=== PATIENT | female | born 1980 | race Caucasian/White ===

== ENCOUNTER 2024-03-28 13:24 | Outpatient (CLI) | payer OTHER, SELFPAY ==
--- OUTSIDE RECORDS SUMMARY | 2024-03-28 14:12 | XMS_ITS | Encounter Summary ---
Author Organization [facility] Address [address] [place] [address]. [place] [address] [place] [address] Care Team Providers Care Director Of Partner Marketing Name Role Phone Medardo Ellington MD Primary Care Provider + Encounter Details Date Type Department Care Team ([facility] Contact Info) Description 08/11/[address] [facility] [address] [place] [address] Medardo Ellington MD [address] [place] [address] [place] Social History Tobacco Use Types Packs/Day Years Used Date Smoking Tobacco: Former Cigarettes 2013 Smokeless Tobacco: Current Comments:currently vapes Alcohol Use Standard Drinks/Week Comments Not Currently 0 (1 standard drink = 0.6 oz pur e alcohol) AUDIT-C Answer Date Recorded Frequency of Alcohol Consumption Never 01/15/2018 Average Number of Drinks Not on file 018 Frequency of Binge Drinking Not on file 12/28 PHQ-2 Answer Date Recorded Patient Health Questionnaire-2 Score 0 04/26/2023 Comments No Sex and Gender Information Value Date Recorded Sex Assigned at Female 12/06/2018 11:13 AM CDT Legal Sex Female 8:20 PM CDT Gender Identity Female 12/06/2018 11:13 AM CDT Sexual Orientation Straight 12/06/2018 11 :13 AM CDT documented as of this encounter Plan of Treatment Upcoming Encounters Date Type Department Care Team ([facility] Contact Info) Description 04/17/2024 11:00 AM AIR TRAFFIC CONTROL SPECIALIST [facility] [address] [facility], [address] [place] [phone] Rebecca Berg MD 3 [facility] [place] [address] 06/25/2024 11:20 AM CDT [facility] 3 [facility], [address] [place] [phone] Peggy Urbina NP 3 [facility] [address] [place] [address] 07/02/2024 10:30 AM CDT Office Visit [facility] [address] [place] [address] Joe Herrera MD 3 [facility] [address] [place] [phone] documented as of this encounter Visit Diagnoses Not on filedocumented in this encounter Additional Health Concerns Assessment Noted Time PHQ-9 Depression Total Score: 0 04/15/19 22 2:24 PM AIR TRAFFIC CONTROL SPECIALIST documented as of this encounter Care Teams Director Of Partner Marketing Relationship Specialty Start Date End Date Medardo Ellington MD [address] [place] [address] PCP - General FAMILY PRACTICE 08/24/18 documented as of this encounter
--- OUTSIDE RECORDS SUMMARY | 2024-03-28 14:12 | XMS_ITS | Encounter Summary ---
Author Organization [facility] Address [address] [place] [address]. [place] [address] [place] [address] Care Team Providers Care Actuarial Technician Name Role Phone Medardo Ellington MD Primary Care Provider + Encounter Details Date Type Department Care Team (Late st Contact Info) Description 02/07/2024 [employer] Message [address] [address] [facility] Provider results Social History Tobacco Use Types Packs/Day Years Used Date Smoking Tobacco: Former Cigarettes 2013 Passive Smoke Exposure: Past Smokeless Tobacco: Current Comments:currently vapes Alcohol Use Standard Drinks/Week Comments Not Currently 0 (1 standard drink = 0.6 oz pur e alcohol) AUDIT-C Answer Date Recorded Frequency of Alcohol Consumption Never 01/15/2018 Average Number of Drinks Not on file 018 Frequency of Binge Drinking Not on file 12/28 PHQ-2 Answer Date Recorded Patient Health Questionnaire-2 Score 0 02/06/2024 Comments No Sex and Gender Information Value Date Recorded Sex Assigned at Female 12/06/2018 11:13 AM CDT Legal Sex Female 8:20 PM CDT Gender Identity Female 12/06/2018 11:13 AM CDT Sexual Orientation Straight 12/06/2018 11 :13 AM CDT documented as of this encounter Plan of Treatment Upcoming Encounters Date Type Department Care Team (Late st Contact Info) Description 04/17/2024 11:00 AM PHARMACY DISTRICT MANAGER Office Visit [facility] [address] [place] [address] Rebecca Berg MD 3 [facility] [place] [address] 06/25/2024 11:20 AM CDT Office Visit [facility] 3 [facility], [address] [place] [address] Peggy Urbina NP 3 [facility] [address] [place] [address] 07/02/2024 10:30 AM CDT [facility] [address] [place] [address] Joe Herrera MD 3 [facility] [address] [place] [address] documented as of this encounter Visit Diagnoses Not on filedocumented in this encounter Additional Health Concerns Assessment Noted Time PHQ-9 Depression Total Score: 0 04/15/19 22 2:24 PM PHARMACY DISTRICT MANAGER documented as of this encounter Care Teams Actuarial Technician Relationship Specialty Start Date End Date Medardo Ellington MD [address] [place] [address] PCP - General FAMILY PRACTICE 08/24/18 documented as of this encounter
--- OUTSIDE RECORDS SUMMARY | 2024-03-28 14:12 | XMS_ITS | Encounter Summary ---
Author Organization [facility] Address [address] [place] [address]. [place], [place] [address] [place] [address] Care Team Providers Care Food Science Technician Name Role Phone Weston Pemberton DO Primary Care Provider Medardo Ellington MD Primary Care Provider + Encounter Details Date Type Department Care Team (Late st Contact Info) Description 01/27/2017 Abstract [email or web address] Conversion Medardo Ellington MD [address] [address] Social History Tobacco Use Types Packs/Day Years Used Date Smoking Tobacco: Never Assessed Comments Unknown Sex and Gender Information Value Date Recorded Sex Assigned at Female 12/06/2018 11:13 AM CDT Legal Sex Female 8:20 PM CDT Gender Identity Female 12/06/2018 11:13 AM CDT Sexual Orientation Straight 12/06/2018 11 :13 AM CDT documented as of this encounter Miscellaneous Notes * Letter - Medardo Ellington MD - 01/27/2017 12:00 AM CST Jan 27, 2017 Cara Cerda [address] [place] [address] Dear Cara Cerda, Thank you for choosing [facility] for your health care needs. We appreciate the opportunity to help you maintain your well being. You recently had labs drawn (CBC). Your results came back normal. Please remember to follow up as discussed at your last appointment .If you have any questions please feel free to call the office at [phone], Option #3 or Option #1 to make an appointment to discuss these results. Respectfully Yours, Electronically Signed by: Medardo Ellington MD Cc: Patients Medical Record NSE TRAVEL ADMINISTRATOR documented in this encounter Plan of Treatment Upcoming Encounters Date Type Department Care Team (Late st Contact Info) Description 04/17/2024 11:00 AM DEFENSE TRAVEL ADMINISTRATOR Office [facility] 3 [facility], [address] [place] [phone] Rebecca Berg MD [address] [place] [address] 06/25/2024 11:20 AM CDT Office Visit [facility] 3 [facility], [address] [place] [phone] Peggy Urbina NP 3 [facility] [address] [place] [address] 07/02/2024 10:30 AM CDT [facility] [address] [place] [phone] Joe Herrera MD 3 [facility] [address] [place] [address] documented as of this encounter Visit Diagnoses Not on filedocumented in this encounter Additional Health Concerns Infection Onset Date Last Indicated Resolved Time COVID-19 Rule Out 11/11/2021 11/11/2021 11/11/2021 9:16 PM CDT documented as of this encounter Care Teams Food Science Technician Relationship Specialty Start Date End Date Weston Pemberton DO PCP - General 08/03/11 08/23/18 Medardo Ellington MD [address] [facility] [address] [place] [address] PCP - General FAMILY PRACTICE 08/24/18 documented as of this encounter
--- OUTSIDE RECORDS SUMMARY | 2024-03-28 14:12 | XMS_ITS | Encounter Summary ---
Author Organization [facility] Address [address] [place] [address]. [place] [address] [place] [address] Care Team Providers Care Refrigeration Repair Supervisor Name Role Phone Medardo Ellington MD Primary Care Provider + Reason for Referral * Surgical (Routine) - Authorized Specialty Diagnoses / Procedures Referred By Contac t Referred To Contact HAND SURGERY / ORTHOPAEDICS Diagnoses Pain of right thumb Procedures OFFICE/OUTPATIENT NEW LOW MDM 30-44 MINUTES OFFICE/OUTPT VISIT,NEW,LEVL IV OFFICE/OUTPT VISIT,NEW,LEVL V OFFICE/OUTPT VISIT,EST,LEVL III OFFICE/OUTPT VISIT,EST,LEVL IV OFFICE/OUTPT VISIT,EST,LEVL V Medardo Ellington MD [address] [address] Phone: tel: fax: Douglas James MD [address] [place] [address] Phone: tel: fax: Referral ID Status Reason Start Date Expiration Date V isits Requested Visits Authorized [id number] Authorized 04/27/2023 05/26/2024 100 100 MITE CARTRIDGE CRIMPER Encounter Details Date Type Department Care Team (Late st Contact Info) Description 04/20/2023 [employer] Message [facility] [address] [place] [address] [facility] Provider results Social History Tobacco Use Types Packs/Day Years Used Date Smoking Tobacco: Former Cigarettes 2013 Electronic Cigarettes Smokeless Tobacco: Current Comments:currently vapes Alcohol Use Standard Drinks/Week Comments No 0 (1 standard drink = 0.6 oz pur e alcohol) AUDIT-C Answer Date Recorded Frequency of Alcohol Consumption Never 01/15/2018 Average Number of Drinks Not on file 018 Frequency of Binge Drinking Not on file 12/28 PHQ-2 Answer Date Recorded Patient Health Questionnaire-2 Score 0 04/18/2023 Comments No Sex and Gender Information Value Date Recorded Sex Assigned at Female 12/06/2018 11:13 AM CDT Legal Sex Female 8:20 PM CDT Gender Identity Female 12/06/2018 11:13 AM CDT Sexual Orientation Straight 12/06/2018 11 :13 AM CDT documented as of this encounter Progress Notes * Isis Eldridge RN - 04/27/2023 11:01 AM CSTFrom: Isis Schultz To: Cara [place]da Sent: 04/20/2023 3:19 PM DYNAMITE CARTRIDGE CRIMPER Subject: results Dr Chnadana Marroquin got your xray results back and he said that your xray showed mild arthritis. He said that if the celebrex isn't helpful, let us know and he will refer you to a hand specialist. Please let meknow if you have any questions. Thanks, JORGE ALBERTO Marinelli MITE CARTRIDGE CRIMPER documented in this encounter Plan of Treatment Upcoming Encounters Date Type Department Care Team (Late st Contact Info) Description 04/17/2024 11:00 AM DYNAMITE CARTRIDGE CRIMPER Office Visit [facility] 3 [facility], [address] [place] [address] Rebecca Berg MD 3 [place] [address] 06/25/2024 11:20 AM CDT Office Visit [facility] - [facility] [address] [facility], [address] [place] [address] Peggy Urbina NP 3 [facility] [address] [place] [address] 07/02/2024 10:30 AM CDT Office Visit [facility] [address] [place] [phone] Joe Herrera MD 3 [facility] [address] [place] [address] Scheduled Referrals Name Type Priority Associated Diagnoses Orde r Schedule Ambulatory referral to Hand Surgery Referral Routine Pain of right thumb Ordered: 04/27/2023 documented as of this encounter Visit Diagnoses Diagnosis Pain of right thumb- Primary Pain in limb documented in this encounter Additional Health Concerns Assessment Noted Time PHQ-9 Depression Total Score: 0 04/15/19 22 2:24 PM DYNAMITE CARTRIDGE CRIMPER documented as of this encounter Care Teams Refrigeration Repair Supervisor Relationship Specialty Start Date End Date Medardo Ellington MD [address] [place] [phone] PCP - General FAMILY PRACTICE 08/24/18 documented as of this encounter
--- OUTSIDE RECORDS SUMMARY | 2024-03-28 14:12 | XMS_ITS | Encounter Summary ---
Author Organization [facility] Address [address] [place] [address]. [place] [address] [place] [address] Care Team Providers Care Flower Cutter Name Role Phone Medardo Ellington MD Primary Care Provider + Reason for Visit * Reason Comments Migraine Migraines are better . They are not everyday. * Consultation (Routine) - Authorized Specialty Diagnoses / Procedures Referred By Contac t Referred To Contact NEUROLOGY Diagnoses Migraine syndrome Procedures OFFICE/OUTPATIENT NEW LOW MDM 30-44 MINUTES OFFICE/OUTPT VISIT,NEW,LEVL IV OFFICE/OUTPT VISIT,NEW,LEVL V OFFICE/OUTPT VISIT,EST,LEVL III OFFICE/OUTPT VISIT,EST,LEVL IV OFFICE/OUTPT VISIT,EST,LEVL V Medardo Ellington MD [address] [address] Phone: tel: fax: [facility] [address], [address] [place] [address] Phone: tel: Referral ID Status Reason Start Date Expiration Date Visits Requested Visits Authorized [id number] Authorized Specialty Services 11/28/2023 12/28/2024 100 100 Encounter Details Date Type Department Care Team (Latest Contact Info) Description 03/28/2024 9:00 AM MAINTENANCE CONTROLLER Office Visit [address], [address] [place] [phone] Peggy Urbina NP 3 [facility] [address] [place] [address] Migraine (Migraines are better. They are not everyday. ) Social History Tobacco Use Types Packs/Day Years Used Date Smoking Tobacco: Former Cigarettes 2013 Passive Smoke Exposure: Past Smokeless Tobacco: Current Tobacco Cessation:Ready to Q uit: No; Counseling Given: Yes Comments:currently vapes Alcohol Use Standard Drinks/Week Comments Not Currently 0 (1 standard drink = 0.6 oz pur e alcohol) AUDIT-C Answer Date Recorded Frequency of Alcohol Consumption Never 01/15/2018 Average Number of Drinks Not on file 018 Frequency of Binge Drinking Not on file 12/28 PHQ-2 Answer Date Recorded Patient Health Questionnaire-2 Score 0 03/07/2024 Comments No Sex and Gender Information Value Date Recorded Sex Assigned at Female 12/06/2018 11:13 AM CDT Legal Sex Female 8:20 PM CDT Gender Identity Female 12/06/2018 11:13 AM CDT Sexual Orientation Straight 12/06/2018 11 :13 AM CDT documented as of this encounter Last Filed Vital Signs Vital Sign Reading Time Taken Comments Blood Pressure - - Pulse 97 03/28/2024 9:12 AM MAINTENANCE CONTROLLER Temperature - - Respiratory Rate - - Oxygen Saturation 97% 03/28/2024 9:12 AM MAINTENANCE CONTROLLER Inhaled Oxygen Concentration - - Weight 92.1 kg (203 lb) 03/28/2024 9:12 AM MAINTENANCE CONTROLLER Height 177.8 cm (5' 10 ) 03/28/2024 9:12 AM MAINTENANCE CONTROLLER Body Mass Index 29.13 03/28/2024 9:12 AM MAINTENANCE CONTROLLER documented in this encounter Plan of Treatment Upcoming Encounters Date Type Department Care Team (Late st Contact Info) Description 04/17/2024 11:00 AM MAINTENANCE CONTROLLER Office [facility] 3 [facility], [address] [place] [phone] Rebecca Berg MD 3 [facility] [place] [address] 06/25/2024 11:20 AM CDT Office Visit [facility] - [facility] 3 [facility], [address] [place] [address] Peggy Urbina NP 3 [facility] [address] [place] [address] 07/02/2024 10:30 AM CDT Office Visit [facility] [address] [place] [address] Joe Herrera MD 3 [facility] [address] [place] [phone] documented as of this encounter Visit Diagnoses Diagnosis Chronic migraine without aura without status migrainosus, not intractable- Primary Chronic migraine without aura, without mention of intractable migraine without mention of status migrainosus documented in this encounter Additional Health Concerns Assessment Noted Time PHQ-9 Depression Total Score: 0 04/15/19 22 2:24 PM MAINTENANCE CONTROLLER documented as of this encounter Care Teams Flower Cutter Relationship Specialty Start Date End Date Medardo Ellington MD [address] [place] [address] PCP - General FAMILY PRACTICE 08/24/18 documented as of this encounter
--- OUTSIDE RECORDS SUMMARY | 2024-03-28 14:12 | XMS_ITS | Encounter Summary ---
Author Organization [facility] Address [address] [place] [address]. [place] [address] [place] [address] Care Team Providers Care Bead Maker Name Role Phone Medardo Ellington MD Primary Care Provider + Encounter Details Date Type Department Care Team (Latest Contact Info) Description 03/21/2024 PS DEPT. Message [facility] [address] Joe Herrera MD [address] [place] [address] [place] [address] EKG results faxed to surgeon Social History Tobacco Use Types Packs/Day Years [...] st Contact Info) Description 04/17/2024 11:00 AM [employer]CE [employer] OFFICER [facility] 3 [facility], [address] [place] [address] Rebecca Berg MD 3 [place] [address] 06/25/2024 11:20 AM CDT [facility] 3 [facility], [address] [place] [address] Peggy Urbina NP 3 [facility] [address] [place] [address] 07/02/2024 10:30 AM CDT Office Visit [facility] [address] [place] [address] Joe Herrera MD 3 [facility] [address] [place] [phone] documented as of this encounter Visit Diagnoses Not on filedocumented in this encounter Additional Health Concerns Assessment Noted Time PHQ-9 Depression Total Score: 0 04/15/19 22 2:24 PM [employer] OFFICER documented as of this encounter Care Teams Bead Maker Relationship Specialty Start Date End Date Medardo Ellington MD [address] [place] [phone] PCP - General FAMILY PRACTICE 08/24/18 documented as of this encounter
--- OUTSIDE RECORDS SUMMARY | 2024-03-28 14:12 | XMS_ITS | Encounter Summary ---
Author Organization [facility] Address [address] [place] [address]. [place], [place] [address] [place] [address] Care Team Providers Care Dimensional Engineer Name Role Phone Medardo Ellington MD Primary Care Provider + Encounter Details Date Type Department Care Team (Latest Contact Info) Description 03/28/2024 Travel Social History Tobacco Use Types Packs/Day Years [...] st Contact Info) Description 04/17/2024 11:00 AM GUINEA PIG BREEDER Office Visit [facility] - [address], [address] [place] [address] Rebecca Berg MD 3 [facility] [place] [address] 06/25/2024 11:20 AM CDT Office Visit [facility] - [facility] [address] [facility], [address] [place] [address] Peggy Urbina NP 3 [facility] [address] [place] [address] 07/02/2024 10:30 AM CDT Office Visit [facility] [address] [place] [address] Joe Herrera MD 3 [facility] [place] [address] [place] [phone] documented as of this encounter Visit Diagnoses Not on filedocumented in this encounter Additional Health Concerns Assessment Noted Time PHQ-9 Depression Total Score: 0 04/15/19 22 2:24 PM GUINEA PIG BREEDER documented as of this encounter Care Teams Dimensional Engineer Relationship Specialty Start Date End Date Medardo Ellington MD [address] [place] [address] PCP - General FAMILY PRACTICE 08/24/18 documented as of this encounter
--- OUTSIDE RECORDS SUMMARY | 2024-03-28 14:12 | XMS_ITS | Encounter Summary ---
Author Organization [facility] Address [address] [place] [address]. [place] [address] [place] [address] Care Team Providers Care Medical Territory Manager Name Role Phone Medardo Ellington MD Primary Care Provider + Encounter Details Date Type Department Care Team (Latest Contact Info) Description 02/01/2024 Egr Renovation Message Enc [facility] Multispecialty Care - [facility] [address] [facility] [place] [address] Estevan Clement MD 3 [facility] [address] [place], [place] [id number] Orders for Tests Social History Tobacco Use Types Packs/Day Years [...] Date Recorded Patient Health Questionnaire-2 Score 0 01/11/2024 Comments No Sex and Gender Information Value Date Recorded Sex Assigned at Female 12/06/2018 11:13 AM CDT Legal Sex Female 8:20 PM CDT Gender Identity Female 12/06/2018 11:13 AM CDT Sexual Orientation Straight 12/06/2018 11 :13 AM CDT documented as of this encounter Plan of Treatment Upcoming Encounters Date Type Department Care Team (Late st Contact Info) Description 04/17/2024 11:00 AM WINDOWS SOFTWARE DEVELOPER Office Visit [facility] [address] [facility], [address] [place] [address] Rebecca Berg MD 3 [facility] [place] [address] 06/25/2024 11:20 AM CDT Office Visit [facility] [address] [facility], [address] [place] [address] Peggy Urbina NP 3 [facility] [address] [place] [address] 07/02/2024 10:30 AM CDT Office Visit [facility] [address] [place] [address] Joe Herrera MD 3 [facility] [address] [place] [phone] documented as of this encounter Visit Diagnoses Not on filedocumented in this encounter Additional Health Concerns Assessment Noted Time PHQ-9 Depression Total Score: 0 04/15/19 22 2:24 PM WINDOWS SOFTWARE DEVELOPER documented as of this encounter Care Teams Medical Territory Manager Relationship Specialty Start Date End Date Medardo Ellington MD [address] [place] [phone] PCP - General FAMILY PRACTICE 08/24/18 documented as of this encounter
--- OUTSIDE RECORDS SUMMARY | 2024-03-28 14:12 | XMS_ITS | Clinical Summary ---
Author Organization [facility] Care Team Providers Care Indian Nanny Name Role Phone Unavailable Primary Care Provider Unavailabl e Social History Tobacco Use Types Packs/Day Years Used Date Smoking Tobacco: Never Assessed Comments Unknown Sex and Gender Information Value Date Recorded Sex Assigned at Not on file Legal Sex Female 12:24 PM FINISHED GOODS STOCK CLERK Gender Identity Not on file Sexual Orientation Not on file Plan of Treatment Health Maintenance Due Date Last Done Comments Hepatitis C Virus (HCV) Screening 1981 TdaP Immunization 1981 Hepatitis B Immunization (1 of 3 - 19+ 3-dose series) 2000 Pap Smear 2002 Cervical Cancer Screening (CCS) 08/28/2011 HPV/Cotest 08/28/2011 Discussion re Starting/Frequency of Mammograms 2021 Influenza Immunization (#1) 10/29/202303/2019, 12/15/2017, 12/25/2014 SARS-COV-2 Immunization ( season) 2023 03/24/2020, 02/25/2020 Respiratory Syncytial Virus (RSV) Immunization (Adult) (1 - 1-dose 75+ series) 2056 Meningococcal Immunization (ACWY) Aged Out No longer eligible b ased on patient's age to complete this topic Pneumococcal Immunization Combined Aged Out No longer eligible b ased on patient's age to complete this topic Rotavirus Immunization Aged Out No lo nger eligible based on patient's age to complete this topic
--- OUTSIDE RECORDS SUMMARY | 2024-03-28 14:12 | XMS_ITS | Encounter Summary ---
Author Organization [facility] Address [address] [place] [address]. [place] [address] [place] [address] Care Team Providers Care Silver Recovery Operator Name Role Phone Weston Pemberton DO Primary Care Provider [phone]- [phone] Medardo Ellington MD Primary Care Provider + Encounter Details Date Type Department Care Team (Late Contact Info) Description 07/04/2017 Abstract [facility] Conversion Md, Generic Conversion, Social History Tobacco Use Types Packs/Day Years [...] Encounters Date Type Department Care Team (Late Contact Info) Description 04/17/2024 11:00 AM WORKFORCE SERVICES REPRESENTATIVE Office Visit [address], [address] [place] [address] Rebecca Berg MD [address] [place] [address] 06/25/2024 11:20 AM CDT Office Visit [address] [place] [phone] Peggy Urbina NP 3 [facility] [address] [place] [address] 07/02/2024 10:30 AM CDT Office Visit [facility] [address] [place] [address] Joe Herrera MD 3 [facility] [address] [place] [address] documented as of this encounter Visit Diagnoses Not on filedocumented in this encounter Additional Health Concerns Infection Onset Date Last Indicated Resolved Time COVID-19 Rule Out 11/11/2021 11/11/2021 11/11/2021 9:16 PM CDT documented as of this encounter Care Teams Silver Recovery Operator Relationship Specialty Start Date End Date Weston Pemberton DO PCP - General 08/03/11 08/23/18 Medardo Ellington MD [address] [place] [address] PCP - General FAMILY PRACTICE 08/24/18 documented as of this encounter
--- OUTSIDE RECORDS SUMMARY | 2024-03-28 14:12 | XMS_ITS | Referral Summary ---
Author Organization [facility] Address [address] [place] [address] Care Team Providers Care Review Scheduling Coordinator Name Role Phone Unavailable Primary Care Provider Unavailabl e Source Comments [facility],non-owned Affiliates and Associated Physician Practices is amultiple site organization consisting of ambulatory clinics and hospital sitesin [place], [place], [place] and [place]. This disclosure is being madepursuant to the Care Everywhere program and may not contain all information available regarding this patient. Last updated 17.[facility] [employer] Social History Tobacco Use Types Packs/Day Years Used Date Smoking Tobacco: Never Assessed Sex and Gender Information Value Date Recorded Sex Assigned at Not on file Gender Identity Not on file Sexual Orientation Not on file Plan of Treatment Not on file
--- OUTSIDE RECORDS SUMMARY | 2024-03-28 14:12 | XMS_ITS | Encounter Summary ---
Author Organization [facility] Address [address] [place] [address]. [place] [address] [place] [address] Care Team Providers Care Wound Care Coordinator Name Role Phone Medardo Ellington MD Primary Care Provider + Encounter Details Date Type Department Care Team (Late st Contact Info) Description 06/09/[address] Pinoy[employer] [address] [address] [facility] Provider results Social History Tobacco Use Types [...] st Contact Info) Description 04/17/2024 11:00 AM REGULATOR ASSEMBLER Office Visit [facility] Multispecialty Care - [address], [address] [place] [address] Rebecca Berg MD 3 [place] [address] 06/25/2024 11:20 AM CDT Office Visit [facility] Multispecialty Care - [facility] 3 [facility], [address] [place] [address] Peggy Urbina NP 3 [facility] [address] [place] [address] 07/02/2024 10:30 AM CDT Office Visit [facility] [address] [place] [address] Joe Herrera MD 3 [facility] [place] [address] [place] [address] documented as of this encounter Visit Diagnoses Not on filedocumented in this encounter Additional Health Concerns Assessment Noted Time PHQ-9 Depression Total Score: 0 04/15/19 22 2:24 PM REGULATOR ASSEMBLER documented as of this encounter Care Teams Wound Care Coordinator Relationship Specialty Start Date End Date Medardo Ellington MD [address] [place] [address] PCP - General FAMILY PRACTICE 08/24/18 documented as of this encounter
--- OUTSIDE RECORDS SUMMARY | 2024-03-28 14:12 | XMS_ITS | Encounter Summary ---
Author Organization [facility] Address [address] [place] [address]. [place] [address] [place] [address] Care Team Providers Care Mechanical Assembly Technician Name Role Phone Medardo Ellington MD Primary Care Provider + Encounter Details Date Type Department Care Team (Late st Contact Info) Description 01/23/2024 Home Delivery Service (HDS) Message [facility] [address] [place] [address] Rebecca Bell NP [address] [place] [address] MRI brain Social History Tobacco Use Types Packs/Day Years [...] as of this encounter Progress Notes * Rebecca Bell NP - 01/26/2024 7:09 AM CST I did not order an MRI for this patient. E HEATER documented in this encounter Plan of Treatment Upcoming Encounters Date Type Department Care Team (Late st Contact Info) Description 04/17/2024 11:00 AM FORGE HEATER Office Visit [facility] [address] [facility], [address] [place] [address] Rebecca Berg MD 3 [place] [address] 06/25/2024 11:20 AM CDT Office Visit [facility] [address] [facility], [address] [place] [phone] Peggy Urbina NP 3 [facility] [address] [place], [place] [phone] 07/02/2024 10:30 AM CDT Office Visit [facility] [address] [place] [address] Joe Herrera MD 3 [facility] [address] [place] [address] documented as of this encounter Visit Diagnoses Not on filedocumented in this encounter Additional Health Concerns Assessment Noted Time PHQ-9 Depression Total Score: 0 04/15/19 22 2:24 PM FORGE HEATER documented as of this encounter Care Teams Mechanical Assembly Technician Relationship Specialty Start Date End Date Medardo Ellington MD [address] [place] [address] PCP - General FAMILY PRACTICE 08/24/18 documented as of this encounter
--- OUTSIDE RECORDS SUMMARY | 2024-03-28 14:12 | XMS_ITS | Encounter Summary ---
Author Organization [facility] Address [address] [place] [address]. [place] [address] [place] [address] Care Team Providers Care Finish Repair Worker Name Role Phone Medardo Ellington MD Primary Care Provider + Encounter Details Date Type Department Care Team (Late st Contact Info) Description 02/26/2024 Absio Message Enc [facility] Medical [facility] General Surgery - [place] [address], [address] [place] [address] Mary Baez MD [address] [place] [address] Request for sooner appointment Social History Tobacco Use Types Packs/Day Years [...] Date Recorded Patient Health Questionnaire-2 Score 0 02/15/2024 Comments No Sex and Gender Information Value Date Recorded Sex Assigned at Female 12/06/2018 11:13 AM CDT Legal Sex Female 8:20 PM CDT Gender Identity Female 12/06/2018 11:13 AM CDT Sexual Orientation Straight 12/06/2018 11 :13 AM CDT documented as of this encounter Plan of Treatment Upcoming Encounters Date Type Department Care Team (Late st Contact Info) Description 04/17/2024 11:00 AM DRAINLAYER [facility] 3 [facility], [address] [place] [address] Rebecca Berg MD 3 [facility] [place] [address] 06/25/2024 11:20 AM CDT [facility] 3 [facility], [address] [place] [address] Peggy Urbina NP 3 [facility] [address] [place] [address] 07/02/2024 10:30 AM CDT Office Visit [facility] [address] [place] [address] Joe Herrera MD 3 [facility] [address] [place] [address] documented as of this encounter Visit Diagnoses Not on filedocumented in this encounter Additional Health Concerns Assessment Noted Time PHQ-9 Depression Total Score: 0 04/15/19 22 2:24 PM DRAINLAYER documented as of this encounter Care Teams Finish Repair Worker Relationship Specialty Start Date End Date Medardo Ellington MD [address] [place] [phone] PCP - General FAMILY PRACTICE 08/24/18 documented as of this encounter
--- OUTSIDE RECORDS SUMMARY | 2024-03-28 14:12 | XMS_ITS | Encounter Summary ---
Author Organization [facility] Address [address] [place] [address]. [place] [address] [place] [address] Care Team Providers Care Buckle Wire Inserter Name Role Phone Medardo Ellington MD Primary Care Provider + Encounter Details Date Type Department Care Team (Late st Contact Info) Description 04/27/[address] [address] [facility] Provider results Social History Tobacco Use [...] st Contact Info) Description 04/17/2024 11:00 AM FLIGHT ENGINEER MANAGER Office Visit [facility] Group Multispecialty Care - [address] [place] [address] Rebecca Berg MD 3 [place] [address] 06/25/2024 11:20 AM CDT Office Visit [facility] Medical Group Multispecialty Care - [facility] [address] [facility], [address] [place] [address] Peggy Urbina NP 3 [facility] [address] [place] [address] 07/02/2024 10:30 AM CDT Office Visit [facility] [address] [place] [address] Joe Herrera MD 3 [facility] [address] [place] [address] documented as of this encounter Visit Diagnoses Not on filedocumented in this encounter Additional Health Concerns Assessment Noted Time PHQ-9 Depression Total Score: 0 04/15/19 22 2:24 PM FLIGHT ENGINEER MANAGER documented as of this encounter Care Teams Buckle Wire Inserter Relationship Specialty Start Date End Date Medardo Ellington MD [address] [place] [address] PCP - General FAMILY PRACTICE 08/24/18 documented as of this encounter
--- OUTSIDE RECORDS SUMMARY | 2024-03-28 14:12 | XMS_ITS | Clinical Summary ---
Author Organization [facility] [employer] Address [address] [place] [address] Care Team Providers Care Operator Vacuum Name Role Phone Unavailable Primary Care Provider Unavailabl e Source Comments [facility],non-owned Affiliates and Associated Physician Practices is amultiple site organization consisting of ambulatory clinics and hospital sitesin [place], [place]. This disclosure is being madepursuant to the Care Everywhere program and may not contain all information available regarding this patient. Last updated 17.[facility] [employer] Social History Tobacco Use Types Packs/Day Years Used Date Smoking Tobacco: Never Assessed Sex and Gender Information Value Date Recorded Sex Assigned at Not on file Gender Identity Not on file Sexual Orientation Not on file Plan of Treatment Health Maintenance Due Date Last Done Comments LIPID TESTING 1981 MAMMOGRAM 1981 PAP SMEAR 1981 HIV SCREENING 1996 HEPATITIS C SCREENING 08/23/1999 DTAP/TDAP/TD VACCINES (1 - Tdap) 2000 HEPATITIS B VACCINE (1 of 3 - 19+ 3-dose series) 2000 COVID-19 VACCINE ( - 2023-2 5 season) 2023 INFLUENZA VACCINE (#1) 2023 DEPRESSION SCREENING 02/28/2024 ZOSTER VACCINE (1 of 2) 08/28/2031 HIB VACCINE Aged Out No longer eligi ble based on patient's age to complete this topic HPV VACCINE Aged Out No longer eligi ble based on patient's age to complete this topic MENINGOCOCCAL (Group B) VACCINE Aged Out No longer eligible based on patient's age to complete this topic MENINGOCOCCAL VACCINE Aged Out No sea yadira eligible based on patient's age to complete this topic PNEUMOCOCCAL VACCINE Aged Out No long er eligible based on patient's age to complete this topic
--- OUTSIDE RECORDS SUMMARY | 2024-03-28 14:12 | XMS_ITS | Encounter Summary ---
Author Organization [facility] Address [address] [place] [address]. [place] [address] [place] [address] Care Team Providers Care Ep Tech Name Role Phone Medardo Ellington MD Primary Care Provider + Encounter Details Date Type Department Care Team (Late st Contact Info) Description 03/28/2024 LiveVox Message Enc [facility] Multispecialty Care - [facility] 3 [facility], [address] [place] [address] Peggy Urbina NP 3 [facility] [address] [place] [address] [employer] Social History Tobacco Use Types Packs/Day Years [...] st Contact Info) Description 04/17/2024 11:00 AM INSTRUCTIONAL CONSULTANT Office Visit [facility] 3 [facility], [address] [place] [address] Rebecca Berg MD 3 [facility] [place] [address] 06/25/2024 11:20 AM CDT Office Visit [facility] [address] [facility], [address] [place] [address] Peggy Urbina NP 3 [facility] [address] [place] [address] 07/02/2024 10:30 AM CDT Office Visit [facility] [address] [place] [phone] Joe Herrera MD 3 [facility] [address] [place] [address] documented as of this encounter Visit Diagnoses Not on filedocumented in this encounter Additional Health Concerns Assessment Noted Time PHQ-9 Depression Total Score: 0 04/15/19 22 2:24 PM INSTRUCTIONAL CONSULTANT documented as of this encounter Care Teams Ep Tech Relationship Specialty Start Date End Date Medardo Ellington MD [address] [place] [address] PCP - General FAMILY PRACTICE 08/24/18 documented as of this encounter
--- OUTSIDE RECORDS SUMMARY | 2024-03-28 14:12 | XMS_ITS | Clinical Summary ---
Author Organization [facility] Address [address] [place] [address]. [place] [address] [place] [address] Care Team Providers Care Colorectal Surgeon Name Role Phone Medardo Huynh MD Primary Care Provider + Allergies Active Allergy Reactions Criticality Noted Date Comments Sulfamethoxazole-Tri methoprim Other (see comment) 07/19/2009 States medication did not work for her and MD put down as an allergy. Pt denies any reaction. Pickled Meat Headache 01/20/2021 And sausages cause left sided headaches Medications esomeprazole (NEXIUM) 20 MG capsule Take 1 capsule (20 mg total) by mouth daily. 017 Active triamcinolone (KENALOG) 0.1 % creamIndications: Eczema, unspecified type APPLY TOPICALLY TO AFFECTED AREA TWICE A DAY 454 g 1 022 Active Additional Information Patient taking differently: PRN, APPLY TOPICALLY TO AFFECTED AREA TWICE A DAY, Reported on 03/28/2024 clonazePAM (KLONOPIN) 0.5 MG tabletIndications :Anxiety Take 1 tablet (0.5 mg total) by mouth 2 (two) times daily as needed for Anxiety. 45 tablet 024 Active celecoxib (CELEBREX) 200 MG capsuleIndication s:Pain of right thumb take 1 capsule by mouth twice a day 60 capsule 5 024 Active LINZESS 290 MCG capsuleIndication s:Chronic idiopathic constipation TAKE 1 CAPSULE (290 MCG TOTAL) BY MOUTH EVERY MORNING BEFORE BREAKFAST. TAKE ON EMPTY STOMACH AT LEAST 30 MINUTES PRIOR TO THE FIRST MEAL OF THE DAY. SWALLOW WHOLE. DO NOT OPEN CAPSULE OR CHEW. 90 capsule 1 Active atomoxetine (STRATTERA) 60 MG capsuleIndication s:Attention deficit disorder (ADD) without hyperactivity Take 1 capsule (60 mg total) by mouth 2 (two) times daily. 180 capsule 1 Active atogepant (QULIPTA) tabletIndications :Chronic migraine without aura without status migrainosus, not intractable Take 1 tablet (60 mg total) by mouth daily. 30 tablet 11 024 2024 Active ubrogepant (UBRELVY) 100 MG tabletIndications :Chronic migraine without aura without status migrainosus, not intractable Take 1 tablet (100 mg total) by mouth 2 (two) times daily as needed. Max of 2 tablets (200 mg) in 24 hours 16 tablet 11 Active rizatriptan (MAXALT) 10 MG tablet TAKE 1 TABLET (10 MG TOTAL) BY MOUTH DAILY NEEDED FOR MIGRAINE. Active semaglutide-weigh t management (WEGOVY) 0.5 mg/dose injection (PEN)Indications: Weight Loss Inject 0.5 mg into the skin once a week. Indications: Weight Loss Okay to compound 1 mL Active ondansetron (ZOFRAN-ODT) 4 MG disintegrating tabletIndications :Pain of upper abdomen,Nausea Take 1 tablet (4 mg total) by mouth every 6 (six) hours as needed for Nausea. 50 tablet 5 Active ondansetron (ZOFRAN-ODT) 4 MG disintegrating tabletIndications :Pain of upper abdomen,Nausea Take 1 tablet (4 mg total) by mouth every 6 (six) hours as needed for Nausea. 20 tablet 2024 Discontinued(R eorder) azithromycin (ZITHROMAX Z-SAMUEL) 250 MG tabletIndications :Lower respiratory infection Take 2 tablets by mouth on day one then 1 daily for four days. 6 tablet 2024 Discontinued Active Problems Problem Noted Date Diagnosed Date Chronic migraine without aur a without status migrainosus, not intractable 03/28/2024 Tachycardia 03/05/2024 Elevated systolic blood pres sure reading without diagnosis of hypertension 03/05/2024 Gallbladder sludge 03/02/2024 RUQ pain 07/01/2021 Overview (07/01/2021): Added automatically from request for surgery [id number] Ileitis 03/18/2021 Rectal bleeding 01/05/2021 Anxiety 05/29/2018 Eczema 01/16/2018 Retrocalcaneal exostosis 08/01/2017 Achilles tendinitis of left lower extremity 06/2017 Neuralgia of right peroneal nerve 07/20/2017 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 [address], [address] [place] [address] Faith Urbina NP Migraine (Migraines are better. They are not everyday. ) 03/28/2024 MyChart Message [facility] - [address], [address] [place] [address] Faith Urbina NP Qulipta 03/28/2024 Travel 03/21/2024 MyChart Message Enc [facility] [address] Malinda Shea MD EKG results faxed to surgeon 03/07/2024 4:30 PM [employer]AL TR[employer] DRIVER Office Visit [facility] General Surgery - [address], [address] [place] [address] Mary Baez MD Gallbladder (Patient presents for gallbladder consult. ) 03/07/2024 2:00 PM [employer] A [employer]AL TRUCK DRIVER Office Visit [facility] Medical Group Multispecialty Care - [facility] [address] [facility] [place] [phone] Cary García NP Follow Up (F/u (RUQ pain)) 03/07/2024 Travel 03/05/2024 1:30 PM [employer]AL TRUCK DRIVER Office Visit [facility] [address] [place] [address] Malinda Shea MD Consult (Tachycardia) 03/05/2024 Travel 02/26/2024 MyChart Message Enc [facility] General Surgery - [place] [address] [facility], [address] [place] [address] Mary Baez MD Request for sooner appointment 02/23/2024 Scan Cognotion INFO SRVCS Scanned, [facility] 02/22/2024 MyChart Message [address] [address] Medardo Huynh MD Compound semaglutide 02/22/[address] [address] Mary Baez MD Appointment Request 02/19/2024 8:18 AM [employer] A [employer]AL TRUCK DRIVER - 02/19/2024 11:59 PM [employer]AL TRUCK DRIVER Hospital Encounter [facility] Ultrasound [address] [place] [address] Medardo Huynh MD Discharge Disposition: Home or Self Care (Routine Discharge) 02/19/2024 MyChart Message [address] [address] Yi, [facility] Provider results 02/19/2024 Travel 02/16/2024 Telephone [address] [place] [address] Medardo Huynh MD Results (Cardiac Event Monitor) 02/15/2024 11:20 AM [employer]AL TR[employer] DRIVER Office Visit [place] [address] [place] [address] Medardo Huynh MD Sinus Problem (Upper resp. ) 02/15/2024 Travel 02/09/2024 MyChart Message Enc [facility] Medical [facility] Multispecialty Care - [address], [address] [place] [address] Faith Urbina NP Brain MRI results 02/07/2024 MyChart Message Enc [address] [address] Yi [facility] Provider results 02/06/2024 12:06 PM [employer]AL TR[employer] DRIVER - 02/06/2024 11:59 PM [employer] A [employer]AL TRUCK DRIVER Hospital Encounter [facility] Laboratory [address] [facility] [place] [address] Medardo Huynh MD Discharge Disposition: Home or Self Care (Routine Discharge) 02/06/2024 12:06 PM [employer]AL TRUCK DRIVER - 02/06/2024 11:59 PM [facility] Hospital Encounter [facility] Diagnostic Imaging [address] [place] [address] Medardo Huynh MD Discharge Disposition: Home or Self Care (Routine Discharge) 02/06/2024 11:40 AM [employer] A [employer]AL TRUCK DRIVER Office Visit [place] [address] [place] [address] Medardo Huynh MD Abdominal Pain; Nausea 02/06/2024 MyChart Message Enc [address] [place] [address] Medardo Huynh MD Nausea 02/06/2024 Travel 02/01/2024 MyChart Message [facility] Multispecialty Care - [facility] [address] [facility] [place] [address] Estevan Clement MD Orders for Tests 01/26/2024 9:30 AM [employer]AL TRUCK DRIVER Telephone [facility] [address] [place] [address] Medardo Huynh MD Holter Monitor 01/23/2024 MyChart Message Enc [address] [address] Rebecca Bell, ABDOULAYE MRI brain 01/19/2024 1:20 PM [employer]AL TRUCK DRIVER Allied Health/Nurse Visit [address] [address] Medardo Huynh MD Allied Health Visit (Tdap inj ) 01/19/2024 Travel 01/15/2024 Telephone [facility] Medical Group Multispecialty Care - [facility] [address] [facility], [address] [place] [phone] Faith Urbina, PROFESSIONAL [employer]OKER [employer]ER Results 01/12/2024 MyChart Message [address] [address] [facility] results 01/11/2024 9:21 AM [employer]AL TRUCK DRIVER - 01/11/2024 11:59 PM [employer]AL TRUCK DRIVER Hospital Encounter [facility] Laboratory [address] [place], [place] [phone] Medardo Huynh MD Discharge Disposition: Home or Self Care (Routine Discharge) 01/11/2024 9:00 AM [employer]AL TR[employer] DRIVER Office Visit [address] [address] Medardo Huynh MD Weight Loss (Weight loss options and hot flashes) 01/11/2024 Travel 01/08/2024 Telephone [facility] [place] [address] [place] [address] Medardo Huynh MD Orders; Schedule Test 01/05/2024 MyChart Message [facility] [address] [place] [address] Medardo Huynh MD Cardiology referral 01/04/2024 10:36 AM [employer] A [employer]AL TR[employer] DRIVER - 01/04/2024 11:59 PM [employer]AL TRUCK DRIVER Hospital Encounter [facility] Sleep Lab [address] [place] [address] Faith Urbina NP Unspecified Sleep Apnea Discharge Disposition: Home or Self Care (Routine Discharge) 01/04/2024 Travel from Last 3 Months Immunizations Name Administration Dates Next Due Fluzone 6 Months+ Quad (0.5 mL Prefilled Syringe) 12/30/2019 Hepatitis B 03/09/2004,10/08/2003,09/08/2003 Influenza Adult (Generic) 01/02/2022,09/2020,12/15/2017, 015,12/09/2013,01/07/2010,12/28/2007,,01/07/2005 MMR (Generic) 10/12/1992,12/02/1982 MODERNA COVID-19 (12+) MRNA, LNP-S, PF, 100 MCG/ 0.5 ML DOSE 03/24/2020,02/25/2020 MODERNA COVID-19 (SUPER[employer]OR [employer]PAR[employer] DAMARI CARLOS), MRNA, LNP-S, PF, 50 MCG/ 0.25 ML DOSE 03/29/2021 Tdap (Adacel) 01/19/2024 Tdap (Generic) 08/26/2009,03/12/2008 Family History Medical History Relation Comments Depression Father Epilepsy Father Breast Cancer Maternal Aunt Heart Attack Maternal Grandfather Heart Disease Maternal Grandfather Cancer Mother Renal cell Colon Cancer Other 1 Cancer Other 2 Breast Cancer Other 3 Breast Cancer Paternal Aunt Arthritis Paternal Grandmother Cancer Paternal Grandmother Breast canc er- aunts and cousins on bith sides Colon Cancer Paternal Grandmother Diabetes Paternal Grandmother Hypertension Paternal Grandmother Stroke Paternal Grandmother Relation Status Comments Father Maternal Aunt Maternal Grandfather Mother Other 1 Other 2 Alive Other 3 Alive Paternal Aunt Paternal Grandmother Social History Tobacco Use Types Packs/Day Years [...] Orientation Straight 12/06/2018 11 :13 AM CDT Last Filed Vital Signs Vital Sign Reading Time Taken Comments Blood Pressure 147/87 03/07/2024 4:35 PM [employer]IVER Pulse 97 03/28/2024 9:12 AM [employer] A [employer]AL TRUCK DRIVER Temperature 36.7 ??C (98.1 ??F) 03/07/2024 4:35 PM CS T Respiratory Rate 16 03/07/2024 4:35 PM [employer] A [employer]AL TRUCK DRIVER Oxygen Saturation 97% 03/28/2024 9:12 AM CLASS A [employer]IONAL TRUCK DRIVER Inhaled Oxygen Concentration - - Weight 92.1 kg (203 lb) 03/28/2024 9:12 AM CLASS A [employer]IONAL TRUCK DRIVER Height 177.8 cm (5' 10 ) 03/28/2024 9:12 AM CLASS A [employer]IONAL TRUCK DRIVER Body Mass Index 29.13 03/28/2024 9:12 AM CLASS A REGIONAL TRUCK DRIVER Plan of Treatment Upcoming Encounters Date Type Department Care Team (Late st Contact Info) Description 04/17/2024 11:00 AM CLASS A [employer]AL TRUCK DRIVER Office Visit [facility] Medical Group Multispecialty Care - [address], [address] [place] [phone] Rebecca Berg MD [address] [place] [address] 06/25/2024 11:20 AM CDT Office Visit [facility] Medical Group Multispecialty Care - [facility] [address] [facility], [address] [place] [phone] Faith Urbina NP [address] [facility] [address] [place] [address] 07/02/2024 10:30 AM CDT Office Visit [facility] [address] Malinda Shea MD 3 [facility] [address] [place] [address] Health Maintenance Due Date Last Done Comments Cervical Cancer Screening Pap Smear (Age 30 to 64) Every 3 Years 1980 Annual Physical 1984 Hepatitis C 08/28/1999 Cervical Cancer Screening with HPV 12/30/2014 Cervical Cancer Screening Pap with HPV Testing (Age 30 to 64) Every 5 Years 12/30/2019 12/29/2014 COVID-19 Vaccine ( - season) 2023 03/29/2021, 03/24/2020, 02/25/2020 Influenza Adult (#1) 2023 01/02/2022, 12/04/2020, 12/30/2019, Additional history exists Mammogram Screening 06/07/2025 06/08/2023, 9 DTaP, Tdap and Td Vaccines (4 - Td or Tdap) 01/18/2034 01/19/2024, 08/26/2009, 03/12/2008 Hepatitis B Vaccines Completed 03/09/2004, 10/08/2003, 09/08/2003 PHQ-2 (Physician Leslie) Completed 03/07/2024 HPV Vaccines Aged Out No longer eligi ble based on patient's age to complete this topic Meningococcal B Vaccine Aged Out No l onger eligible based on patient's age to complete this topic Meningococcal Vaccine Aged Out No sea yadira eligible based on patient's age to complete this topic Pneumococcal Vaccine: Pediatrics (0 to 5 Years) and At-Risk Patients (6 to 64 Years) Aged Out No longer eligible based on patient's age to complete this topic RSV Immunizations Under 20 Months Aged Out No longer eligible based on patient's age to complete this topic Procedures Procedure Name Priority Date/Time Associated Diagnosis Comments ELECTROCARDIOGRAM (NON MIDMARK ACQUIRED) Routine 03/05/2024 1:43 PM [employer]AL TR[employer] DRIVER Gallbladder sludge Tachycardia US ABD LIMITED Routine 02/19/2024 8:39 AM CLASS A [employer]IONAL TRUCK DRIVER Pain of upper abdomen EVENT RECORDER (ECG) UP TO 30 DAYS COMPLETE Routine 02/12/2024 4:13 PM CLASS A [employer]IONAL TRUCK DRIVER Diaphoresis Nausea Lightheaded Dizziness XR ABD KUB Routine 02/06/2024 12:40 PM CLASS A [employer]AL TRUCK DRIVER Pain of upper abdomen LIPASE Routine 02/06/2024 12:10 PM CLASS A [employer]IONAL TRUCK DRIVER Pain of upper abdomen COMPREHENSIVE METABOLIC PANEL Routine 02/06/2024 12:10 PM CLASS A [employer]IONAL TRUCK DRIVER Pain of upper abdomen CBC W/DIFF AUTOMATED Routine 02/06/2024 12:10 PM CLASS A [employer]IONAL TRUCK DRIVER Pain of upper abdomen TSH W/REFLEX Routine 01/11/2024 9:28 AM CLASS A REGIONAL TRUCK DRIVER Hot flashes FSH, FOLLICLE STIM HORMONE Routine 01/11/2024 9:28 AM CLASS A REGIONAL TRUCK DRIVER Hot flashes IRON SAT PANEL (IRON,IBC,%SAT) Routine 01/11/2024 9:28 AM CLASS A REGIONAL TRUCK DRIVER Iron deficiency CBC W/DIFF AUTOMATED Routine 01/11/2024 9:28 AM CLASS A REGIONAL TRUCK DRIVER Iron deficiency HOME SLEEP STUDY - WATCHPAT Routine 01/04/2024 5:30 PM CLASS A [employer]IONAL TRUCK DRIVER Sleep apnea, unspecified type MG SCREENING W HANNAH MYKE DIGI Routine 06/08/2023 4:12 PM CDT Encounter for screening mammogram for malignant neoplasm of breast HPV MRNA E6/E7 Routine 12/29/2014 7:03 PM [employer] A [employer]IONAL TRUCK DRIVER from Last 3 Months or Most Recently Relevant to Health Maintenance Results * ELECTROCARDIOGRAM (03/05/2024 1:43 PM CLASS A REGIONAL TRUCK DRIVER) 03/05/2024 1:4 3 PM CLASS A REGIONAL TRUCK DRIVER Narrative [facility] - 03/06/2024 11:25 AM CLASS A REGIONAL TRUCK DRIVER ? [facility] [place] ? Test Date: ?2024-03-05 Pat Name: ? CARA CERDA ? Department: ?? 108 ? Room: ? Gender: ? Female ? Plastic Sewer: ?? : ?1980 ? Requested By: MALINDA SHEA Order Number: [id number] ?Reading : ?? Malinda Shea ? Measurements Intervals ?[place] ? Rate: ? 94 ? P: ?66 CT: ? 148 ?QRS: ?50 QRSD: ? 86 ? T: ?32 QT: ? 334 ? QTc: ?418 ? Interpretive Statements SINUS RHYTHM LOW QRS VOLTAGE IN PRECORDIAL LEADS COMPARED TO PREVIOUS TRACING No significant change S A REGIONAL TRUCK DRIVER Procedure Note Malinda Shea MD - 03/06/2024 [facility] Test Date: 2024-03-05 Pat Name: CARA CERDA Department: 108 Room: Gender: Female Plastic Sewer: : 1980 Requested By: MALINDA SHEA Order Number: [id number] Reading MD: Malinda Shea Measurements Intervals [place] Rate: 94 P: 66 CT: 148 QRS: 50 QRSD: 86 T: 32 QT: 334 QTc: 418 Interpretive Statements SINUS RHYTHM LOW QRS VOLTAGE IN PRECORDIAL LEADS COMPARED TO PREVIOUS TRACING No significant change S A REGIONAL TRUCK DRIVER Malinda Shea MD PROCEDURES-ORDERABLE NO CHARG E Final Result [facility] * US ABD LIMITED (02/19/2024 8:39 AM CLASS A [employer]IONAL TRUCK DRIVER) Anatomical Region Laterality Modality Abdomen Ultrasound 02/19/2024 8:45 AM CLASS A [employer]IONAL TRUCK DRIVER Impressions 02/19/2024 8:48 AM CLASS A [employer]IONAL TRUCK DRIVER IMPRESSION: Gallbladder sludge without sonographic evidence of acute cholecystitis. Ordered By: MEDARDO HUYNH Interpreted By: Yeyo Samuel MD, 02/19/2024 8:45 AM Narrative 02/19/2024 8:48 AM [employer] A [employer] [place] [address] EXAM: ABDOMINAL ULTRASOUND LIMITED INDICATION: Abdominal pain. TECHNIQUE: Grayscale, Color, and Spectral Doppler images of the right upper quadrant abdomen were obtained. COMPARISON: Abdominal ultrasound 06/16/2022. FINDINGS: ?? Pancreas: Limited visualization of the pancreas secondary to overlying bowel gas. Liver: Normal echogenicity. ?? No focal hepatic lesion identified. ?? The liver measures 14.0 cm. The main portal vein is patent with appropriate direction of flow. Gallbladder: Gallbladder sludge is present. No gallbladder wall thickening, or pericholecystic fluid. ?? Gallbladder wall thickness measures 2 mm. Sonographic Can's sign is negative. Bile Ducts: No intrahepatic or extrahepatic biliary ductal dilatation. Common bile duct measures 4 mm. Procedure Note Yeyo Samuel MD - 02/19/2024 [place] [address] EXAM: ABDOMINAL ULTRASOUND LIMITED INDICATION: Abdominal pain. TECHNIQUE: Grayscale, Color, and Spectral Doppler images of the rightupper quadrant abdomen were obtained. COMPARISON: Abdominal ultrasound 06/16/2022. FINDINGS: Pancreas: Limited visualization of the pancreas secondary to overlyingbowel gas. Liver: Normal echogenicity. No focal hepatic lesion identified. Theliver measures 14.0 cm. The main portal vein is patent with appropriatedirection of flow. Gallbladder: Gallbladder sludge is present. No gallbladder wallthickening, or pericholecystic fluid. Gallbladder wall thicknessmeasures 2 mm. Sonographic Can's sign is negative. Bile Ducts: No intrahepatic or extrahepatic biliary ductal dilatation.Common bile duct measures 4 mm. IMPRESSION: Gallbladder sludge without sonographic evidence of acute cholecystitis. Ordered By: MEDARDO HUYNH Interpreted By: Yeyo Samuel MD, 02/19/2024 8:45 AM us Medardo Huynh MD ULTRASOUND Final Re sult * EVENT RECORDER (ECG) UP TO 30 DAYS COMPLETE (02/12/2024 4:13 PM [employer]AL TRUCK DRIVER) Narrative [facility] - 02/12/2024 4:13 PM CLASS A REGIONAL TRUCK DRIVER [place], [place] ??[address] Phone: ?? Fax: ?? DIRECTOR OF NUCLEAR MEDICINE REPORT PATIENT NAME: ??Cara Cerda : ??1980 PCP: ??MEDARDO HUYNH MD INTERPRETING OFFICE MESSENGER HELPER: ??Daniel Raygoza MD INDICATION: ??Generalized hyperhidrosis. Baseline Rhythm * The baseline rhythm was Sinus Rhythm with heart rates ranged between 71 and 154 beats per minute, with average rate of 99 beats per minute. A-V Conduction * No Second Degree AV Block Type II. * No Third Degree AV Block. * No Pauses. Supraventricular Arrhythmia * There were 175 Supraventricular Ectopic beats with a burden of <1%. * 3 Supraventricular Tachycardia events - the longest episode was 1.9s on 01/28 01:42, and the fastest episode was 161 BPM on 02/04 06:09. Ventricular Arrhythmia * There were 124 Ventricular Ectopic beats with a burden of <1%. * No Ventricular Tachycardia. Atrial Fibrillation * No Atrial Fibrillation. Patient Triggered Events * 1 patient triggered events, 1 had symptoms specified. SUMMARY: Symptomatic sinus tachycardia. us Medardo Huynh MD CV VASCULAR ORDERABLES F inal Result [facility] * XR ABD KUB (02/06/2024 12:40 PM CLASS [employer]AL TRUCK DRIVER) Anatomical Region Laterality Modality Abdomen Radiographic Alma ging 02/06/2024 1:27 PM CLASS A [employer]IONAL TRUCK DRIVER Impressions 02/06/2024 1:29 PM CLASS A [employer]IONAL TRUCK DRIVER IMPRESSION: Paucity of small bowel gas limits evaluation of the bowel gas pattern. No peter dilatation. Mild colonic stool burden. Ordered By: MEDARDO HUYNH Interpreted By: Yeyo Samuel MD, 02/06/2024 1:27 PM Narrative 02/06/2024 1:29 PM CLASS A [employer]IONAL TRUCK DRIVER [facility] [address] [place] [address] XR ABD KUB INDICATION: pain ?? TECHNIQUE: AP supine views of the abdomen. 2 total images. COMPARISON: Abdominal radiograph 06/11/2020. FINDINGS: The upper abdomen an lung bases are not completely included in this examination. Paucity of small bowel gas limits evaluation of the bowel gas pattern. No peter dilatation. Mild colonic stool burden, greatest at the hepatic flexure. Stool and gas is seen the level the rectum. Ligation clips seen projecting over the pelvis. Limited evaluation for pneumoperitoneum on supine view. No pathologic calcifications identified. Osseous structures appear grossly intact. Procedure Note Yeyo Samuel MD - 02/06/2024 [facility] [address] [place] [address] XR ABD KUB INDICATION: pain TECHNIQUE: AP supine views of the abdomen. 2 total images. COMPARISON: Abdominal radiograph 06/11/2020. FINDINGS: The upper abdomen an lung bases are not completely included in thisexamination. Paucity of small bowel gas limits evaluation of the bowel gaspattern. No peter dilatation. Mild colonic stool burden, greatest at thehepatic flexure. Stool and gas is seen the level the rectum. Ligationclips seen projecting over the pelvis. Limited evaluation forpneumoperitoneum on supine view. No pathologic calcifications identified.Osseous structures appear grossly intact. IMPRESSION: Paucity of small bowel gas limits evaluation of the bowel gas pattern. Nofrank dilatation. Mild colonic stool burden. Ordered By: MEDARDO HUYNH Interpreted By: Yeyo Samuel MD, 02/06/2024 1:27 PM us Medardo Huynh MD GENERAL IMAGING Final Re sult * (ABNORMAL) COMPREHENSIVE METABOLIC PANEL (02/06/2024 12:10 PM CLASS A [employer]AL TRUCK DRIVER) GLUCOSE 77 70 - 99 MG/DL 02/06/2024 1:14 PM [facility] BUN 7 7 - 18 MG/DL 02/06/2024 1:14 PM [facility] CREATININE S/P/B 0.70 0.55 - 1.02 MG/DL 02/06/2024 1:14 PM [facility] SODIUM S/P/B 135(L) 136 - 145 MMOL/L 02/06/2024 1:14 PM [facility] POTASSIUM S/P/B 3.8 3.5 - 5.1 MMOL/L 02/06/2024 1:14 PM [facility] CHLORIDE S/P/B 99(L) 100 - 108 MMOL/L 02/06/2024 1:14 PM [facility] CO2 27.3 21 - 32 MMOL/L 02/06/2024 1:14 PM [facility] CALCIUM S/P/B 8.7 8.5 - 10.1 MG/DL 02/06/2024 1:14 PM [facility] BILIRUBIN TOTAL S/P/B 0.4 0.2 - 1.2 MG/DL 02/06/2024 1:14 PM [facility] Comment: THIS ASSAY IS NOT RECOMMENDED FOR PATIENTS UNDERGOING TREATMENT WITH ELTROMBOPAG DUE TO THE POTENTIAL FOR FALSELY ELEVATED RESULTS. TOTAL PROTEIN S/P/B 6.9 6.4 - 8.2 G/DL 02/06/2024 1:14 PM [facility] ALBUMIN S/P/B 3.6 3.4 - 5.0 G/DL 02/06/2024 1:14 PM [facility] AST 12(L) 15 - 37 U/L 02/06/2024 1:14 PM [facility] ALT 16 14 - 55 U/L 02/06/2024 1:14 PM [facility] ALKALINE PHOSPHATASE S/P/B 63 50 - 136 U/L 02/06/2024 1:14 PM [facility] ANION GAP 8.7 5 - 15 MMOL/L 02/06/2024 1:14 PM [facility] BUN CREATININE RATIO 10.0 6 - 26 02/06/2024 1:14 PM [facility] A/G RATIO 1.1 1.0 - 2.0 RATIO 02/06/2024 1:14 PM [facility] GFR ESTIMATE >90 >90 ML/MIN/1.7 3 M2 02/06/2024 1:14 PM [facility] Comment: NOTE: eGFR is not calculated for patients <18 years of age. This is an estimated GFR calculation using the new CKD EPI creatinine equation without race and so does not require a correction factor for race. This estimated GFR should not be used for calculating drug doses. 02/06/2024 12:1 0 PM [employer] us Medardo Huynh MD LABORATORY Final Re sult [facility] [address] [place] [address], * CBC W/DIFF AUTOMATED (02/06/2024 12:10 PM [employer]) Only the most recent of2 resultswithin the time period is included. WBC 7.61 4.50 - 11.00 x10'3/uL 02/06/2024 12:51 PM [facility] RBC 5.19 4.20 - 5.40 x10'6/uL 02/06/2024 12:51 PM [facility] HGB 15.3 12.0 - 16.0 G/DL 02/06/2024 12:51 PM [facility] HCT 46.4 38.0 - 48.0 % 02/06/2024 12:51 PM [facility] MCV 89.4 81.0 - 99.0 FL 02/06/2024 12:51 PM [facility] MCH 29.5 27.0 - 31.0 PG 02/06/2024 12:51 PM [facility] MCHC 33.0 32.0 - 36.0 G/DL 02/06/2024 12:51 PM [facility] RDW 13.2 11.5 - 14.5 % 02/06/2024 12:51 PM [facility] PLT 270 130 - 400 x10'3/uL 02/06/2024 12:51 PM [facility] MPV 10.3 9.3 - 12.2 FL 02/06/2024 12:51 PM [facility] CBC COMMENT AUTOMATED RBC MORPHOLOGY AND PLATELET EVALUATION NORMAL 02/06/2024 12:51 PM [facility] NEUTROPHILS % 74.9 % 02/06/2024 12:51 PM [facility] LYMPHOCYTES % 18.7 % 02/06/2024 12:51 PM [facility] MONOCYTES % 4.9 % 02/06/2024 12:51 PM [facility] EOSINOPHILS 0.8 % 02/06/2024 12:51 PM [employer] [facility] BASOPHILS 0.4 % 02/06/2024 12:51 PM [employer] [facility] IMMATURE GRANS % 0.3 % 02/06/20 12:51 PM [facility] NRBC % 0.0 % 02/06/2024 12:51 PM [facility] ABS. NEUTROPHILS TOTAL 5.71 1.80 - 7.70 x10'3/uL 02/06/2024 12:51 PM [facility] ABS. LYMPHOCYTES 1.42 1.00 - 4.80 x10'3/uL 02/06/2024 12:51 PM [facility] ABS. MONOCYTES 0.37 0.24 - 0.86 x10'3/uL 02/06/2024 12:51 PM [facility] ABS. EOSINOPHILS 0.06 0.04 - 0.36 x10'3/uL 02/06/2024 12:51 PM [employer] [facility] ABS. BASOPHILS 0.03 0.01 - 0.08 x10'3/uL 02/06/2024 12:51 PM [facility] ABS. IMMATURE GRANULOCYTES 0.02 0.00 - 0.49 x10'3/uL 02/06/2024 12:51 PM [facility] ABS. NUCLEATED RBC'S 0.00 0.00 - 0.01 x10'3/uL 02/06/2024 12:51 PM [facility] 02/06/2024 12:1 0 PM [employer] us Medardo Huynh MD LABORATORY Final Re sult [facility] [address] [place] [address], * LIPASE (02/06/2024 12:10 PM [employer]) LIPASE 47 16 - 77 UNITS/L 02/06/2024 1:14 PM [employer] [facility] 02/06/2024 12:1 0 PM [employer] Medardo Huynh MD LABORATORY Final Re sult Performing Organization Address City/[facility]/ZIP Co de Phone Number [facility] [address] [place] [address], [place] [phone] * TSH W/REFLEX (01/11/2024 9:28 AM [employer]) [facility] TSH 3.010 0.358 - 3.74 uIU/ML 01/11/2024 10:49 AM [employer] [facility] Comment: HIGH DOSES OF BIOTIN MAY INTERFERE WITH THIS TEST RESULT. CORRELATION TO CLINICAL HISTORY AND PRESENTATION RECOMMENDED. FREE T4 NOT INDICATED 01/11/2024 9:28 AM [employer] Medardo Huynh MD LABORATORY Final Re sult Performing Organization Address [facility] Co de Phone Number [facility] [address] [place] [address], [place] [phone] * (ABNORMAL) IRON SAT PANEL (IRON,IBC,%SAT) (01/11/2024 9:28 AM [employer]) [facility] IRON 36(L) 50 - 170 MCG/DL 01/11/2024 1:00 PM [employer] [facility] IRON BINDING CAPACITY 269 250 - 450 MCG/DL 01/11/2024 1:00 PM [facility] IRON SATURATION 13(L) 20 - 55 % 1:00 PM [employer] [facility] 01/11/2024 9:28 AM [employer] Medardo Huynh MD LABORATORY Final Re sult Performing Organization Address City/[facility]/ZIP Co de Phone Number [facility] [address] [facility] [place] [address], [place] [phone] * FSH, FOLLICLE STIM HORMONE (01/11/2024 9:28 AM [employer]) [facility] 12.3 MIU/ML 01/11/2024 2:16 PM [employer] [facility] Comment: REFERENCE RANGES FOR FEMALES: ??FOLLICULAR ? 3.5-12.5 ??MID-CYCLE ?4.7-21.5 ??LUTEAL ? 1.7-7.7 ??POSTMENOPAUSAL ?25.8-134.8 01/11/2024 9:28 AM [employer] Medardo Huynh MD LABORATORY Final Re liz Performing Organization Address City/[facility]/ZIP Co de Phone Number [facility] [address] [place] [address], [place] [phone] * Home Sleep Study - WatchPat ([id number]) (01/04/2024 5:30 PM [employer]) Narrative [facility] - 01/04/2024 5:30 PM [employer] Isaac Vega MD ? 01/15/2024 10:24 AM Patient Information First Name: CARA Last Name: ELLIS ID: [id number] Date: 1980 Age: 43 Gender: Female BMI: 34.0 (W=229 lb, H=5' 9 Sleep Study Information Study Date:01/06/2024 Referring Physician Information First Name: Last Name: FAITH URBINA 5.3.82.3 / 4.2.1210 / [birth year] S/H/A Version: WATCHPAT HOME SLEEP APNEA TEST REPORT SUMMARY DATA SLEEP STUDY/ARCHITECTURE: This patient was studied using a WatchPAT home sleep study device, The evaluation was initiated on 01/06/2024 at 9:24:28 PM and was stopped at 4:45:12 AM. The total recording time was 7 hrs, 20 min with total sleep evaluation of 6 hrs, 13 min. ANALYSIS: (pAHI = PAT Apnea-Hypopnea Index, pRDI = PAT Respiratory Disturbance Index) Total pAHI 4%: ??2.5 ?? Total pRDI: ??4.5 Average Sleep Oxygen Saturation: ?? 94 Minimum Sleep Oxygen Saturation: ??87 Mean Heart Rate During Sleep: ??95 Afib Total Duration: ??Not detected Afib Longest Duration: ??Not detected (Afib events < 60 seconds may be artifact) Premature Beats per Minute: ??<0.1 Rev. ?? Printed on:01/15/2024 01/06/2024,[id number],1980,Female *The automatic analysis events or stages have been edited. 539 Page 1 of 2 Sleep Study Report SUMMARY/DIAGNOSIS 1.) No Evidence of Obstructive Sleep Apnea. RECOMMENDATIONS This patient should maintain good sleep hygiene techniques, maintain a consistent sleep/wake schedule with adequate hours of sleep, and avoid hazardous activities when sleepy. The patient should be cautioned about factors that may potentially exacerbate snoring and other sleep-related issues, such as [employer] depressants, especially at bedtime. Raw data reviewed and electronically signed by: Isaac Vega ??on 01/15/2024 10:20:51 AM at ??4:20:56PM, [facility] Faith Urbina NP SLEEP CENTER ORDERABLES Adelina sofia Result [facility] [address] [place] [address], * MG SCREENING W HANNAH DUMONT (06/08/2023 4:12 PM CDT) Anatomical Region Laterality Modality Breast Bilateral Mammography 06/08/2023 5:22 PM CDT Impressions 06/08/2023 5:26 PM CDT IMPRESSION: ??No significant interval change. No mammographic evidence of malignancy. ? RECOMMENDATION: ??Routine ScreeningBilateral OVERALL IMAGING ASSESSMENT: ACR BI-RADS 2 - BENIGN FINDING(S). ? Ordered By: MEDARDO HUYNH Interpreted By: Omid Amaya, 06/08/2023 5:22 PM Narrative 06/08/2023 5:26 PM CDT EXAMINATION: MG SCREENING W HANNAH MYKE DIGI ? INDICATIONS: Screening ?? TECHNIQUE: Digital full field CC and MLO screening mammography bilaterally to include 3-D Tomosynthesis technique. This study was read with the assistance of a computer-aided detection system. HISTORY: No reported breast complaint. Family history of breast cancer x3. No documented personal or first degree family history of breast cancer. No documented prior breast procedure. COMPARISON: 12/31/2018. TISSUE DENSITY: The breast tissue is heterogeneously dense, which may obscure small masses. FINDINGS: Few typically benign round calcifications. No suspicious microcalcification or mass. No developing asymmetry or architectural distortion. No axillary adenopathy. us Medardo Huynh MD MAMMO Final Re sult * HPV MRNA E6/E7 (12/29/2014 7:03 PM [employer]) HPV MRNA E6/E7 SEE NOTE [facility] OUP TO EPIC CONVERSION Comment: Not Detected Reference range: NOT DETECTED This assay detects E6/E7 viral messenger RNA (mRNA) from 14 high-risk HPV types (16,18,31,33,35,39,45,51, 52,56,58,59,66,68). This test was performed using the APTIMA(R) TMA HPV Assay ([employer] For additional information, please refer to http://education.Gamerius/faq/RCG431x0 Test Performed by [facility], [facility], [address] [place] [address] Tony Hernandez M.D., Ph.D., Director of Laboratories , [facility] [id number] 12/29/2014 7:03 PM [employer] 12/29/2014 7:03 PM [employer] Narrative [facility] TO EPIC CONVERSION - 12/29/2014 7:03 PM [employer] [Task Note] HPV is normal. ??Awaiting pap. Nita Snow PA-C PATHOLOGY/CYTOLOGY ORDERAB LES Final Result [facility] TO EPIC CONVERSION from Last 3 Months or Most Recently Relevant to Health Maintenance Insurance [facility] Care Teams Colorectal Surgeon Relationship Specialty Start Date End Date Medardo Huynh MD [address] [facility] [address] [place] [address] PCP - General FAMILY PRACTICE 08/24/18
--- OUTSIDE RECORDS SUMMARY | 2024-03-28 14:12 | XMS_ITS | Clinical Summary ---
Author Organization [facility] Address [address] [place] [id number] Care Team Providers Care Geoscience Specialist Name Role Phone Medardo Ellington MD Primary Care Provider [phone] Allergies No known active allergies Medications traMADoL (ULTRAM) 50 mg tablet Take 1 tablet (50 mg total) by mouth every 6 (six) hours 10 tablet 02/23/2024 Active Encounters Date Type Department Care Team Description 02/23/2024 4:45 PM TAMPING MACHINE OPERATOR - 02/23/2024 7:02 PM TAMPING MACHINE OPERATOR Emergency [address] [address] Abdominal pain (Primary Dx); Elevated blood pressure reading Discharge Disposition: Discharge to home or self care from Last 3 Months Social History Tobacco Use Types Packs/Day Years Used Date Smoking Tobacco: Never Assessed Personal Safety Answer Date Recorded Have you ever been in or are you currently in a harmful physical or emotional relationship or is someone making you feel afraid or unsafe? Denies 02/23/2024 Comments No Sex and Gender Information Value Date Recorded Sex Assigned at Not on file Legal Sex Female 6:09 PM TAMPING MACHINE OPERATOR Gender Identity Not on file Sexual Orientation Not on file Last Filed Vital Signs Vital Sign Reading Time Taken Comments Blood Pressure 134/99 02/23/2024 6:30 PM TAMPING MACHINE OPERATOR Pulse 100 02/23/2024 6:30 PM TAMPING MACHINE OPERATOR Temperature 36.5 ??C (97.7 ??F) 02/23/2024 12:[address] Respiratory Rate 18 02/23/2024 2:56 PM TAMPING MACHINE OPERATOR Oxygen Saturation 100% 02/23/2024 6:30 PM TAMPING MACHINE OPERATOR Inhaled Oxygen Concentration - - Weight - - Height - - Body Mass Index - - Plan of Treatment Health Maintenance Due Date Last Done Comments Cervical Cancer Screening 1981 Depression Screening 1981 Hepatitis C Screening 1981 Regular Well Visit/Exam 18-64 08/28/1999 Covid-19 Vaccine (4 - 2023- season) 2023 03/29/2021, 03/24/2020, 02/25/2020 Influenza Vaccine (#1) 2023 2, 12/04/2020, 12/30/2019, Additional history exists Breast Cancer Screening-Mammogram 06/07/2024 06/08/2023, 06/08/2023, 12/31/2018 DTaP/Tdap/Td Vaccine (4 - Td or Tdap) 01/18/2034 01/19/2024, 08/26/2009, 03/12/2008 Varicella Vaccines Completed 10/12/1992, 12/02/1982 HPV Vaccines Aged Out No longer eligi ble based on patient's age to complete this topic Pneumococcal vaccine <65 Aged Out No longer eligible based on patient's age to complete this topic Procedures Procedure Name Priority Date/Time Associated Diagnosis Comments TROPONIN T HIGH-SENSITIVITY 4-HR Timed 02/23/2024 4:38 PM TAMPING MACHINE OPERATOR CT ABDOMEN PELVIS W CONTRAST ED 02/23/2024 3:07 PM TAMPING MACHINE OPERATOR POCT HCG, URINE Routine 02/23/2024 2:41 PM TAMPING MACHINE OPERATOR URINALYSIS AND REFLEX TO MICROSCOPIC AND CULTURE STAT 02/23/2024 2:16 PM TAMPING MACHINE OPERATOR EGFR STAT 02/23/2024 12:44 PM TAMPING MACHINE OPERATOR DIFFERENTIAL AUTO STAT 02/23/2024 12: 44 PM TAMPING MACHINE OPERATOR TROPONIN T HIGH-SENSITIVITY SERIES (BASELINE, 2HR, 4HR, 6HR) STAT 02/23/2024 12:44 PM TAMPING MACHINE OPERATOR LIPASE STAT 02/23/2024 12:44 PM TAMPING MACHINE OPERATOR COMPREHENSIVE METABOLIC PANEL STAT 02/23/2024 12:44 PM TAMPING MACHINE OPERATOR CBC WITH AUTO DIFFERENTIAL STAT 02/23/2024 12:44 PM TAMPING MACHINE OPERATOR ECG 12-LEAD STAT 02/23/2024 12:38 PM TAMPING MACHINE OPERATOR from Last 3 Months Results * Troponin T high-sensitivity 4-hour (02/23/2024 4:38 PM TAMPING MACHINE OPERATOR) Trop T hs <6 <=14 ng/L Comment: Interpretive Data For further hscTnT resources including the diagnostic algorithm and an aid in interpretation, copy and paste this link: https://nrl.testcatalog.org/show/hsTrop Current Interpretive Data last revised 2020. Trop T hs delta 0 ng/L MADELAINE JENKINS Trop T hs interp Insignificant MADELAINE Blood 02/23/2024 4:38 PM TAMPING MACHINE OPERATOR 02/23/2024 4:51 PM TAMPING MACHINE OPERATOR Yosvany Alvarez MD LAB BLOOD ORDERABLE S Final Result MADELAINE JENKINS [address] Department [place] [address] * CT Abdomen Pelvis W Contrast (02/23/2024 3:07 PM TAMPING MACHINE OPERATOR) Anatomical Region Laterality Modality Body N/A Computed Tomogra phy 02/23/2024 3:30 PM TAMPING MACHINE OPERATOR Narrative 02/23/2024 3:38 PM TAMPING MACHINE OPERATOR EXAM DESCRIPTION: ?? CT ABDOMEN PELVIS W CONTRAST REASON FOR STUDY: ?? Abdominal pain, acute, nonlocalized, RUQ pain, possible cholecystitis ?? Pt c/o epigastric abd pain, reports RUQ and RLQ abd pain. States had abd ultrasound on 02/18 that showed gallbladder sludge. Reports pain increases with movement. Endorsing nausea and no BM x 3 days ? TECHNIQUE: CT scan of the abdomen and pelvis performed with intravenous and ?? without ??oral contrast using helical scanning technique with dynamic intravenous contrast injection. Reconstructed coronal and sagittal MPR images reviewed. All images stored on PACS. Automated exposure control was used as a dose optimization technique for this examination. CONTRAST TYPE/DOSE: ?? 100mL of IOVERSOL 350 MG IODINE/ML INTRAVENOUS SYRINGE ?? injected via ?? intravenous COMPARISON: ?? None available FINDINGS: LOWER CHEST: ?? No significant pulmonary abnormalities. No effusion. LIVER: ?? Normal size. ??No identified cystic or solid masses. GALLBLADDER: ?? No stones identified. No wall thickening or inflammatory changes. BILE DUCTS: ?? No intrahepatic or extrahepatic ductal dilatation. SPLEEN: ?? Normal size. ??No focal lesions. PANCREAS: ?? No identified cystic or solid masses. No significant calcifications. No adjacent inflammation or peripancreatic fluid collections. Pancreatic duct not dilated. ?? ADRENALS: ?? Normal. KIDNEYS/URINARY TRACT: ?? No identified significant cystic or solid masses. No visualized stones. No hydronephrosis or hydroureter. Symmetric enhancement. ? Urinary bladder is unremarkable. GI: Small to moderate hiatal hernia. ?? No dilated bowel loops. No obvious wall thickening. ??Normal appendix. ??No significant diverticular disease. PERITONEUM: ?? No ascites or free air. RETROPERITONEUM: ?? No mass or adenopathy. REPRODUCTIVE: ?? The uterus is present. ??No adnexal mass. ??Bilateral tubal ligation clips. VASCULATURE: ?? No abdominal aortic aneurysm. MUSCULOSKELETAL: ?? No significant abnormality. OTHER: ?? No other abnormality. IMPRESSION: No acute findings identified to suggest etiology of the patient's symptoms. Small to moderate hiatal hernia. THIS IS AN ELECTRONICALLY VERIFIED FINAL REPORT 02/23/2024 3:38 PM - Electronically signed by ??Mark Cardona: ??02/23/2024 3:38 PM T: Report ID: [id number] Reading Location: ??[id number] Procedure Note Mark Ballesteros MD - 02/23/2024 EXAM DESCRIPTION: CT ABDOMEN PELVIS W CONTRAST REASON FOR STUDY: Abdominal pain, acute, nonlocalized, RUQ pain,possible cholecystitis Pt c/o epigastric abd pain, reports RUQ and RLQ abd pain. States had abd ultrasound on 02/18 that showed gallbladder sludge. Reports pain increases with movement. Endorsing nausea and no BM x 3 days TECHNIQUE: CT scan of the abdomen and pelvis performed with intravenousand without oral contrast using helical scanning technique with dynamic intravenous contrast injection. Reconstructed coronal and sagittal MPRimages reviewed. All images stored on PACS. Automated exposure control was usedas a dose optimization technique for this examination. CONTRAST TYPE/DOSE: 100mL of IOVERSOL 350 MG IODINE/ML INTRAVENOUSSYRINGE injected via intravenous COMPARISON: None available FINDINGS: LOWER CHEST: No significant pulmonary abnormalities. Noeffusion. LIVER: Normal size. No identified cystic or solid masses. GALLBLADDER: No stones identified. No wall thickening or inflammatory changes. BILE DUCTS: No intrahepatic or extrahepatic ductal dilatation. SPLEEN: Normal size. No focal lesions. PANCREAS: No identified cystic or solid masses. No significant calcifications. No adjacent inflammation or peripancreatic fluidcollections. Pancreatic duct not dilated. ADRENALS: Normal. KIDNEYS/URINARY TRACT: No identified significant cystic or solid masses.No visualized stones. No hydronephrosis or hydroureter. Symmetricenhancement. Urinary bladder is unremarkable. GI: Small to moderate hiatal hernia. No dilated bowel loops. No obviouswall thickening. Normal appendix. No significant diverticular disease. PERITONEUM: No ascites or free air. RETROPERITONEUM: No mass or adenopathy. REPRODUCTIVE: The uterus is present. No adnexal mass. Bilateral tubal ligation clips. VASCULATURE: No abdominal aortic aneurysm. MUSCULOSKELETAL: No significant abnormality. OTHER: No other abnormality. IMPRESSION: No acute findings identified to suggest etiology of the patient'ssymptoms. Small to moderate hiatal hernia. THIS IS AN ELECTRONICALLY VERIFIED FINAL REPORT 02/23/2024 3:38 PM - Electronically signed by Mark CAPONE T: Report ID: [id number] Reading Location: [id number] Kesha [facility] CT PROCEDURES Final Result * POCT hCG, urine (02/23/2024 2:41 PM TAMPING MACHINE OPERATOR) HCG, ur, POC Negative Negative Lot Number [id number] QC Backgroud Clear Acceptable QC Control Line Acceptable Urine 02/23/2024 2:41 PM TAMPING MACHINE OPERATOR us Yosvany Alvarez MD POINT OF CARE TEST ORDERABLES Final Result * Urinalysis reflex to microscopic and culture Urine (02/23/2024 2:16 PM TAMPING MACHINE OPERATOR) Color, ur Straw Yellow Clarity, ur Clear Clear [facility] Specific gravity, ur 1.003 1.003 - 1.030 [facility] pH, urine 5.5 [facility] Comment: Interpretive Data ? Urine pH is affected by diet, medications, systemic acid-base disturbances, and renal tubular function. ??pH may affect urinary stone formation. ??For example, urine pH below 6.0 may help reduce the tendency for calcium phosphate stones and pH greater than 6.0 may reduce the tendency for uric acid stone formation. Source: [facility] Current Interpretive Data was last revised on 2017 Protein, ur ql Negative Negative [facility] Glucose, ur ql Negative Negative [facility] Ketones, ur Trace Negative [facility] Bilirubin, ur Negative Negative [facility] Blood, ur Negative Negative [facility] Urobilinogen, ur <2.0 <2.0 mg/dL [facility] Nitrite, ur Negative Negative [facility] Leukocyte esterase, ur Negative Negative [facility] UA reflex comment Reflex conditions for microscopic UA and culture not met. [facility] Urine 02/23/2024 2:16 PM TAMPING MACHINE OPERATOR 02/23/2024 2:19 PM TAMPING MACHINE OPERATOR Hector Johnson MD LAB MICROBIOLOGY - GENERAL ORDERABLES Final Result [facility] [address] Department [place] [address] * Troponin T high-sensitivity series (baseline, 2hr, 4hr, 6hr) (02/23/2024 12:44 PM TAMPING MACHINE OPERATOR) Trop T hs <6 <=14 ng/L Comment: Interpretive Data For further hscTnT resources including the diagnostic algorithm and an aid in interpretation, copy and paste this link: https://nrl.testcatalog.org/show/hsTrop Current Interpretive Data last revised 2020. Blood 02/23/2024 12:4 4 PM TAMPING MACHINE OPERATOR 02/23/2024 1:02 PM TAMPING MACHINE OPERATOR us Yosvany Alvarez MD LAB BLOOD ORDERABLE S Final Result Performing Organization Address City/State/ZIP Co ok Phone Number [facility] [address] Department [place] [address] * eGFR (02/23/2024 12:44 PM TAMPING MACHINE OPERATOR) eGFR >90 >=60 mL/min/1. 73 m2 Comment: Interpretive Data Reference Interval Normal ?>/= 90 mL/min/1.73m2 Mildly decreased* ? 60 - 89 mL/min/1.73m2 Mildly to moderately decreased ?45 - 59 mL/min/1.73m2 Moderately to severely decreased ??30 - 44 mL/min/1.73m2 Severely decreased ?15 - 29 mL/min/1.73m2 Kidney Failure ?< 15 ??mL/min/1.73m2 *Relative to young adult level Estimated glomerular filtration rate is determined by the 2020 CKD-EPI equation recommended by the National Kidney Foundation (A Unifying Approach to GFR Estimation: Recommendations of the NKF-ASK Task Force on Reassessing the Inclusion of Race in Diagnosing Kidney Disease, JASN 202). The CKD-EPI equation should not be used for patients with unstable renal function and has not been validated in children and those over 70. Current interpretive data was last reviewed 2020. Blood 02/23/2024 12:4 4 PM TAMPING MACHINE OPERATOR 02/23/2024 1:02 PM TAMPING MACHINE OPERATOR us Yosvany Alvarez MD LAB BLOOD ORDERABLE S Final Result [facility]AINE [address] Department [place] [address] * Differential, auto (02/23/2024 12:44 PM TAMPING MACHINE OPERATOR) Neutrophil abs 4.5 1.5 - 6.5 K/cumm Imm gran abs 0.0 0.0 - 0.1 K/cumm [facility] Lymphocyte abs 2.3 0.8 - 3.3 K/cumm [facility] Monocyte abs 0.4 0.2 - 0.8 K/cumm [facility] Eosinophil abs 0.1 0.0 - 0.5 K/cumm [facility] Basophil abs 0.0 0.0 - 0.1 K/cumm [facility] Neutrophil pct 62.2 % [facility] Comment: Interpretive Data Percent cell count reference ranges are not reported, since discordance with absolute values may lead to misinterpretation of CBC data. Current Interpretive Data was last revised on 2017. Imm gran pct 0.1 % [facility] Comment: Interpretive Data Percent cell count reference ranges are not reported, since discordance with absolute values may lead to misinterpretation of CBC data. Current Interpretive Data was last revised on 2017. Lymphocyte pct 31.0 % [facility] Comment: Interpretive Data Percent cell count reference ranges are not reported, since discordance with absolute values may lead to misinterpretation of CBC data. Current Interpretive Data was last revised on 2017. Monocyte pct 5.6 % [facility] Comment: Interpretive Data Percent cell count reference ranges are not reported, since discordance with absolute values may lead to misinterpretation of CBC data. Current Interpretive Data was last revised on 2017. Eosinophil pct 0.8 % [facility] Comment: Interpretive Data Percent cell count reference ranges are not reported, since discordance with absolute values may lead to misinterpretation of CBC data. Current Interpretive Data was last revised on 2017. Basophil pct 0.3 % [facility] Comment: Interpretive Data Percent cell count reference ranges are not reported, since discordance with absolute values may lead to misinterpretation of CBC data. Current Interpretive Data was last revised on 2017. Blood 02/23/2024 12:4 4 PM TAMPING MACHINE OPERATOR 02/23/2024 1:02 PM TAMPING MACHINE OPERATOR Yosvany Alvarez MD LAB BLOOD ORDERABLE S Final Result Performing Organization Address City/[facility] Co de Phone Number MADELAINE [address] [place] [employer] [place] [address] * (ABNORMAL) CBC with auto differential (02/23/2024 12:44 PM TAMPING MACHINE OPERATOR) WBC 7.3 3.8 - 9.9 K/cumm Hgb 16.0(H) 11.9 - 15.5 g/dL [facility] Hct 48.7(H) 35.6 - 45.5 % [facility] Plt 280 150 - 400 K/cumm [facility] MPV 10.7 9.1 - 12.3 fL [facility] RBC 5.53(H) 3.90 - 5.20 M/cumm [facility] MCV 88.1 81.3 - 96.4 fL [facility] MCH 28.9 27.1 - 33.3 pg [facility] MCHC 32.9 32.3 - 35.7 g/dL [facility] RDW CV 13.5 11.1 - 14.9 % [facility] RDW SD 43.6 35.7 - 48.1 fL [facility] NRBC abs 0.00 0.00 - 0.01 K/cumm [facility] Blood (Blood, Venous) 02/23/2024 12:44 PM TAMPING MACHINE OPERATOR 02/23/2024 1:02 PM TAMPING MACHINE OPERATOR Yosvany Alvarez MD LAB BLOOD ORDERABLE S Final Result Performing Organization Address City/[facility]/ZIP Co de Phone Number MADELAINE [address] [employer] [place] [address] * Lipase (02/23/2024 12:44 PM TAMPING MACHINE OPERATOR) Pathologist [facility] Lipase 41 10 - 99 Units/L Blood (Blood, Venous) 02/23/2024 12:44 PM TAMPING MACHINE OPERATOR 02/23/2024 1:02 PM TAMPING MACHINE OPERATOR us Yosvany Alvarez MD LAB BLOOD ORDERABLE S Final Result MADELAINE [address] [place] [address] * (ABNORMAL) Comprehensive metabolic panel (02/23/2024 12:44 PM TAMPING MACHINE OPERATOR) Sodium 134(L) 135 - 145 mmol/L Potassium, pl 3.8 3.3 - 4.9 mmol/L [facility] Chloride 97 97 - 110 mmol/L [facility] CO2 25 22 - 32 mmol/L [facility] Anion gap 12 2 - 15 mmol/L [facility] BUN 7 6 - 25 mg/dL [facility] Creatinine 0.68 0.60 - 1.10 mg/dL [facility] Glucose 79 70 - 199 mg/dL [facility] Comment: Interpretive Data Fasting glucose >/= 126 mg/dl is diagnostic for diabetes. ?? Fasting is defined as no caloric intake for at least 8 hours. Fasting glucose between 100 mg/dl to 125 mg/dl is diagnostic of prediabetes. In a patient with classic symptoms of hyperglycemia or hyperglycemic crisis, a random glucose >/= 200 mg/dl is diagnostic for diabetes. In the absence of unequivocal hyperglycemia, results should be confirmed by repeat testing. The classification and Diagnosis of Diabetes Diabetes Care 2021; 46: S19-S40. Current interpretive data was last revised 2022. Calcium 9.4 8.5 - 10.3 mg/dL [facility] Bilirubin, total 0.3 0.1 - 1.2 mg/dL [facility] Protein, pl 7.2 6.5 - 8.5 g/dL [facility] Albumin 4.4 3.5 - 5.0 g/dL [facility] Alk phos 69 40 - 130 Units/L [facility] ALT 5(L) 7 - 45 Units/L [facility] AST 14 10 - 45 Units/L [facility] Blood 02/23/2024 12:4 4 PM TAMPING MACHINE OPERATOR 02/23/2024 1:02 PM TAMPING MACHINE OPERATOR us Yosvany Alvarez MD LAB BLOOD ORDERABLE S Final Result M[facility]ELAINE [address] [place] [address] * ECG 12 lead (02/23/2024 12:38 PM TAMPING MACHINE OPERATOR) Ventricular Rate EKG/Min 120 BPM [facility] Atrial Rate 120 BPM [facility] [place]-Interval (MSEC) 136 ms [facility] QRS-Interval (MSEC) 70 ms [facility] QT-Interval (MSEC) 318 ms [facility] QTc 449 ms [facility] P [place] 41 degrees [facility] R [place] -21 degrees [facility] T [place] 50 degrees [facility] Diagnosis Sinus tachycardia Low voltage QRS Inferior infarct , age undetermined Cannot rule out Anterior infarct , age undetermined Abnormal ECG No previous ECGs available Confirmed by CORTEZ FERNANDEZ M.D. ([id number]) on 02/23/2024 11:40:48 PM [facility] 02/23/2024 12:3 8 PM TAMPING MACHINE OPERATOR 02/23/2024 11:40 PM TAMPING MACHINE OPERATOR us Yosvany Alvarez MD ECG ORDERABLES Fin al Result Performing Organization Address City/[facility] Co de Phone Number [facility] from Last 3 Months Insurance [facility] Care Teams Geoscience Specialist Relationship Specialty Start Date End Date Medardo Ellington MD [address] [place] [address] PCP - General Family Practice 03/17/22
--- OUTSIDE RECORDS SUMMARY | 2024-03-28 14:12 | XMS_ITS | Referral Summary ---
Author Organization [facility] Address [address] [place] [phone] Care Team Providers Care Linen Grader Name Role Phone Medardo Ellington MD Primary Care Provider [phone] Encounters Date Type Department Care Team Description 02/23/2024 4:45 PM TRAIN DRIVER - 02/23/2024 7:02 PM TRAIN DRIVER Emergency [address] [address] Abdominal pain (Primary Dx); Elevated blood pressure reading Discharge Disposition: Discharge to home or self care from Last 3 Months Allergies No known active allergies Medications traMADoL (ULTRAM) 50 mg tablet Take 1 tablet (50 mg total) by mouth every 6 (six) hours 10 tablet 02/23/2024 Active Social History Tobacco Use Types Packs/Day Years [...] on file Legal Sex Female 6:09 PM TRAIN DRIVER Gender Identity Not on file Sexual Orientation Not on file Last Filed Vital Signs Vital Sign Reading Time Taken Comments Blood Pressure 134/99 02/23/2024 6:30 PM TRAIN DRIVER Pulse 100 02/23/2024 6:30 PM TRAIN DRIVER Temperature 36.5 ??C (97.7 ??F) 02/23/2024 12:[address] Respiratory Rate 18 02/23/2024 2:56 PM TRAIN DRIVER Oxygen Saturation 100% 02/23/2024 6:30 PM TRAIN DRIVER Inhaled Oxygen Concentration - - Weight - - Height - - Body Mass Index - - Plan of Treatment Not on file Procedures Procedure Name Priority Date/Time Associated Diagnosis Comments TROPONIN T HIGH-SENSITIVITY 4-HR Timed 02/23/2024 4:[address] ABDOMEN PELVIS W CONTRAST ED 02/23/2024 3:07 PM TRAIN DRIVER POCT HCG, URINE Routine 02/23/2024 2:41 PM TRAIN DRIVER URINALYSIS AND REFLEX TO MICROSCOPIC AND CULTURE STAT 02/23/2024 2:16 PM TRAIN DRIVER EGFR STAT 02/23/2024 12:44 PM TRAIN DRIVER DIFFERENTIAL AUTO STAT 02/23/2024 12: 44 PM TRAIN DRIVER TROPONIN T HIGH-SENSITIVITY SERIES (BASELINE, 2HR, 4HR, 6HR) STAT 02/23/2024 12:44 PM TRAIN DRIVER LIPASE STAT 02/23/2024 12:44 PM TRAIN DRIVER COMPREHENSIVE METABOLIC PANEL STAT 02/23/2024 12:44 PM TRAIN DRIVER CBC WITH AUTO DIFFERENTIAL STAT 02/23/2024 12:44 PM TRAIN DRIVER ECG 12-LEAD STAT 02/23/2024 12:38 PM TRAIN DRIVER from Last 3 Months Results * Troponin T high-sensitivity 4-hour (02/23/2024 4:38 PM TRAIN DRIVER) Trop T hs <6 <=14 ng/L Comment: Interpretive Data For further hscTnT resources including the diagnostic algorithm and an aid in interpretation, copy and paste this link: https://nrl.testcatalog.org/show/hsTrop Current Interpretive Data last revised 2020. Trop T hs delta 0 ng/L MADELAINE JENKINS Trop T hs interp Insignificant MADELAINE JENKINS Blood 02/23/2024 4:38 PM TRAIN DRIVER 02/23/2024 4:51 PM TRAIN DRIVER us Yosvany Alvarez MD LAB BLOOD ORDERABLE S Final Result MADELAINE [address] [facility] Department [place] [address] * CT Abdomen Pelvis W Contrast (02/23/2024 3:07 PM TRAIN DRIVER) Anatomical Region Laterality Modality Body N/A Computed Tomogra phy 02/23/2024 3:30 PM TRAIN DRIVER Narrative 02/23/2024 3:38 PM TRAIN DRIVER EXAM DESCRIPTION: ?? CT ABDOMEN PELVIS W [...] Cardona: ??02/23/2024 3:38 PM T: Report ID: [id number] Reading Location: ??[id number] Procedure Note Mark Ballesteros MD - 02/23/2024 [...] signed by Mark CAPONE T: Report ID: [id number] Reading Location: [place] [address] PROCEDURES Final Result * POCT hCG, urine (02/23/2024 2:41 PM TRAIN DRIVER) HCG, ur, POC Negative Negative Lot Number [id number] QC Backgroud Clear Acceptable QC Control Line Acceptable Urine 02/23/2024 2:41 PM TRAIN DRIVER Yosvany Alvarez MD POINT OF CARE TEST ORDERABLES Final Result * Urinalysis reflex to microscopic and culture Urine (02/23/2024 2:16 PM TRAIN DRIVER) Color, ur Straw Yellow Clarity, ur Clear Clear MADELAINE Specific gravity, ur 1.003 1.003 - 1.030 MADELAINE pH, urine 5.5 MADELAINE Comment: Interpretive Data ? Urine pH is affected by diet, medications, systemic acid-base disturbances, and renal tubular function. ??pH may affect urinary stone formation. ??For example, urine pH below 6.0 may help reduce the tendency for calcium phosphate stones and pH greater than 6.0 may reduce the tendency for uric acid stone formation. Source: [employer] Current Interpretive Data was last revised on 2017 Protein, ur ql Negative Negative MADELAINE Glucose, ur ql Negative Negative [facility] Ketones, ur Trace Negative [facility] Bilirubin, ur Negative Negative [facility] Blood, ur Negative Negative [facility] Urobilinogen, ur <2.0 <2.0 mg/dL [facility] Nitrite, ur Negative Negative [facility] Leukocyte esterase, ur Negative Negative [facility] UA reflex comment Reflex conditions for microscopic UA and culture not met. [facility] Urine 02/23/2024 2:16 PM TRAIN DRIVER 02/23/2024 2:19 PM TRAIN DRIVER us Hector Johnson MD LAB MICROBIOLOGY - GENERAL ORDERABLES Final Result Performing Organization Address [facility] de Phone Number [address] [address] * Troponin T high-sensitivity series (baseline, 2hr, 4hr, 6hr) (02/23/2024 12:44 PM TRAIN DRIVER) Pathologist [facility] Trop T hs <6 <=14 ng/L Comment: Interpretive Data For further hscTnT resources including the diagnostic algorithm and an aid in interpretation, copy and paste this link: https://nrl.testcatalog.org/show/hsTrop Current Interpretive Data last revised 2020. Blood 02/23/2024 12:4 4 PM TRAIN DRIVER 02/23/2024 1:02 PM TRAIN DRIVER us Yosvany Alvarez MD LAB BLOOD ORDERABLE S Final Result Performing Organization Address [facility] de Phone Number [address] [place] [place] [address] * eGFR (02/23/2024 12:44 PM TRAIN DRIVER) [facility] eGFR >90 >=60 mL/min/1. 73 m2 Comment: [...] reviewed 2020. Blood 02/23/2024 12:4 4 PM TRAIN DRIVER 02/23/2024 1:02 PM TRAIN DRIVER us Yosvany Alvarez MD LAB BLOOD ORDERABLE S Final Result MADELAINE [address] [facility] Department [place] [address] * Differential, auto (02/23/2024 12:44 PM TRAIN DRIVER) Pathologist [facility] Neutrophil abs 4.5 1.5 - 6.5 K/cumm Imm gran abs 0.0 0.0 - 0.1 K/cumm [facility] Lymphocyte abs 2.3 0.8 - 3.3 K/cumm [facility] Monocyte abs 0.4 0.2 - 0.8 K/cumm [facility] Eosinophil abs 0.1 0.0 - 0.5 K/cumm [facility] Basophil abs 0.0 0.0 - 0.1 K/cumm [facility] Neutrophil pct 62.2 % [facility] Comment: Interpretive Data Percent cell count reference ranges are not reported, since discordance with absolute values may lead to misinterpretation of CBC data. Current Interpretive Data was last revised on 2017. Imm gran pct 0.1 % [facility] Comment: Interpretive Data Percent cell count reference ranges are not reported, since discordance with absolute values may lead to misinterpretation of CBC data. Current Interpretive Data was last revised on 2017. Lymphocyte pct 31.0 % [facility] Comment: Interpretive Data Percent cell count reference ranges are not reported, since discordance with absolute values may lead to misinterpretation of CBC data. Current Interpretive Data was last revised on 2017. Monocyte pct 5.6 % [facility] Comment: Interpretive Data Percent cell count reference ranges are not reported, since discordance with absolute values may lead to misinterpretation of CBC data. Current Interpretive Data was last revised on 2017. Eosinophil pct 0.8 % [facility] Comment: Interpretive Data Percent cell count reference ranges are not reported, since discordance with absolute values may lead to misinterpretation of CBC data. Current Interpretive Data was last revised on 2017. Basophil pct 0.3 % [facility] Comment: Interpretive Data Percent cell count reference ranges are not reported, since discordance with absolute values may lead to misinterpretation of CBC data. Current Interpretive Data was last revised on 2017. Blood 02/23/2024 12:4 4 PM TRAIN DRIVER 02/23/2024 1:02 PM TRAIN DRIVER us Yosvany Alvarez MD LAB BLOOD ORDERABLE S Final Result [facility] [address] [facility] Department of Laboratories [place], [place] [id number] * (ABNORMAL) CBC with auto differential (02/23/2024 12:44 PM TRAIN DRIVER) WBC 7.3 3.8 - 9.9 K/cumm Hgb 16.0(H) 11.9 - 15.5 g/dL [facility] Hct 48.7(H) 35.6 - 45.5 % [facility] Plt 280 150 - 400 K/cumm [facility] MPV 10.7 9.1 - 12.3 fL [facility] RBC 5.53(H) 3.90 - 5.20 M/cumm [facility] MCV 88.1 81.3 - 96.4 fL [facility] MCH 28.9 27.1 - 33.3 pg [facility] MCHC 32.9 32.3 - 35.7 g/dL [facility] RDW CV 13.5 11.1 - 14.9 % [facility] RDW SD 43.6 35.7 - 48.1 fL [facility] NRBC abs 0.00 0.00 - 0.01 K/cumm [facility] Blood (Blood, Venous) 02/23/2024 12:44 PM TRAIN DRIVER 02/23/2024 1:02 PM TRAIN DRIVER Yosvany Alvarez MD LAB BLOOD ORDERABLE S Final Result Performing Organization Address [facility]/ZIP Co de Phone Number [address] [place] [address] * Lipase (02/23/2024 12:44 PM TRAIN DRIVER) [facility] Lipase 41 10 - 99 Units/L Blood (Blood, Venous) 02/23/2024 12:44 PM TRAIN DRIVER 02/23/2024 1:02 PM TRAIN DRIVER Yosvany Alvarez MD LAB BLOOD ORDERABLE S Final Result Performing Organization Address [facility] Co de Phone Number [address] [place] [place] [address] * (ABNORMAL) Comprehensive metabolic panel (02/23/2024 12:44 PM TRAIN DRIVER) [facility] Sodium 134(L) 135 - 145 mmol/L Potassium, pl 3.8 3.3 - 4.9 mmol/L [facility] Chloride 97 97 - 110 mmol/L [facility] CO2 25 22 - 32 mmol/L [facility] Anion gap 12 2 - 15 mmol/L [facility] BUN 7 6 - 25 mg/dL [facility] Creatinine 0.68 0.60 - 1.10 mg/dL [facility] Glucose 79 70 - 199 mg/dL [facility] Comment: Interpretive Data Fasting glucose >/= 126 [...] 2022. Calcium 9.4 8.5 - 10.3 mg/dL [facility] Bilirubin, total 0.3 0.1 - 1.2 mg/dL [facility] Protein, pl 7.2 6.5 - 8.5 g/dL [facility] Albumin 4.4 3.5 - 5.0 g/dL [facility] Alk phos 69 40 - 130 Units/L [facility] ALT 5(L) 7 - 45 Units/L [facility] AST 14 10 - 45 Units/L [facility] Blood 02/23/2024 12:4 4 PM TRAIN DRIVER 02/23/2024 1:02 PM TRAIN DRIVER us Yosvany Alvarez MD LAB BLOOD ORDERABLE S Final Result MADELAINE JENKINS [address] [facility] Department [place] [address] * ECG 12 lead (02/23/2024 12:38 PM TRAIN DRIVER) Pathologist [facility] Ventricular Rate EKG/Min 120 BPM [facility] Atrial Rate 120 BPM [facility] ME-Interval (MSEC) 136 ms [facility] QRS-Interval (MSEC) 70 ms [facility] QT-Interval (MSEC) 318 ms [facility] QTc 449 ms [facility] P [place] 41 degrees [facility] R [place] -21 degrees [facility] T [place] 50 degrees [facility] Diagnosis Sinus tachycardia Low voltage QRS Inferior infarct , age undetermined Cannot rule out Anterior infarct , age undetermined Abnormal ECG No previous ECGs available Confirmed by CORTEZ FERNANDEZ M.D. ([id number]) on 02/23/2024 11:40:48 PM [facility] 02/23/2024 12:3 8 PM TRAIN DRIVER 02/23/2024 11:40 PM TRAIN DRIVER us Yosvany Alvarez MD ECG ORDERABLES Fin al Result [facility] [place] from Last 3 Months Insurance [facility] Care Teams Linen Grader Relationship Specialty Start Date End Date Medardo Ellington MD [address] [place] [address] PCP - General Family Practice 03/17/22
--- OUTSIDE RECORDS SUMMARY | 2024-03-28 14:12 | XMS_ITS | Encounter Summary ---
Author Organization [facility] Address [address] [place] [address]. [place] [address] [place] [address] Care Team Providers Care Picker Box Operator Name Role Phone Weston Pemberton DO Primary Care Provider [phone] Medardo Ellington MD Primary Care Provider + Encounter Details Date Type Department Care Team (Late Contact Info) Description 09/29/2017 Abstract [facility] Conversion Md, Generic Conversion, Social [...] (Late Contact Info) Description 04/17/2024 11:00 AM DRYCLEANER Office Visit [address], [address] [place] [phone] Rebecca Berg MD [address] [place] [address] 06/25/2024 11:20 AM CDT Office Visit [address] [place] [phone] Peggy Urbina NP [address] [facility] [address] [place] [address] 07/02/2024 10:30 AM CDT Office Visit [facility] [address] [place] [address] Joe Herrera MD [address] [facility] [address] [place] [address] documented as of this encounter Visit Diagnoses Not on filedocumented in this encounter Additional Health Concerns Infection Onset Date Last Indicated Resolved Time COVID-19 Rule Out 11/11/2021 11/11/2021 11/11/2021 9:16 PM CDT documented as of this encounter Care Teams Picker Box Operator Relationship Specialty Start Date End Date Weston Pemberton DO PCP - General 08/03/11 08/23/18 Medardo Ellington MD [address] [place] [address] PCP - General FAMILY PRACTICE 08/24/18 documented as of this encounter
--- OUTSIDE RECORDS SUMMARY | 2024-03-28 14:12 | XMS_ITS | Encounter Summary ---
Author Organization [facility] Address [address] [place] [address]. [place] [address] [place] [address] Care Team Providers Care Brake Coupler Dinkey Name Role Phone Medardo Ellington MD Primary Care Provider + Encounter Details Date Type Department Care Team (Late st Contact Info) Description 01/12/2024 [employer] Message [address] [address] [facility] Provider results Social History Tobacco [...] st Contact Info) Description 04/17/2024 11:00 AM SOFTWARE PUBLISHER Office Visit [facility] [address] [place] [address] Rebecca Berg MD [address] [facility] [place] [address] 06/25/2024 11:20 AM CDT Office Visit [facility] Care - [facility] [address] [facility], [address] [place] [address] Peggy Urbina NP [address] [facility] [address] [place] [address] 07/02/2024 10:30 AM CDT [facility] [address] [place] [address] Joe Herrera MD 3 [facility] [address] [place] [address] documented as of this encounter Visit Diagnoses Not on filedocumented in this encounter Additional Health Concerns Assessment Noted Time PHQ-9 Depression Total Score: 0 04/15/19 22 2:24 PM SOFTWARE PUBLISHER documented as of this encounter Care Teams Brake Coupler Dinkey Relationship Specialty Start Date End Date Medardo Ellington MD [address] [place] [address] PCP - General FAMILY PRACTICE 08/24/18 documented as of this encounter
--- OUTSIDE RECORDS SUMMARY | 2024-03-28 14:12 | XMS_ITS | Patient Health Summary ---
Author Organization [facility] [employer] Address [address] [place] [address] Care Team Providers Care Die Baker Name Role Phone Unavailable Primary Care Provider Unavailabl e Note from [facility],non-owned Affiliates and Associated Physician Practices is amultiple site organization consisting of ambulatory clinics and hospital sitesin [place], [place], [place] and [place]. This disclosure is being madepursuant to the Care Everywhere program and may not contain all information available regarding this patient. Last updated 17.[facility] [employer] Social History Tobacco Use Types Packs/Day Years Used Date Smoking Tobacco: Never Assessed Sex and Gender Information Value Date Recorded Sex Assigned at Not on file Gender Identity Not on file Sexual Orientation Not on file
[2024-03-28 21:17] LABS: Alanine Aminotransferase 19 U/L (6-35); Alkaline Phosphatase 73 U/L (38-126); Amylase 84 U/L (30-110); Aspartate Amino Transferase 21 U/L (14-36); Bilirubin,Total 0.4 mg/dL (0.2-1.3); Lipase 227 U/L (23-300)
[2024-03-28 21:26] LABS: Albumin Level 3.8 g/dL (3.5-5.1)
== END 2024-03-28 13:25 | disposition home or self-care (01) ==
LOC: ANHSURGERY 13:30
PROVIDERS: PCP Family Medicine; Visit Provider Surgery
DX: K81.1 Chronic cholecystitis (principal)
CPT/HCPCS: 36415; 80076; 82150; 83690

== ENCOUNTER 2024-04-03 02:32 | Day surgery (SDC) | payer OTHER, SELFPAY ==
--- NOTE | 2024-03-21 14:16 | SUR.PREOP ---
Addendum entered by Hemalatha Mirza RN 03/21/24 14:47: Report to the Outpatient Waiting Room, entrance under the green pavilion located off [address], at time 1000 on date 04/03/24. Planned Procedure Time: 1200.? Original Note: Report to the Outpatient Waiting Room, entrance under the green pavilion located off [address], at time on date . Planned Procedure Time: .? Time changes happen often and if your time is changed the preop area will call you the afternoon before. - You and your visitor will be asked to self-screen and do not enter if you have any COVID symptoms. Please call surgeon if you need to reschedule. - A mask is optional within the hospital at this time. Patients may have clear liquids (water, carbonated beverages, clear teas, apple juice) until 3 hours prior to surgery with a maximum of 20 ounces. - NO CLEAR LIQUIDS AFTER 0900 - No food from midnight until time of surgery and no smoking. This includes no chewing gum, candy or mints. - Infants may have breast milk until 4 hours before surgery, infant formula 6 hours prior to surgery. - Children will be allowed to drink immediately following surgery.? If applicable, please bring a bottle or sippy cup to assist with drinking. Juice, water, soda, and popsicles are readily available.? For infants on formula, please bring formula the day of surgery.? Pacifiers are allowed. Take only the following medications with a SIP of water on the morning of surgery: CLONAZEPAM, LINACLOTIDE, ZOFRAN, RIZATRIPTAN, UBROGEPANT DO NOT STOP ANY OF YOUR OTHER PRESCRIPTION MEDICATIONS PRIOR TO SURGERY EXCEPT THE FOLLOWING: Medications to discontinue per physician INSTRUCTED PATIENT TO CALL DR OTERO'S OFFICE AND ASK IF SHE CAN CONTINUE CELECOXIB Date to take last dose Please no make-up, nail monegasque, hairspray, perfume, deodorant, or body powder the day of surgery.? No jewelry (including any body piercings) or valuables the day of surgery, leave them at home.? Please take a shower or bath the night before, or the morning of, surgery with an antibacterial soap.? Wear comfortable, loose fitting clothing.? Children are encouraged to wear pajamas. - Jewelry must be removed prior to entering the operating room.? Rings and piercings that are not removed may be cut off. - The hospital will not accept responsibility for valuables.? - Please leave all valuables, including medications, at home the day of surgery. If you are going home after surgery, a licensed intermodal owner operator truck driver must drive you home.? - NO public transportation without another adult if you receive anesthesia. - We recommend that an adult stay with you for 24 hours following discharge. - We also recommend that you do not drive, make important decision, drink alcoholic beverages, or take any drugs that were not prescribed by your health care provider for at least 24 hours after your discharge time. For Pediatric surgeries, we recommend two adults accompany the child home. Follow any additional instructions given to you from your surgeon. Telephone instructions given to ELIU CORRAL and asked if any additional questions and then verbalized understanding. Patient advised to call surgeon office or pre surgery nurse liaison [phone] if any additional questions.
[2024-03-21 14:33] VITALS: BMI 30.2
[2024-04-03] VITALS (11 sets, daily range): BP systolic 122–144; BP diastolic 70–117; PULSE 74–102; RESP 12–20; TEMP 36.1–36.2; O2SAT 19–100; BMI 29.4
--- OUTSIDE RECORDS SUMMARY | 2024-04-03 02:36 | XMS_ITS | Clinical Summary ---
Author Organization [facility] Address [address] [place] [phone] Care Team Providers Care Coating Mixer Tender Name Role Phone Medardo Ellington MD Primary Care Provider [phone] Allergies No known active allergies Medications traMADoL (ULTRAM) 50 mg tablet Take 1 tablet (50 mg total) by mouth every 6 (six) hours 10 tablet 02/23/2024 Active Encounters Date Type Department Care Team Description 02/23/2024 4:45 PM LENS BLOCKER - 02/23/2024 7:02 PM LENS BLOCKER Emergency [address] [address] Abdominal pain (Primary Dx); Elevated [...] on file Legal Sex Female 6:09 PM LENS BLOCKER Gender Identity Not on file Sexual Orientation Not on file Last Filed Vital Signs Vital Sign Reading Time Taken Comments Blood Pressure 134/99 02/23/2024 6:30 PM LENS BLOCKER Pulse 100 02/23/2024 6:30 PM LENS BLOCKER Temperature 36.5 ??C (97.7 ??F) 02/23/2024 12:[address] Respiratory Rate 18 02/23/2024 2:56 PM LENS BLOCKER Oxygen Saturation 100% 02/23/2024 6:30 PM LENS BLOCKER Inhaled Oxygen Concentration - - Weight - [...] T HIGH-SENSITIVITY 4-HR Timed 02/23/2024 4:[address] ABDOMEN PELVIS W CONTRAST ED 02/23/2024 3:07 PM LENS BLOCKER POCT HCG, URINE Routine 02/23/2024 2:41 PM LENS BLOCKER URINALYSIS AND REFLEX TO MICROSCOPIC AND CULTURE STAT 02/23/2024 2:16 PM LENS BLOCKER EGFR STAT 02/23/2024 12:44 PM LENS BLOCKER DIFFERENTIAL AUTO STAT 02/23/2024 12: 44 PM LENS BLOCKER TROPONIN T HIGH-SENSITIVITY SERIES (BASELINE, 2HR, 4HR, 6HR) STAT 02/23/2024 12:44 PM LENS BLOCKER LIPASE STAT 02/23/2024 12:44 PM LENS BLOCKER COMPREHENSIVE METABOLIC PANEL STAT 02/23/2024 12:44 PM LENS BLOCKER CBC WITH AUTO DIFFERENTIAL STAT 02/23/2024 12:44 PM LENS BLOCKER ECG 12-LEAD STAT 02/23/2024 12:38 PM LENS BLOCKER from Last 3 Months Results * Troponin T high-sensitivity 4-hour (02/23/2024 4:38 PM LENS BLOCKER) Trop T hs <6 <=14 ng/L Comment: Interpretive Data For further hscTnT resources including the diagnostic algorithm and an aid in interpretation, copy and paste this link: https://nrl.testcatalog.org/show/hsTrop Current Interpretive Data last revised 2020. Trop T hs delta 0 ng/L MADELAINE JENKINS Trop T hs interp Insignificant MADELAINE Blood 02/23/2024 4:38 PM LENS BLOCKER 02/23/2024 4:51 PM LENS BLOCKER Yosvany Alvarez MD LAB BLOOD ORDERABLE S Final Result MADELAINE JENKINS [address] [facility] Department [place] [address] * CT Abdomen Pelvis W Contrast (02/23/2024 3:07 PM LENS BLOCKER) Anatomical Region Laterality Modality Body N/A Computed Tomogra phy 02/23/2024 3:30 PM LENS BLOCKER Narrative 02/23/2024 3:38 PM LENS BLOCKER EXAM DESCRIPTION: ?? CT ABDOMEN PELVIS W [...] Cardona: ??02/23/2024 3:38 PM T: Report ID: [id number] Reading Location: ??[id number] Procedure Note Mark Ballesteros MD - 02/23/2024 [...] signed by Mark CAPONE T: Report ID: [id number] Reading Location: [id number] Kesha FIGUEROA [facility] CT PROCEDURES Final Result * POCT hCG, urine (02/23/2024 2:41 PM LENS BLOCKER) HCG, ur, POC Negative Negative Lot Number [id number] QC Backgroud Clear Acceptable QC Control Line Acceptable Urine 02/23/2024 2:41 PM LENS BLOCKER us Yosvany Alvarez MD POINT OF CARE TEST ORDERABLES Final Result * Urinalysis reflex to microscopic and culture Urine (02/23/2024 2:16 PM LENS BLOCKER) Color, ur Straw Yellow Clarity, ur Clear Clear [facility] Specific gravity, ur 1.003 1.003 - 1.030 [facility] pH, urine 5.5 [facility] Comment: Interpretive Data ? Urine pH is affected by diet, medications, systemic acid-base disturbances, and renal tubular function. ??pH may affect urinary stone formation. ??For example, urine pH below 6.0 may help reduce the tendency for calcium phosphate stones and pH greater than 6.0 may reduce the tendency for uric acid stone formation. Source: [facility] Current Interpretive Data was last revised on 2017 Protein, ur ql Negative Negative [facility] Glucose, ur ql Negative Negative [facility] Ketones, ur Trace Negative [facility] Bilirubin, ur Negative Negative [facility] Blood, ur Negative Negative [facility] Urobilinogen, ur <2.0 <2.0 mg/dL [facility] Nitrite, ur Negative Negative [facility] Leukocyte esterase, ur Negative Negative [facility] UA reflex comment Reflex conditions for microscopic UA and culture not met. [facility] Urine 02/23/2024 2:16 PM LENS BLOCKER 02/23/2024 2:19 PM LENS BLOCKER Hector Johnson MD LAB MICROBIOLOGY - GENERAL ORDERABLES Final Result [facility] [address] [facility] Department [place] [address] * Troponin T high-sensitivity series (baseline, 2hr, 4hr, 6hr) (02/23/2024 12:44 PM LENS BLOCKER) Trop T hs <6 <=14 ng/L Comment: Interpretive Data For further hscTnT resources including the diagnostic algorithm and an aid in interpretation, copy and paste this link: https://nrl.testcatalog.org/show/hsTrop Current Interpretive Data last revised 2020. Blood 02/23/2024 12:4 4 PM LENS BLOCKER 02/23/2024 1:02 PM LENS BLOCKER us Yosvany Alvarez MD LAB BLOOD ORDERABLE S Final Result Performing Organization Address City/State/ZIP Co ga Phone Number [facility] [address] [facility] Department [place] [address] * eGFR (02/23/2024 12:44 PM LENS BLOCKER) eGFR >90 >=60 mL/min/1. 73 m2 Comment: [...] reviewed 2020. Blood 02/23/2024 12:4 4 PM LENS BLOCKER 02/23/2024 1:02 PM LENS BLOCKER us Yosvany Alvarez MD LAB BLOOD ORDERABLE S Final Result MADELAINE [address] [facility] [place] [address] * Differential, auto (02/23/2024 12:44 PM LENS BLOCKER) Neutrophil abs 4.5 1.5 - 6.5 K/cumm Imm gran abs 0.0 0.0 - 0.1 K/cumm [facility] Lymphocyte abs 2.3 0.8 - 3.3 K/cumm [facility] Monocyte abs 0.4 0.2 - 0.8 K/cumm [facility] Eosinophil abs 0.1 0.0 - 0.5 K/cumm [facility] Basophil abs 0.0 0.0 - 0.1 K/cumm [facility] Neutrophil pct 62.2 % [facility] Comment: Interpretive Data Percent cell count reference ranges are not reported, since discordance with absolute values may lead to misinterpretation of CBC data. Current Interpretive Data was last revised on 2017. Imm gran pct 0.1 % [facility] Comment: Interpretive Data Percent cell count reference ranges are not reported, since discordance with absolute values may lead to misinterpretation of CBC data. Current Interpretive Data was last revised on 2017. Lymphocyte pct 31.0 % [facility] Comment: Interpretive Data Percent cell count reference ranges are not reported, since discordance with absolute values may lead to misinterpretation of CBC data. Current Interpretive Data was last revised on 2017. Monocyte pct 5.6 % [facility] Comment: Interpretive Data Percent cell count reference ranges are not reported, since discordance with absolute values may lead to misinterpretation of CBC data. Current Interpretive Data was last revised on 2017. Eosinophil pct 0.8 % [facility] Comment: Interpretive Data Percent cell count reference ranges are not reported, since discordance with absolute values may lead to misinterpretation of CBC data. Current Interpretive Data was last revised on 2017. Basophil pct 0.3 % [facility] Comment: Interpretive Data Percent cell count reference ranges are not reported, since discordance with absolute values may lead to misinterpretation of CBC data. Current Interpretive Data was last revised on 2017. Blood 02/23/2024 12:4 4 PM LENS BLOCKER 02/23/2024 1:02 PM LENS BLOCKER Yosvany Alvarez MD LAB BLOOD ORDERABLE S Final Result Performing Organization Address City/[facility] Co de Phone Number MADELAINE [address] [place] [employer] [address] * (ABNORMAL) CBC with auto differential (02/23/2024 12:44 PM LENS BLOCKER) WBC 7.3 3.8 - 9.9 K/cumm Hgb 16.0(H) 11.9 - 15.5 g/dL [facility] Hct 48.7(H) 35.6 - 45.5 % [facility] Plt 280 150 - 400 K/cumm [facility] MPV 10.7 9.1 - 12.3 fL [facility] RBC 5.53(H) 3.90 - 5.20 M/cumm [facility] MCV 88.1 81.3 - 96.4 fL [facility] MCH 28.9 27.1 - 33.3 pg [facility] MCHC 32.9 32.3 - 35.7 g/dL [facility] RDW CV 13.5 11.1 - 14.9 % [facility] RDW SD 43.6 35.7 - 48.1 fL [facility] NRBC abs 0.00 0.00 - 0.01 K/cumm [facility] Blood (Blood, Venous) 02/23/2024 12:44 PM LENS BLOCKER 02/23/2024 1:02 PM LENS BLOCKER Yosvany Alvarez MD LAB BLOOD ORDERABLE S Final Result Performing Organization Address City/[facility]/ZIP Co de Phone Number MADELAINE [address] [place] [address] * Lipase (02/23/2024 12:44 PM LENS BLOCKER) Pathologist [facility] Lipase 41 10 - 99 Units/L Blood (Blood, Venous) 02/23/2024 12:44 PM LENS BLOCKER 02/23/2024 1:02 PM LENS BLOCKER us Yosvany Alvarez MD LAB BLOOD ORDERABLE S Final Result MADELAINE [address] [facility] Department [place] [address] * (ABNORMAL) Comprehensive metabolic panel (02/23/2024 12:44 PM LENS BLOCKER) Sodium 134(L) 135 - 145 mmol/L Potassium, pl 3.8 3.3 - 4.9 mmol/L [facility] Chloride 97 97 - 110 mmol/L [facility] CO2 25 22 - 32 mmol/L [facility] Anion gap 12 2 - 15 mmol/L [facility] BUN 7 6 - 25 mg/dL [facility] Creatinine 0.68 0.60 - 1.10 mg/dL [facility] Glucose 79 70 - 199 mg/dL [facility] Comment: Interpretive Data Fasting glucose >/= [...] 2022. Calcium 9.4 8.5 - 10.3 mg/dL [facility] Bilirubin, total 0.3 0.1 - 1.2 mg/dL [facility] Protein, pl 7.2 6.5 - 8.5 g/dL [facility] Albumin 4.4 3.5 - 5.0 g/dL [facility] Alk phos 69 40 - 130 Units/L [facility] ALT 5(L) 7 - 45 Units/L [facility] AST 14 10 - 45 Units/L [facility] Blood 02/23/2024 12:4 4 PM LENS BLOCKER 02/23/2024 1:02 PM LENS BLOCKER us Yosvany Alvarez MD LAB BLOOD ORDERABLE S Final Result MADELAINE [address] [facility] Department [place] [address] * ECG 12 lead (02/23/2024 12:38 PM LENS BLOCKER) Ventricular Rate EKG/Min 120 BPM [facility] Atrial Rate 120 BPM [facility] OK-Interval (MSEC) 136 ms [facility] QRS-Interval (MSEC) 70 ms [facility] QT-Interval (MSEC) 318 ms [facility] QTc 449 ms [facility] P [place] 41 degrees [facility] R [place] -21 degrees [facility] T [place] 50 degrees [facility] Diagnosis Sinus tachycardia Low voltage QRS Inferior infarct , age undetermined Cannot rule out Anterior infarct , age undetermined Abnormal ECG No previous ECGs available Confirmed by CORTEZ FERNANDEZ M.D. ([id number]) on 02/23/2024 11:40:48 PM [facility] 02/23/2024 12:3 8 PM LENS BLOCKER 02/23/2024 11:40 PM LENS BLOCKER us Yosvany Alvarez MD ECG ORDERABLES Fin al Result Performing Organization Address City/[facility] Co de Phone Number [facility] from Last 3 Months Insurance [facility] CHOICE [facility] HMO/PPO Address: [facility] [address] [place] [address] Care Teams Coating Mixer Tender Relationship Specialty Start Date End Date Medardo Ellington MD [address] [place] [address] PCP - General Family Practice 03/17/22
--- OUTSIDE RECORDS SUMMARY | 2024-04-03 02:36 | XMS_ITS | Encounter Summary ---
Author Organization [facility] Address [address] [place] [address] Care Team Providers Care Medical Coding Auditor Name Role Phone Weston Pemberton DO Primary Care Provider [phone] Medardo Ellington MD Primary Care Provider + Encounter Details Date Type Department Care Team (Late st Contact Info) Description 07/04/2017 Abstract [facility] Clinics Conversion Md, Generic Conversion, Social History [...] st Contact Info) Description 04/17/2024 11:00 AM APPEALS REVIEWER VETERAN Office Visit [address], [address] [place] [address] Rebecca Berg MD [address] [place] [address] 06/25/2024 11:20 AM CDT Office Visit [address] [place] [address] Peggy Urbina NP 3 [facility] [address] [place] [address] 07/02/2024 10:30 AM CDT Office Visit [facility] [address] [place] [address] Joe Herrera MD 3 [facility] [place] [address] [place] [address] documented as of this encounter Visit Diagnoses Not on filedocumented in this encounter Additional Health Concerns Infection Onset Date Last Indicated Resolved Time COVID-19 Rule Out 11/11/2021 11/11/2021 11/11/2021 9:16 PM CDT documented as of this encounter Care Teams Medical Coding Auditor Relationship Specialty Start Date End Date Weston Pemberton DO PCP - General 08/03/11 08/23/18 Medardo Ellington MD [address] [place] [phone] PCP - General FAMILY PRACTICE 08/24/18 documented as of this encounter
--- OUTSIDE RECORDS SUMMARY | 2024-04-03 02:36 | XMS_ITS | Encounter Summary ---
Author Organization [facility] Address [address] [place] [address] Care Team Providers Care Forest Pathology Teacher Name Role Phone Medardo Ellington MD Primary Care Provider + Encounter Details Date Type Department Care Team (Latest Contact Info) Description 03/21/2024 [employer] Message [employer] [facility] [address] Joe Herrera MD [address] [place] [address] [place] [address] EKG results faxed to surgeon Social [...] st Contact Info) Description 04/17/2024 11:00 AM HEEL NAIL RASPER [facility] [address] [facility], [address] [place] [phone] Rebecca Berg MD 3 [facility] [place] [address] 06/25/2024 11:20 AM CDT [facility] [address] [facility], [address] [place] [address] Peggy Urbina NP 3 [facility] [address] [place] [address] 07/02/2024 10:30 AM CDT Office Visit [facility] [address] [place] [phone] Joe Herrera MD 3 [facility] [address] [place] [phone] documented as of this encounter Visit Diagnoses Not on filedocumented in this encounter Additional Health Concerns Assessment Noted Time PHQ-9 Depression Total Score: 0 04/15/19 22 2:24 PM HEEL NAIL RASPER documented as of this encounter Care Teams Forest Pathology Teacher Relationship Specialty Start Date End Date Medardo Ellington MD [address] [place] [phone] PCP - General FAMILY PRACTICE 08/24/18 documented as of this encounter
--- OUTSIDE RECORDS SUMMARY | 2024-04-03 02:36 | XMS_ITS | Encounter Summary ---
Author Organization [facility] Address [address] [place] [address] Care Team Providers Care Welder Tech Name Role Phone Medardo Ellington MD Primary Care Provider + Encounter Details Date Type Department Care Team (Late st Contact Info) Description 01/23/2024 T[employer] Message [facility] [address] [place] [address] Rebecca Bell NP [address] [place] [address] MRI brain Social History Tobacco [...] not order an MRI for this patient. CAL OFFICE REPRESENTATIVE documented in this encounter Plan of Treatment Upcoming Encounters Date Type Department Care Team (Late st Contact Info) Description 04/17/2024 11:00 AM MEDICAL OFFICE REPRESENTATIVE [facility] 3 [facility], [address] [place] [phone] Rebecca Berg MD 3 [place] [address] 06/25/2024 11:20 AM CDT Office Visit [facility] 3 [facility], [address] [place] [phone] Peggy Urbina NP 3 [facility] [address] [place], [place] [phone] 07/02/2024 10:30 AM CDT Office Visit [facility] [address] [place] [address] Joe Herrera MD 3 [facility] [place] [address] [place] [address] documented as of this encounter Visit Diagnoses Not on filedocumented in this encounter Additional Health Concerns Assessment Noted Time PHQ-9 Depression Total Score: 0 04/15/19 22 2:24 PM MEDICAL OFFICE REPRESENTATIVE documented as of this encounter Care Teams Welder Tech Relationship Specialty Start Date End Date Medardo Ellington MD [address] [place] [address] PCP - General FAMILY PRACTICE 08/24/18 documented as of this encounter
--- OUTSIDE RECORDS SUMMARY | 2024-04-03 02:36 | XMS_ITS | Encounter Summary ---
Author Organization [facility] Address [address] [place] [address] Care Team Providers Care Clerical Clerk Name Role Phone Medardo Ellington MD Primary Care Provider + Encounter Details Date Type Department Care Team (Late st Contact Info) Description 02/07/2024 rag & bone Message [address] [address] [place] Provider results Social History Tobacco Use [...] st Contact Info) Description 04/17/2024 11:00 AM JOB SUPERINTENDENT Office Visit [facility] - [address], [address] [place] [address] Rebecca Berg MD 3 [facility] [place] [address] 06/25/2024 11:20 AM CDT Office Visit [facility] - [facility] 3 [facility], [address] [place] [address] Peggy Urbina NP 3 [facility] [address] [place] [address] 07/02/2024 10:30 AM CDT Office Visit [facility] [address] [place] [address] Joe Herrera MD 3 [facility] [address] [place] [phone] documented as of this encounter Visit Diagnoses Not on filedocumented in this encounter Additional Health Concerns Assessment Noted Time PHQ-9 Depression Total Score: 0 04/15/19 22 2:24 PM JOB SUPERINTENDENT documented as of this encounter Care Teams Clerical Clerk Relationship Specialty Start Date End Date Medardo Ellington MD [address] [place] [address] PCP - General FAMILY PRACTICE 08/24/18 documented as of this encounter
--- OUTSIDE RECORDS SUMMARY | 2024-04-03 02:36 | XMS_ITS | Referral Summary ---
Author Organization [facility] Address [address] [place] [address] Care Team Providers Care Math Teacher Name Role Phone Unavailable Primary Care Provider Unavailabl e Source Comments [facility],non-owned Affiliates and Associated Physician Practices is amultiple site organization consisting of ambulatory clinics and hospital sitesin [place], [place], [place] and [place]. This disclosure is being madepursuant to the Care Everywhere program and may not contain all information available regarding this patient. Last updated 17.[facility] [employer] Social History Tobacco Use Types Packs/Day Years Used Date Smoking Tobacco: Never Assessed Sex and Gender Information Value Date Recorded Sex Assigned at Not on file Gender Identity Not on file Sexual Orientation Not on file Plan of Treatment Not on file
--- OUTSIDE RECORDS SUMMARY | 2024-04-03 02:36 | XMS_ITS | Encounter Summary ---
Author Organization [facility] Address [address] [place] [address] Care Team Providers Care Gis Engineer Name Role Phone Weston Pemberton DO Primary Care Provider [phone]- [phone] Medardo Ellington MD Primary Care Provider + Encounter Details Date Type Department Care Team (Late st Contact Info) Description 09/29/2017 Abstract [facility] Clinics Conversion Md, Generic Conversion, Social [...] st Contact Info) Description 04/17/2024 11:00 AM INSTRUMENTATION AND CONTROLS TECHNICIAN Office Visit [address], [address] [place] [address] Rebecca Berg MD [address] [place] [address] 06/25/2024 11:20 AM CDT Office Visit [address] [place] [address] Peggy Urbina NP 3 [facility] [address] [place] [address] 07/02/2024 10:30 AM CDT Office Visit [facility] [address] [place] [address] Joe Herrera MD 3 [facility] [address] [place] [address] documented as of this encounter Visit Diagnoses Not on filedocumented in this encounter Additional Health Concerns Infection Onset Date Last Indicated Resolved Time COVID-19 Rule Out 11/11/2021 11/11/2021 11/11/2021 9:16 PM CDT documented as of this encounter Care Teams Gis Engineer Relationship Specialty Start Date End Date Weston Pemberton DO PCP - General 08/03/11 08/23/18 Medardo Ellington MD [address] [place] [phone] PCP - General FAMILY PRACTICE 08/24/18 documented as of this encounter
--- OUTSIDE RECORDS SUMMARY | 2024-04-03 02:36 | XMS_ITS | Encounter Summary ---
Author Organization [facility] Address [address] [place] [address] Care Team Providers Care Waterworks Employee Name Role Phone Medardo Ellington MD Primary Care Provider + Encounter Details Date Type Department Care Team (Late st Contact Info) Description 03/28/2024 Mobile Actiont Message Enc [facility] Multispecialty Care - [facility] [address] [facility], [address] [place] [address] Peggy Urbina NP [address] [facility] [address] [place], [place] [phone] Qulipta Social History Tobacco Use Types Packs/Day [...] st Contact Info) Description 04/17/2024 11:00 AM BRIM AND CROWN PRESSER [facility] [place] - [facility] [address] [facility], [address] [place] [address] Rebecca Berg MD [address] [facility] [place] [address] 06/25/2024 11:20 AM CDT Office Visit [facility] [address] [facility], [address] [place] [address] Peggy Urbina NP [address] [facility] [address] [place] [address] 07/02/2024 10:30 AM CDT Office Visit [facility] [address] [place] [address] Joe Herrera MD 3 [facility] [place] [address] [place] [address] documented as of this encounter Visit Diagnoses Not on filedocumented in this encounter Additional Health Concerns Assessment Noted Time PHQ-9 Depression Total Score: 0 04/15/19 22 2:24 PM BRIM AND CROWN PRESSER documented as of this encounter Care Teams Waterworks Employee Relationship Specialty Start Date End Date Medardo Ellington MD [address] [place] [address] PCP - General FAMILY PRACTICE 08/24/18 documented as of this encounter
--- OUTSIDE RECORDS SUMMARY | 2024-04-03 02:36 | XMS_ITS | Clinical Summary ---
Author Organization [facility]In[facility] Address [address] [place] [address] Care Team Providers Care Disability Hearing Officer Name Role Phone Unavailable Primary Care Provider Unavailabl e Source Comments [facility],non-owned Affiliates and Associated Physician Practices is amultiple site organization consisting of ambulatory clinics and hospital sitesin [place], [place] and [place]. This disclosure is being madepursuant to the Care Everywhere program and may not contain all information available regarding this patient. Last updated 17.[facility] Social History Tobacco Use Types Packs/Day Years [...]
--- OUTSIDE RECORDS SUMMARY | 2024-04-03 02:36 | XMS_ITS | Referral Summary ---
Author Organization [facility] Address [address] [place] [address] Care Team Providers Care Accreditation Manager Name Role Phone Medardo Ellington MD Primary Care Provider [phone] Encounters Date Type Department Care Team Description 02/23/2024 4:45 PM SEARCH DEVELOPER - 02/23/2024 7:02 PM SEARCH DEVELOPER Emergency [address] [address] Abdominal pain (Primary Dx); Elevated [...] on file Legal Sex Female 6:09 PM SEARCH DEVELOPER Gender Identity Not on file Sexual Orientation Not on file Last Filed Vital Signs Vital Sign Reading Time Taken Comments Blood Pressure 134/99 02/23/2024 6:30 PM SEARCH DEVELOPER Pulse 100 02/23/2024 6:30 PM SEARCH DEVELOPER Temperature 36.5 ??C (97.7 ??F) 02/23/2024 12:[address] Respiratory Rate 18 02/23/2024 2:56 PM SEARCH DEVELOPER Oxygen Saturation 100% 02/23/2024 6:30 PM SEARCH DEVELOPER Inhaled Oxygen Concentration - - Weight - - Height - - Body Mass Index - - Plan of Treatment Not on file Procedures Procedure Name Priority Date/Time Associated Diagnosis Comments TROPONIN T HIGH-SENSITIVITY 4-HR Timed 02/23/2024 4:[address] ABDOMEN PELVIS W CONTRAST ED 02/23/2024 3:07 PM SEARCH DEVELOPER POCT HCG, URINE Routine 02/23/2024 2:41 PM SEARCH DEVELOPER URINALYSIS AND REFLEX TO MICROSCOPIC AND CULTURE STAT 02/23/2024 2:16 PM SEARCH DEVELOPER EGFR STAT 02/23/2024 12:44 PM SEARCH DEVELOPER DIFFERENTIAL AUTO STAT 02/23/2024 12: 44 PM SEARCH DEVELOPER TROPONIN T HIGH-SENSITIVITY SERIES (BASELINE, 2HR, 4HR, 6HR) STAT 02/23/2024 12:44 PM SEARCH DEVELOPER LIPASE STAT 02/23/2024 12:44 PM SEARCH DEVELOPER COMPREHENSIVE METABOLIC PANEL STAT 02/23/2024 12:44 PM SEARCH DEVELOPER CBC WITH AUTO DIFFERENTIAL STAT 02/23/2024 12:44 PM SEARCH DEVELOPER ECG 12-LEAD STAT 02/23/2024 12:38 PM SEARCH DEVELOPER from Last 3 Months Results * Troponin T high-sensitivity 4-hour (02/23/2024 4:38 PM SEARCH DEVELOPER) Trop T hs <6 <=14 ng/L Comment: Interpretive Data For further hscTnT resources including the diagnostic algorithm and an aid in interpretation, copy and paste this link: https://nrl.testcatalog.org/show/hsTrop Current Interpretive Data last revised 2020. Trop T hs delta 0 ng/L MADELAINE JENKINS Trop T hs interp Insignificant MADELAINE JENKINS Blood 02/23/2024 4:38 PM SEARCH DEVELOPER 02/23/2024 4:51 PM SEARCH DEVELOPER us Yosvany Alvarez MD LAB BLOOD ORDERABLE S Final Result MADELAINE [address] [facility] [place] [address] * CT Abdomen Pelvis W Contrast (02/23/2024 3:07 PM SEARCH DEVELOPER) Anatomical Region Laterality Modality Body N/A Computed Tomogra phy 02/23/2024 3:30 PM SEARCH DEVELOPER Narrative 02/23/2024 3:38 PM SEARCH DEVELOPER EXAM DESCRIPTION: ?? CT ABDOMEN PELVIS W [...] Cardona: ??02/23/2024 3:38 PM T: Report ID: [id number] Reading Location: ??[id number] Procedure Note Mark Ballesteros MD - 02/23/2024 [...] signed by Mark CAPONE T: Report ID: [id number] Reading Location: [place] [address] PROCEDURES Final Result * POCT hCG, urine (02/23/2024 2:41 PM SEARCH DEVELOPER) HCG, ur, POC Negative Negative Lot Number [id number] QC Backgroud Clear Acceptable QC Control Line Acceptable Urine 02/23/2024 2:41 PM SEARCH DEVELOPER Yosvany Alvarez MD POINT OF CARE TEST ORDERABLES Final Result * Urinalysis reflex to microscopic and culture Urine (02/23/2024 2:16 PM SEARCH DEVELOPER) Color, ur Straw Yellow Clarity, ur Clear [...] for uric acid stone formation. Source: Silver Pongo Resume Current Interpretive Data was last revised on 2017 Protein, ur ql Negative Negative MADELAINE Glucose, ur ql Negative Negative [facility] Ketones, ur Trace Negative [facility] Bilirubin, ur Negative Negative [facility] Blood, ur Negative Negative [facility] Urobilinogen, ur <2.0 <2.0 mg/dL [facility] Nitrite, ur Negative Negative [facility] Leukocyte esterase, ur Negative Negative [facility] UA reflex comment Reflex conditions for microscopic UA and culture not met. [facility] Urine 02/23/2024 2:16 PM SEARCH DEVELOPER 02/23/2024 2:19 PM SEARCH DEVELOPER us Hector Johnson MD LAB MICROBIOLOGY - GENERAL ORDERABLES Final Result Performing Organization Address [facility] de Phone Number [address] [address] * Troponin T high-sensitivity series (baseline, 2hr, 4hr, 6hr) (02/23/2024 12:44 PM SEARCH DEVELOPER) Pathologist [facility] Trop T hs <6 <=14 ng/L Comment: Interpretive Data For further hscTnT resources including the diagnostic algorithm and an aid in interpretation, copy and paste this link: https://nrl.testcatalog.org/show/hsTrop Current Interpretive Data last revised 2020. Blood 02/23/2024 12:4 4 PM SEARCH DEVELOPER 02/23/2024 1:02 PM SEARCH DEVELOPER us Yosvany Alvarez MD LAB BLOOD ORDERABLE S Final Result Performing Organization Address [facility] de Phone Number [address] [place] [place] [address] * eGFR (02/23/2024 12:44 PM SEARCH DEVELOPER) [facility] eGFR >90 >=60 mL/min/1. 73 m2 Comment: [...] reviewed 2020. Blood 02/23/2024 12:4 4 PM SEARCH DEVELOPER 02/23/2024 1:02 PM SEARCH DEVELOPER us Yosvany Alvarez MD LAB BLOOD ORDERABLE S Final Result MADELAINE [address] [facility] [place] [address] * Differential, auto (02/23/2024 12:44 PM SEARCH DEVELOPER) Pathologist [facility] Neutrophil abs 4.5 1.5 - 6.5 K/cumm Imm gran abs 0.0 0.0 - 0.1 K/cumm [facility] Lymphocyte abs 2.3 0.8 - 3.3 K/cumm [facility] Monocyte abs 0.4 0.2 - 0.8 K/cumm [facility] Eosinophil abs 0.1 0.0 - 0.5 K/cumm [facility] Basophil abs 0.0 0.0 - 0.1 K/cumm [facility] Neutrophil pct 62.2 % [facility] Comment: Interpretive Data Percent cell count reference ranges are not reported, since discordance with absolute values may lead to misinterpretation of CBC data. Current Interpretive Data was last revised on 2017. Imm gran pct 0.1 % [facility] Comment: Interpretive Data Percent cell count reference ranges are not reported, since discordance with absolute values may lead to misinterpretation of CBC data. Current Interpretive Data was last revised on 2017. Lymphocyte pct 31.0 % [facility] Comment: Interpretive Data Percent cell count reference ranges are not reported, since discordance with absolute values may lead to misinterpretation of CBC data. Current Interpretive Data was last revised on 2017. Monocyte pct 5.6 % [facility] Comment: Interpretive Data Percent cell count reference ranges are not reported, since discordance with absolute values may lead to misinterpretation of CBC data. Current Interpretive Data was last revised on 2017. Eosinophil pct 0.8 % [facility] Comment: Interpretive Data Percent cell count reference ranges are not reported, since discordance with absolute values may lead to misinterpretation of CBC data. Current Interpretive Data was last revised on 2017. Basophil pct 0.3 % [facility] Comment: Interpretive Data Percent cell count reference ranges are not reported, since discordance with absolute values may lead to misinterpretation of CBC data. Current Interpretive Data was last revised on 2017. Blood 02/23/2024 12:4 4 PM SEARCH DEVELOPER 02/23/2024 1:02 PM SEARCH DEVELOPER us Yosvany Alvarez MD LAB BLOOD ORDERABLE S Final Result [facility] [address] [facility] [place], [place] [id number] * (ABNORMAL) CBC with auto differential (02/23/2024 12:44 PM SEARCH DEVELOPER) WBC 7.3 3.8 - 9.9 K/cumm Hgb 16.0(H) 11.9 - 15.5 g/dL [facility] Hct 48.7(H) 35.6 - 45.5 % [facility] Plt 280 150 - 400 K/cumm [facility] MPV 10.7 9.1 - 12.3 fL [facility] RBC 5.53(H) 3.90 - 5.20 M/cumm [facility] MCV 88.1 81.3 - 96.4 fL [facility] MCH 28.9 27.1 - 33.3 pg [facility] MCHC 32.9 32.3 - 35.7 g/dL [facility] RDW CV 13.5 11.1 - 14.9 % [facility] RDW SD 43.6 35.7 - 48.1 fL [facility] NRBC abs 0.00 0.00 - 0.01 K/cumm [facility] Blood (Blood, Venous) 02/23/2024 12:44 PM SEARCH DEVELOPER 02/23/2024 1:02 PM SEARCH DEVELOPER Yosvany Alvarez MD LAB BLOOD ORDERABLE S Final Result Performing Organization Address [facility]/ZIP Co de Phone Number [address] [place] [address] * Lipase (02/23/2024 12:44 PM SEARCH DEVELOPER) [facility] Lipase 41 10 - 99 Units/L Blood (Blood, Venous) 02/23/2024 12:44 PM SEARCH DEVELOPER 02/23/2024 1:02 PM SEARCH DEVELOPER Yosvany Alvarez MD LAB BLOOD ORDERABLE S Final Result Performing Organization Address [facility]/[employer] Co de Phone Number [address] [place] [address] * (ABNORMAL) Comprehensive metabolic panel (02/23/2024 12:44 PM SEARCH DEVELOPER) [facility] Sodium 134(L) 135 - 145 mmol/L Potassium, pl 3.8 3.3 - 4.9 mmol/L [facility] Chloride 97 97 - 110 mmol/L [facility] CO2 25 22 - 32 mmol/L [facility] Anion gap 12 2 - 15 mmol/L [facility] BUN 7 6 - 25 mg/dL [facility] Creatinine 0.68 0.60 - 1.10 mg/dL [facility] Glucose 79 70 - 199 mg/dL [facility] Comment: Interpretive Data Fasting glucose >/= 126 [...] 2022. Calcium 9.4 8.5 - 10.3 mg/dL [facility] Bilirubin, total 0.3 0.1 - 1.2 mg/dL [facility] Protein, pl 7.2 6.5 - 8.5 g/dL [facility] Albumin 4.4 3.5 - 5.0 g/dL [facility] Alk phos 69 40 - 130 Units/L [facility] ALT 5(L) 7 - 45 Units/L [facility] AST 14 10 - 45 Units/L [facility] Blood 02/23/2024 12:4 4 PM SEARCH DEVELOPER 02/23/2024 1:02 PM SEARCH DEVELOPER us Yosvany Alvarez MD LAB BLOOD ORDERABLE S Final Result MADELAINE JENKINS [address] [facility] [place] [address] * ECG 12 lead (02/23/2024 12:38 PM SEARCH DEVELOPER) Pathologist [facility] Ventricular Rate EKG/Min 120 BPM [facility] Atrial Rate 120 BPM [facility] OR-Interval (MSEC) 136 ms [facility] QRS-Interval (MSEC) 70 ms [facility] QT-Interval (MSEC) 318 ms [facility] QTc 449 ms [facility] P [place] 41 degrees [facility] R [place] -21 degrees [facility] T [place] 50 degrees [facility] Diagnosis Sinus tachycardia Low voltage QRS Inferior infarct , age undetermined Cannot rule out Anterior infarct , age undetermined Abnormal ECG No previous ECGs available Confirmed by CORTEZ FERNANDEZ M.D. ([id number]) on 02/23/2024 11:40:48 PM [facility] 02/23/2024 12:3 8 PM SEARCH DEVELOPER 02/23/2024 11:40 PM SEARCH DEVELOPER us Yosvany Alvarez MD ECG ORDERABLES Fin al Result [facility] [place] from Last 3 Months Insurance [employer] Care Teams Accreditation Manager Relationship Specialty Start Date End Date Medardo Ellington MD [address] [place] [address] PCP - General Family Practice 03/17/22
--- OUTSIDE RECORDS SUMMARY | 2024-04-03 02:36 | XMS_ITS | Clinical Summary ---
Author Organization [facility] Care Team Providers Care Ux Specialist Name Role Phone Unavailable Primary Care Provider Unavailabl e Social History Tobacco Use Types Packs/Day Years Used Date Smoking Tobacco: Never Assessed Comments Unknown Sex and Gender Information Value Date Recorded Sex Assigned at Not on file Legal Sex Female 12:24 PM ADMINISTRATIVE CLERK Gender Identity Not on file Sexual [...]
--- OUTSIDE RECORDS SUMMARY | 2024-04-03 02:36 | XMS_ITS | Encounter Summary ---
Author Organization [facility] Address [address] [place] [address] Care Team Providers Care Fire Information Officer Name Role Phone Medardo Ellington MD Primary Care Provider + Encounter Details Date Type Department Care Team (Late st Contact Info) Description 02/26/2024 [employer] Message Enc [facility] Medical Group General Surgery - [place] [address] [facility], [address] [place] [address] Mary Baez MD [address] [facility] [address] [place] [address] Request for sooner appointment Social [...] st Contact Info) Description 04/17/2024 11:00 AM CLIENT ACCOUNT MANAGER [facility] [address] [facility], [address] [place] [address] Rebecca Berg MD 3 [facility] [place] [address] 06/25/2024 11:20 AM CDT [facility] [address] [facility], [address] [place] [address] Peggy Urbina NP 3 [facility] [address] [place] [address] 07/02/2024 10:30 AM CDT Office Visit [facility] [address] [place] [address] Joe Herrera MD 3 [facility] [place] [address] [place] [phone] documented as of this encounter Visit Diagnoses Not on filedocumented in this encounter Additional Health Concerns Assessment Noted Time PHQ-9 Depression Total Score: 0 04/15/19 22 2:24 PM CLIENT ACCOUNT MANAGER documented as of this encounter Care Teams Fire Information Officer Relationship Specialty Start Date End Date Medardo Ellington MD [address] [place] [address] PCP - General FAMILY PRACTICE 08/24/18 documented as of this encounter
--- OUTSIDE RECORDS SUMMARY | 2024-04-03 02:36 | XMS_ITS | Encounter Summary ---
Author Organization [facility] Address [address] [place] [address] Care Team Providers Care Boulevard Glassware Replacer Name Role Phone Medardo Ellington MD Primary Care Provider + Encounter Details Date Type Department Care Team (Late st Contact Info) Description 08/11/[address] [facility] [address] [place] [address] Medardo Ellington MD [address] [place] [address] Brandon Social History Tobacco Use Types Packs/Day Years [...] st Contact Info) Description 04/17/2024 11:00 AM BACTERIOLOGIST SOIL [facility] [place] [facility] [address] [facility], [address] [place] [address] Rebecca Berg MD 3 [facility] [place] [address] 06/25/2024 11:20 AM CDT [facility] [place] [facility] [address] [facility], [address] [place] [address] Peggy Urbina NP 3 [facility] [address] [place] [address] 07/02/2024 10:30 AM CDT Office Visit [facility] [address] [place] [phone] Joe Herrera MD 3 [facility] [address] [place] [address] documented as of this encounter Visit Diagnoses Not on filedocumented in this encounter Additional Health Concerns Assessment Noted Time PHQ-9 Depression Total Score: 0 04/15/19 22 2:24 PM BACTERIOLOGIST SOIL documented as of this encounter Care Teams Boulevard Glassware Replacer Relationship Specialty Start Date End Date Medardo Ellington MD [address] [place] [address] PCP - General FAMILY PRACTICE 08/24/18 documented as of this encounter
--- OUTSIDE RECORDS SUMMARY | 2024-04-03 02:36 | XMS_ITS | Encounter Summary ---
Author Organization [facility] Address [address] [place] [address] Care Team Providers Care Protein Chemist Name Role Phone Medardo Ellington MD Primary Care Provider + Encounter Details Date Type Department Care Team (Late st Contact Info) Description 06/09/2023 rankdesk Message [address] [address] [place] Provider results Social History Tobacco Use [...] st Contact Info) Description 04/17/2024 11:00 AM FINANCIAL SERVICES DIRECTOR Office Visit [facility] Multispecialty Care - [address], [address] [place] [address] Rebecca Berg MD 3 [place] [address] 06/25/2024 11:20 AM CDT Office Visit [facility] Medical [facility] Multispecialty Care - [facility] [address] [facility], [address] [place] [address] Peggy Urbina NP 3 [facility] [address] [place] [address] 07/02/2024 10:30 AM CDT Office Visit [facility] [address] [place] [address] Joe Herrera MD 3 [facility] [address] [place] [phone] documented as of this encounter Visit Diagnoses Not on filedocumented in this encounter Additional Health Concerns Assessment Noted Time PHQ-9 Depression Total Score: 0 04/15/19 22 2:24 PM FINANCIAL SERVICES DIRECTOR documented as of this encounter Care Teams Protein Chemist Relationship Specialty Start Date End Date Medardo Ellington MD [address] [place] [address] PCP - General FAMILY PRACTICE 08/24/18 documented as of this encounter
--- OUTSIDE RECORDS SUMMARY | 2024-04-03 02:36 | XMS_ITS | Encounter Summary ---
Author Organization [facility] Address [address] [place] [address] Care Team Providers Care Biomedical Engineering Supervisor Name Role Phone Medardo Ellington MD [...] IV OFFICE/OUTPT VISIT,EST,LEVL V Medardo Ellington MD [address] [address] Phone: tel: fax: Douglas James MD [address] [place] [address] Phone: tel: fax: Referral ID Status Reason Start Date Expiration Date V isits Requested Visits Authorized [id number] Authorized 04/27/2023 05/26/2024 100 100 ALS INTELLIGENCE ANALYSIS MANAGER Encounter Details Date Type Department Care Team (Late st Contact Info) Description 04/20/2023 TripAdvisor Message [facility] [address] [place] [address] Yi [facility] Provider results Social History Tobacco [...] To: Cara Cerda Sent: 04/20/2023 3:19 PM SIGNALS INTELLIGENCE ANALYSIS MANAGER Subject: results Dr Chandana Marroquin got your xray results back and he said that your xray showed mild arthritis. He said that if the celebrex isn't helpful, let us know and he will refer you to a hand specialist. Please let matthewnow if you have any questions. Thanks, JORGE ALBERTO Marinelli ALS INTELLIGENCE ANALYSIS MANAGER documented in this encounter Plan of Treatment Upcoming Encounters Date Type Department Care Team (Late st Contact Info) Description 04/17/2024 11:00 AM SIGNALS INTELLIGENCE ANALYSIS MANAGER [facility] 3 [facility], [address] [place] [address] Rebecca Berg MD 3 [place] [address] 06/25/2024 11:20 AM CDT Office Visit [facility] Multispecialty Care - [facility] 3 [facility], [address] [place] [address] Peggy Urbina NP 3 [facility] [address] [place] [address] 07/02/2024 10:30 AM CDT Office Visit [facility] [address] [place] [phone] Joe Herrera MD 3 [facility] [address] [place] [address] Scheduled Referrals Name Type Priority Associated Diagnoses Orde r Schedule Ambulatory referral to Hand Surgery Referral Routine Pain of right thumb Ordered: 04/27/2023 documented as of this encounter Visit Diagnoses Diagnosis Pain of right thumb- Primary Pain in limb documented in this encounter Additional Health Concerns Assessment Noted Time PHQ-9 Depression Total Score: 0 04/15/19 22 2:24 PM SIGNALS INTELLIGENCE ANALYSIS MANAGER documented as of this encounter Care Teams Biomedical Engineering Supervisor Relationship Specialty Start Date End Date Medardo Ellington MD [address] [place] [address] PCP - General FAMILY PRACTICE 08/24/18 documented as of this encounter
--- OUTSIDE RECORDS SUMMARY | 2024-04-03 02:36 | XMS_ITS | Encounter Summary ---
Author Organization [facility] Address [facility] [place] [address] Care Team Providers Care Processing Clerk Name Role Phone Weston Pemberton DO Primary Care Provider Medardo Ellington MD Primary Care Provider + Encounter Details Date Type Department Care Team (Late st Contact Info) Description 01/27/2017 Abstract [facility] Conversion Medardo Ellington MD [address] [address] Social History Tobacco Use Types [...] CST Jan 27, 2017 Cara Cerda [address] [place] [address] Dear Cara Cerda, Thank you for choosing [facility] for your health care needs. We appreciate the opportunity to help you maintain your well being. You recently had labs drawn (CBC). Your results came back normal. Please remember to follow up as discussed at your last appointment .If you have any questions please feel free to call the office at [phone], Option #3 or Option #1 to make an appointment to discuss these results. Respectfully Yours, Electronically Signed by: Medardo Ellington MD Cc: Patients Medical Record TED PHYSICAL EDUCATION SPECIALIST documented in this encounter Plan of Treatment Upcoming Encounters Date Type Department Care Team (Late st Contact Info) Description 04/17/2024 11:00 AM ADAPTED PHYSICAL EDUCATION SPECIALIST Office Visit [facility] [address] [facility], [address] [place] [phone] Rebecca Berg MD [address] [place] [address] 06/25/2024 11:20 AM CDT Office Visit [facility] [address] [facility], [address] [place] [phone] Peggy Urbina NP [address] [facility] [address] [place] [address] 07/02/2024 10:30 AM CDT Office Visit [facility] [address] [phone] Joe Herrera MD 3 [facility] [place] [address] [place] [address] documented as of this encounter Visit Diagnoses Not on filedocumented in this encounter Additional Health Concerns Infection Onset Date Last Indicated Resolved Time COVID-19 Rule Out 11/11/2021 11/11/2021 11/11/2021 9:16 PM CDT documented as of this encounter Care Teams Processing Clerk Relationship Specialty Start Date End Date Weston Pemberton DO PCP - General 08/03/11 08/23/18 Medardo Ellington MD [address] [facility] [address] [place] [phone] PCP - General FAMILY PRACTICE 08/24/18 documented as of this encounter
--- OUTSIDE RECORDS SUMMARY | 2024-04-03 02:36 | XMS_ITS | Patient Health Summary ---
Author Organization [facility] Address [address] [place] [address] Care Team Providers Care Sports Photographer Name Role Phone Unavailable Primary Care Provider Unavailabl e Note from [facility],non-owned Affiliates and Associated Physician Practices is amultiple site organization consisting of ambulatory clinics and hospital sitesin [place], [place], [place] and [place]. This disclosure is being madepursuant to the Care Everywhere program and may not contain all information available regarding this patient. Last updated 17.[facility] Social History Tobacco Use Types Packs/Day Years Used Date Smoking Tobacco: Never Assessed Sex and Gender Information Value Date Recorded Sex Assigned at Not on file Gender Identity Not on file Sexual Orientation Not on file
--- OUTSIDE RECORDS SUMMARY | 2024-04-03 02:36 | XMS_ITS | Encounter Summary ---
Author Organization [facility] Address [address] [place] [id number] Care Team Providers Care Print Controller Name Role Phone Medardo Ellington MD Primary Care Provider + Encounter Details Date Type Department Care Team (Late st Contact Info) Description 04/27/2023 Jage[employer] Message [address] [address] [place] Provider results Social History Tobacco [...] st Contact Info) Description 04/17/2024 11:00 AM DECATING MACHINE OPERATOR Office Visit [facility] - [address], [address] [place] [address] Rebecca Berg MD [address] [place] [address] 06/25/2024 11:20 AM CDT Office Visit [facility] - [facility] [address] [facility], [address] [place] [address] Peggy Urbina NP 3 [facility] [address] [place] [address] 07/02/2024 10:30 AM CDT Office Visit [facility] [address] [place] [address] Joe Herrera MD 3 [facility] [place] [address] [place] [phone] documented as of this encounter Visit Diagnoses Not on filedocumented in this encounter Additional Health Concerns Assessment Noted Time PHQ-9 Depression Total Score: 0 04/15/19 22 2:24 PM DECATING MACHINE OPERATOR documented as of this encounter Care Teams Print Controller Relationship Specialty Start Date End Date Medardo Ellington MD [address] [place] [address] [place] [address] PCP - General FAMILY PRACTICE 08/24/18 documented as of this encounter
--- OUTSIDE RECORDS SUMMARY | 2024-04-03 02:36 | XMS_ITS | Encounter Summary ---
Author Organization [facility] Address [address] [place] [address] Care Team Providers Care Criminal Judge Name Role Phone Medardo Ellington MD Primary Care Provider + Encounter Details Date Type Department Care Team (Latest Contact Info) Description 02/01/[address] [facility] - [facility] [address] [facility] [place] [address] Estevan Clement MD [address] [facility] [address] [place], [place] [phone] Orders for Tests Social History Tobacco Use [...] st Contact Info) Description 04/17/2024 11:00 AM PACKAGING TECH Office Visit [facility] [address] [facility], [address] [place] [address] Rebecca Berg MD [address] [facility] [place] [address] 06/25/2024 11:20 AM CDT Office Visit [facility] [address] [facility], [address] [place] [address] Peggy Urbina NP [address] [facility] [address] [place] [address] 07/02/2024 10:30 AM CDT Office Visit [facility] [address] [place] [address] Joe Herrera MD 3 [facility] [address] [place] [phone] documented as of this encounter Visit Diagnoses Not on filedocumented in this encounter Additional Health Concerns Assessment Noted Time PHQ-9 Depression Total Score: 0 04/15/19 22 2:24 PM PACKAGING TECH documented as of this encounter Care Teams Criminal Judge Relationship Specialty Start Date End Date Medardo Ellington MD [address] [place] [address] PCP - General FAMILY PRACTICE 08/24/18 documented as of this encounter
--- OUTSIDE RECORDS SUMMARY | 2024-04-03 02:36 | XMS_ITS | Clinical Summary ---
Author Organization [facility] Address [address] [place] [address] Care Team Providers Care Clinical Quality Assurance Associate Name Role Phone Medardo Huynh MD Primary [...] OPEN CAPSULE OR CHEW. 90 capsule 1 06/18/2 024 Active atomoxetine (STRATTERA) 60 MG capsuleIndication s:Attention [...] (07/01/2021): Added automatically from request for surgery [id number] Ileitis 03/18/2021 Rectal bleeding 01/05/2021 Anxiety 05/29/2018 [...] Department Care Team Description 03/28/2024 9:00 AM PHP DEVELOPER [facility] [address], [address] [place] [address] Faith Urbina NP Migraine (Migraines are better. They are not everyday. ) 03/28/2024 MyChart Message Enc [facility] [place] - [address], [address] [place] [address] Faith Urbina NP Qulipta 03/28/2024 Travel 03/21/2024 MyChart Message Enc [facility] [address] Malinda Shea MD EKG results faxed to surgeon 03/07/2024 4:30 PM PHP DEVELOPER Office Visit [facility] General Surgery - [address], [address] [place] [address] Mary Baez MD Gallbladder (Patient presents for gallbladder consult. ) 03/07/2024 2:00 PM PHP DEVELOPER Office Visit [facility] [address] [facility] [address] [place] [phone] Cary García NP Follow Up (F/u (RUQ pain)) 03/07/2024 Travel 03/05/2024 1:30 PM PHP DEVELOPER Office Visit [facility] [address] [place] [address] Malinda Shea MD Consult (Tachycardia) 03/05/2024 Travel 02/26/2024 MyChart Message Enc [facility] General Surgery - [place] [address] [place] [address], [address] [place] [address] Mary Baez MD Request for sooner appointment 02/23/2024 Scan [employer] [facility] INFO SRVCS Scanned, [facility] 02/22/2024 MyChart Message Enc [address] [address] Medardo Huynh MD Compound semaglutide 02/22/[address] [address] Mary Baez MD Appointment Request 02/19/2024 8:18 AM PHP DEVELOPER - 02/19/2024 11:59 PM PHP DEVELOPER Hospital Encounter [facility] Ultrasound [address] [place] [address] Medardo Huynh MD Discharge Disposition: Home or Self Care (Routine Discharge) 02/19/2024 MyChart Message Enc [address] [address] Mychart, [facility] Provider results 02/19/2024 Travel 02/16/[address] [address] Medardo Huynh MD Results (Cardiac Event Monitor) 02/15/2024 11:20 AM PHP DEVELOPER Office Visit [address] [place] [address] Medardo Huynh MD Sinus Problem (Upper resp. ) 02/15/2024 Travel 02/09/2024 MyChart Message Enc [facility] - [address], [address] [place] [address] Faith Urbina NP Brain MRI results 02/07/2024 MyChart Message Enc [address] [address] Yi [facility] Provider results 02/06/2024 12:06 PM PHP DEVELOPER - 02/06/2024 11:59 PM PHP DEVELOPER Hospital Encounter [facility] Laboratory [address] [place] [address] Medardo Huynh MD Discharge Disposition: Home or Self Care (Routine Discharge) 02/06/2024 12:06 PM PHP DEVELOPER - 02/06/2024 11:59 PM [facility] Hospital Encounter [facility] Diagnostic Imaging [address] [place] [address] Medardo Huynh MD Discharge Disposition: Home or Self Care (Routine Discharge) 02/06/2024 11:40 AM PHP DEVELOPER Office Visit [address] [address] Medardo Huynh MD Abdominal Pain; Nausea 02/06/2024 MyChart Message Enc [address] [place] [address] Medardo Huynh MD Nausea 02/06/2024 Travel 02/01/2024 MyChart Message Enc [facility] [address] [place] [address] Estevan Clement MD Orders for Tests 01/26/2024 9:30 AM PHP DEVELOPER Telephone [facility] [place] [address] Medardo Huynh MD Holter Monitor 01/23/2024 MyChart Message [address] [address] Rebecca Bell, WIRELESS CONSTRUCTION MANAGER MRI brain 01/19/2024 1:20 PM PHP DEVELOPER Allied Health/Nurse Visit [place] [address] [place] [address] Medardo Huynh MD Allied Health Visit (Tdap inj ) 01/19/2024 Travel 01/15/2024 Telephone [facility] - [facility] [address] [facility] [address], [address] [place] [address] Faith Urbina, WIRELESS CONSTRUCTION MANAGER Results 01/12/2024 MyChart Message [address] [address] [facility] results 01/11/2024 9:21 AM PHP DEVELOPER - 01/11/2024 11:59 PM PHP DEVELOPER Hospital Encounter [facility] Laboratory [address] [place] [address] Medardo Huynh MD Discharge Disposition: Home or Self Care (Routine Discharge) 01/11/2024 9:00 AM PHP DEVELOPER Office Visit [facility] [address] [place] [address] Medardo Huynh MD Weight Loss (Weight loss options and hot flashes) 01/11/2024 Travel 01/08/2024 Telephone [facility] [place] [address] Medardo Huynh MD Orders; Schedule Test 01/05/2024 MyChart Message Enc [facility] [address] [place] [address] Medardo Huynh MD Cardiology referral 01/04/2024 10:36 AM PHP DEVELOPER - 01/04/2024 11:59 PM PHP DEVELOPER Hospital Encounter [facility] Sleep Lab [address] [place] [address] Faith Urbina NP Unspecified Sleep Apnea Discharge Disposition: Home or Self Care (Routine Discharge) 01/04/2024 Travel from Last 3 Months Immunizations Name Administration Dates Next Due Fluzone 6 Months+ Quad (0.5 mL Prefilled Syringe) 12/30/2019 Hepatitis B 03/09/2004,10/08/2003,09/08/2003 Influenza Adult (Generic) 01/02/2022,09/2020,12/15/2017, 015,12/09/2013,01/07/2010,12/28/2007,,01/07/2005 MMR (Generic) 10/12/1992,12/02/1982 [facility] COVID-19 (12+) MRNA, LNP-S, PF, 100 MCG/ 0.5 ML DOSE 03/24/2020,02/25/2020 [facility] COVID-19 (CLINICAL TRIAL EDUCATOR DAMARI CARLOS), MRNA, LNP-S, PF, 50 MCG/ [...] Comments Blood Pressure 147/87 03/07/2024 4:35 PM PHP DEVELOPER Pulse 97 03/28/2024 9:12 AM PHP DEVELOPER Temperature 36.7 ??C (98.1 ??F) 03/07/2024 4:35 PM CS T Respiratory Rate 16 03/07/2024 4:35 PM PHP DEVELOPER Oxygen Saturation 97% 03/28/2024 9:12 AM PHP DEVELOPER Inhaled Oxygen Concentration - - Weight 92.1 kg (203 lb) 03/28/2024 9:12 AM PHP DEVELOPER Height 177.8 cm (5' 10 ) 03/28/2024 9:12 AM PHP DEVELOPER Body Mass Index 29.13 03/28/2024 9:12 AM PHP DEVELOPER Plan of Treatment Upcoming Encounters Date Type Department Care Team (Late st Contact Info) Description 04/17/2024 11:00 AM PHP DEVELOPER Office Visit [facility] - [address], [address] [place] [address] Rebecca Berg MD [address] [place] [address] 06/25/2024 11:20 AM CDT Office Visit [facility] - [facility] [address] [facility] [address], [address] [place] [address] Faith Urbina NP [address] [facility] [address] [place] [address] 07/02/2024 10:30 AM CDT Office Visit [facility] [address] [place] [address] Malinda Shea MD [address] [facility] [address] [place] [phone] Health Maintenance Due Date Last Done Comments Cervical Cancer Screening Pap Smear (Age 30 to 64) Every 3 Years 1980 Annual Physical 1984 Hepatitis C 08/28/1999 Cervical Cancer Screening with HPV 12/30/2014 Cervical Cancer Screening Pap with HPV Testing (Age 30 to 64) Every 5 Years 12/30/2019 12/29/2014 COVID-19 Vaccine ( season) 2023 03/29/2021, 03/24/2020, 02/25/2020 Influenza Adult (#1) 2023 01/02/2022, 12/04/2020, 12/30/2019, Additional history exists Mammogram Screening 06/07/2025 06/08/2023, 9 DTaP, Tdap and Td Vaccines (4 - Td or Tdap) 01/18/2034 01/19/2024, 08/26/2009, 03/12/2008 Hepatitis B Vaccines Completed 03/09/2004, 10/08/2003, 09/08/2003 PHQ-2 (Physician [place]) Completed 03/07/2024 HPV Vaccines Aged Out No [...] (NON MIDMARK ACQUIRED) Routine 03/05/2024 1:43 PM PHP DEVELOPER Gallbladder sludge Tachycardia US ABD LIMITED Routine 02/19/2024 8:39 AM PHP DEVELOPER Pain of upper abdomen EVENT RECORDER (ECG) UP TO 30 DAYS COMPLETE Routine 02/12/2024 4:13 PM PHP DEVELOPER Diaphoresis Nausea Lightheaded Dizziness XR ABD KUB Routine 02/06/2024 12:40 PM PHP DEVELOPER Pain of upper abdomen LIPASE Routine 02/06/2024 12:10 PM PHP DEVELOPER Pain of upper abdomen COMPREHENSIVE METABOLIC PANEL Routine 02/06/2024 12:10 PM PHP DEVELOPER Pain of upper abdomen CBC W/DIFF AUTOMATED Routine 02/06/2024 12:10 PM PHP DEVELOPER Pain of upper abdomen TSH W/REFLEX Routine 01/11/2024 9:28 AM PHP DEVELOPER Hot flashes FSH, FOLLICLE STIM HORMONE Routine 01/11/2024 9:28 AM PHP DEVELOPER Hot flashes IRON SAT PANEL (IRON,IBC,%SAT) Routine 01/11/2024 9:28 AM PHP DEVELOPER Iron deficiency CBC W/DIFF AUTOMATED Routine 01/11/2024 9:28 AM PHP DEVELOPER Iron deficiency HOME SLEEP STUDY - WATCHPAT Routine 01/04/2024 5:30 PM PHP DEVELOPER Sleep apnea, unspecified type MG SCREENING W HANNAH MYKE DIGI Routine 06/08/2023 4:12 PM CDT Encounter for screening mammogram for malignant neoplasm of breast HPV MRNA E6/E7 Routine 12/29/2014 7:03 PM PHP DEVELOPER from Last 3 Months or Most Recently Relevant to Health Maintenance Results * ELECTROCARDIOGRAM (03/05/2024 1:43 PM PHP DEVELOPER) 03/05/2024 1:43 PM PHP DEVELOPER Narrative [facility] - 03/06/2024 11:25 AM PHP DEVELOPER ? [facility] ? Test Date: ?2024-03-05 Pat Name: ? CARA CERDA ? Department: ?? 108 ? Room: ? Gender: ? Female ? Renewable Energy Broker: ?? : ?1980 ? Requested By: MALINDA SHEA Order Number: [id number] ?Reading : ?? Malinda Shea ? Measurements Intervals ?Isabel ? Rate: ? 94 ? P: ?66 [place]: ? 148 ?QRS: ?50 QRSD: ? 86 ? T: ?32 QT: ? 334 ? QTc: ?418 ? Interpretive Statements SINUS RHYTHM LOW QRS VOLTAGE IN PRECORDIAL LEADS COMPARED TO PREVIOUS TRACING No significant change DEVELOPER Procedure Note Malinda Shea MD - 03/06/2024 [facility] Test Date: 2024-03-05 Pat Name: CARA CERDA Department: 108 Room: Gender: Female Renewable Energy Broker: : 1980 Requested By: MALINDA SHEA Order Number: [id number] Reading MD: Malinda Shea Measurements Intervals Isabel Rate: 94 P: 66 [place]: 148 QRS: 50 QRSD: 86 T: 32 QT: 334 QTc: 418 Interpretive Statements SINUS RHYTHM LOW QRS VOLTAGE IN PRECORDIAL LEADS COMPARED TO PREVIOUS TRACING No significant change DEVELOPER us Malinda Shea MD PROCEDURES-ORDERABLE NO CHARG E Final Result [facility] * US ABD LIMITED (02/19/2024 8:39 AM PHP DEVELOPER) Anatomical Region Laterality Modality Abdomen Ultrasound 02/19/2024 8:45 AM PHP DEVELOPER Impressions 02/19/2024 8:48 AM PHP DEVELOPER IMPRESSION: Gallbladder sludge without sonographic evidence of acute cholecystitis. Ordered By: MEDARDO HUYNH Interpreted By: Yeyo Samuel MD, 02/19/2024 8:45 AM Narrative 02/19/2024 8:48 [place] [address] EXAM: ABDOMINAL ULTRASOUND LIMITED INDICATION: Abdominal pain. [...] Procedure Note Yeyo Samuel MD - 02/19/2024 [place] [address] EXAM: ABDOMINAL ULTRASOUND LIMITED INDICATION: Abdominal pain. [...] TO 30 DAYS COMPLETE (02/12/2024 4:13 PM PHP DEVELOPER) Narrative [facility] - 02/12/2024 4:13 PM PHP DEVELOPER [place], [place] ??[address] Phone: ?? Fax: ?? REGISTERED NURSE AMBULATORY REPORT PATIENT NAME: ??Cara Cerda : ??1980 PCP: ??MEDARDO HUYNH MD INTERPRETING CALENDER ROLL PRESS OPERATOR: ??Daniel Raygoza MD INDICATION: ??Generalized hyperhidrosis. Baseline [...] MD CV VASCULAR ORDERABLES F inal Result [facility] * XR ABD KUB (02/06/2024 12:40 PM PHP DEVELOPER) Anatomical Region Laterality Modality Abdomen Radiographic Alma ging 02/06/2024 1:27 PM PHP DEVELOPER Impressions 02/06/2024 1:29 PM PHP DEVELOPER IMPRESSION: Paucity of small bowel gas limits evaluation of the bowel gas pattern. No peter dilatation. Mild colonic stool burden. Ordered By: MEDARDO HUYNH Interpreted By: Yeyo Samuel MD, 02/06/2024 1:27 PM Narrative 02/06/2024 1:29 PM PHP DEVELOPER [address] [address] XR ABD KUB INDICATION: pain ?? TECHNIQUE: AP supine views of the abdomen. 2 total images. COMPARISON: Abdominal radiograph 06/11/2020. FINDINGS: The upper abdomen an lung bases are not completely included in this examination. Paucity of small bowel gas limits evaluation of the bowel gas pattern. No pteer dilatation. Mild colonic stool burden, greatest at the hepatic flexure. Stool and gas is seen the level the rectum. Ligation clips seen projecting over the pelvis. Limited evaluation for pneumoperitoneum on supine view. No pathologic calcifications identified. Osseous structures appear grossly intact. Procedure Note Yeyo Samuel MD - 02/06/[address] [address] XR ABD KUB INDICATION: pain TECHNIQUE: AP [...] (ABNORMAL) COMPREHENSIVE METABOLIC PANEL (02/06/2024 12:10 PM PHP DEVELOPER) GLUCOSE 77 70 - 99 MG/DL 02/06/2024 1:14 PM [facility] BUN 7 7 - 18 MG/DL 02/06/2024 1:14 PM [facility] CREATININE S/P/B 0.70 0.55 - 1.02 MG/DL 02/06/2024 1:14 PM [facility] SODIUM S/P/B 135(L) 136 - 145 MMOL/L 02/06/2024 1:14 PM [facility] POTASSIUM S/P/B 3.8 3.5 - 5.1 MMOL/L 02/06/2024 1:14 PM [facility] CHLORIDE S/P/B 99(L) 100 - 108 MMOL/L 02/06/2024 1:14 PM [facility] CO2 27.3 21 - 32 MMOL/L 02/06/2024 1:14 PM [facility] CALCIUM S/P/B 8.7 8.5 - 10.1 MG/DL 02/06/2024 1:14 PM [facility] BILIRUBIN TOTAL S/P/B 0.4 0.2 - 1.2 MG/DL 02/06/2024 1:14 PM [facility] Comment: THIS ASSAY IS NOT RECOMMENDED FOR PATIENTS UNDERGOING TREATMENT WITH ELTROMBOPAG DUE TO THE POTENTIAL FOR FALSELY ELEVATED RESULTS. TOTAL PROTEIN S/P/B 6.9 6.4 - 8.2 G/DL 02/06/2024 1:14 PM [facility] ALBUMIN S/P/B 3.6 3.4 - 5.0 G/DL 02/06/2024 1:14 PM PHP DEVELOPER [facility] AST 12(L) 15 - 37 U/L 02/06/2024 1:14 PM [facility] ALT 16 14 - 55 U/L 02/06/2024 1:14 PM [facility] ALKALINE PHOSPHATASE S/P/B 63 50 - 136 U/L 02/06/2024 1:14 PM [facility] ANION GAP 8.7 5 - 15 MMOL/L 02/06/2024 1:14 PM [facility] BUN CREATININE RATIO 10.0 6 - 26 02/06/2024 1:14 PM [facility] A/G RATIO 1.1 1.0 - 2.0 RATIO 02/06/2024 1:14 PM [facility] GFR ESTIMATE >90 >90 ML/MIN/1.7 3 M2 02/06/2024 1:14 PM [facility] Comment: NOTE: eGFR is not calculated for patients <18 years of age. This is an estimated GFR calculation using the new CKD EPI creatinine equation without race and so does not require a correction factor for race. This estimated GFR should not be used for calculating drug doses. 02/06/2024 12:1 0 PM PHP DEVELOPER us Medardo Huynh MD LABORATORY Final Re sult [facility] [address] [place] [address], [place] [phone] * CBC W/DIFF AUTOMATED (02/06/2024 12:10 PM PHP DEVELOPER) Only the most recent of2 resultswithin the time period is included. WBC 7.61 4.50 - 11.00 x10'3/uL 02/06/2024 12:51 PM [facility] RBC 5.19 4.20 - 5.40 x10'6/uL 02/06/2024 12:51 PM [facility] HGB 15.3 12.0 - 16.0 G/DL 02/06/2024 12:51 PM [facility] HCT 46.4 38.0 - 48.0 % 02/06/2024 12:51 PM [facility] MCV 89.4 81.0 - 99.0 FL 02/06/2024 12:51 PM [facility] MCH 29.5 27.0 - 31.0 PG 02/06/2024 12:51 PM [facility] MCHC 33.0 32.0 - 36.0 G/DL 02/06/2024 12:51 PM [facility] RDW 13.2 11.5 - 14.5 % 02/06/2024 12:51 PM [facility] PLT 270 130 - 400 x10'3/uL 02/06/2024 12:51 PM [facility] MPV 10.3 9.3 - 12.2 FL 02/06/2024 12:51 PM [facility] CBC COMMENT AUTOMATED RBC MORPHOLOGY AND PLATELET EVALUATION NORMAL 02/06/2024 12:51 PM [facility] NEUTROPHILS % 74.9 % 02/06/2024 12:51 PM [facility] LYMPHOCYTES % 18.7 % 02/06/2024 12:51 PM [facility] MONOCYTES % 4.9 % 02/06/2024 12:51 PM [facility] EOSINOPHILS 0.8 % 02/06/2024 12:51 PM [facility] BASOPHILS 0.4 % 02/06/2024 12:51 PM PHP DEVELOPER [facility] IMMATURE GRANS % 0.3 % 02/06/20 24 12:51 PM PHP DEVELOPER [facility] NRBC % 0.0 % 02/06/2024 12:51 PM [facility] ABS. NEUTROPHILS TOTAL 5.71 1.80 - 7.70 x10'3/uL 02/06/2024 12:51 PM [facility] ABS. LYMPHOCYTES 1.42 1.00 - 4.80 x10'3/uL 02/06/2024 12:51 PM [facility] ABS. MONOCYTES 0.37 0.24 - 0.86 x10'3/uL 02/06/2024 12:51 PM [facility] ABS. EOSINOPHILS 0.06 0.04 - 0.36 x10'3/uL 02/06/2024 12:51 PM [facility] ABS. BASOPHILS 0.03 0.01 - 0.08 x10'3/uL 02/06/2024 12:51 PM [facility] ABS. IMMATURE GRANULOCYTES 0.02 0.00 - 0.49 x10'3/uL 02/06/2024 12:51 PM [facility] ABS. NUCLEATED RBC'S 0.00 0.00 - 0.01 x10'3/uL 02/06/2024 12:51 PM [facility] 02/06/2024 12:1 0 PM PHP DEVELOPER us Medardo Huynh MD LABORATORY Final Re sult [facility] [address] [place] [address], [place] [phone] * LIPASE (02/06/2024 12:10 PM PHP DEVELOPER) LIPASE 47 16 - 77 UNITS/L 02/06/2024 1:14 PM PHP DEVELOPER [facility] 02/06/2024 12:1 0 PM PHP DEVELOPER us Medardo Huynh MD LABORATORY Final Re sult Performing Organization Address [facility] Co de Phone Number [facility] [address] [place] [address], [place] [phone] * TSH W/REFLEX (01/11/2024 9:28 AM PHP DEVELOPER) [facility] TSH 3.010 0.358 - 3.74 uIU/ML 01/11/2024 10:49 AM PHP DEVELOPER [facility] Comment: HIGH DOSES OF BIOTIN MAY INTERFERE WITH THIS TEST RESULT. CORRELATION TO CLINICAL HISTORY AND PRESENTATION RECOMMENDED. FREE T4 NOT INDICATED 01/11/2024 9:28 AM PHP DEVELOPER us Medardo Huynh MD LABORATORY Final Re sult Performing Organization Address [facility] Co de Phone Number [facility] [address] [place] [address], [place] [phone] * (ABNORMAL) IRON SAT PANEL (IRON,IBC,%SAT) (01/11/2024 9:28 AM PHP DEVELOPER) [facility] IRON 36(L) 50 - 170 MCG/DL 01/11/2024 1:00 PM PHP DEVELOPER [facility] IRON BINDING CAPACITY 269 250 - 450 MCG/DL 01/11/2024 1:00 PM [facility] IRON SATURATION 13(L) 20 - 55 % 1:00 PM [facility] 01/11/2024 9:28 AM PHP DEVELOPER us Medardo Huynh MD LABORATORY Final Re sulbettie Performing Organization Address City/[facility]/ZIP Co de Phone Number [facility] [address] [place] [address], * FSH, FOLLICLE STIM HORMONE (01/11/2024 9:28 AM PHP DEVELOPER) FSH 12.3 MIU/ML 01/11/2024 2:16 PM PHP DEVELOPER [facility] Comment: REFERENCE RANGES FOR FEMALES: ??FOLLICULAR ? 3.5-12.5 ??MID-CYCLE ?4.7-21.5 ??LUTEAL ? 1.7-7.7 ??POSTMENOPAUSAL ?25.8-134.8 01/11/2024 9:28 AM PHP DEVELOPER Mdeardo Huynh MD LABORATORY Final Pamela hill Performing Organization Address [facility] Co de Phone Number [facility] [address] [place] [address], * Home Sleep Study - WatchPat ([id number]) (01/04/2024 5:30 PM PHP DEVELOPER) Narrative [facility] - 01/04/2024 5:30 PM PHP DEVELOPER Isaac Vega MD ? 01/15/2024 10:24 AM Patient Information First Name: CARA Last Name: ELLIS ID: [id number] Date: 1980 Age: 43 Gender: Female BMI: [...] per Minute: ??<0.1 Rev. ?? Printed on:01/15/2024 01/06/2024,[id number],1980,Female *The automatic analysis events or stages have [...] snoring and other sleep-related issues, such as VENDING TECHNICIAN depressants, especially at bedtime. Raw data reviewed and electronically signed by: Isaac Vega ??on 01/15/2024 10:20:51 AM at ??4:20:56PM, [facility] us Faith Urbina NP SLEEP CENTER ORDERABLES Adelina sofia Result Performing Organization Address City/State/[facility] Co de Phone Number [facility] [address] [place] [address], * MG SCREENING W HANNAH MYKE DUMONT (06/08/2023 4:12 PM CDT) Anatomical Region [...] * HPV MRNA E6/E7 (12/29/2014 7:03 PM PHP DEVELOPER) HPV MRNA E6/E7 SEE NOTE [facility] OUP TO EPIC CONVERSION Comment: Not Detected Reference range: NOT DETECTED This assay detects E6/E7 viral messenger RNA (mRNA) from 14 high-risk HPV types (16,18,31,33,35,39,45,51, 52,56,58,59,66,68). This test was performed using the APTIMA(R) TMA HPV Assay ([employer] For additional information, please refer to http://education.[employer]par[employer].SportsMEDIA Technology/faq/VWC680j7 Test Performed by [facility], [facility], [address] [place] [address] Tony Hernandez M.D., Ph.D., Director of Laboratories , [place] [id number] 12/29/2014 7:03 PM PHP DEVELOPER 12/29/2014 7:03 PM PHP DEVELOPER Narrative [facility] TO EPIC CONVERSION - 12/29/2014 7:03 PM PHP DEVELOPER [Task Note] HPV is normal. ??Awaiting pap. us Nita Snow PA-C PATHOLOGY/CYTOLOGY ORDERAB LES Final Result [facility] TO EPIC CONVERSION from Last 3 Months or Most Recently Relevant to Health Maintenance Insurance [facility] Care Teams Clinical Quality Assurance Associate Relationship Specialty Start Date End Date Medardo Huynh MD [address] [address] PCP - General FAMILY PRACTICE 08/24/18
--- OUTSIDE RECORDS SUMMARY | 2024-04-03 02:36 | XMS_ITS | Encounter Summary ---
Author Organization [facility] Address [address] [place] [address] Care Team Providers Care Lokie Driver Name Role Phone Medardo Ellington MD Primary Care Provider + Encounter Details Date Type Department Care Team (Late st Contact Info) Description 01/12/2024 [employer] Direct Message [address] [address] [facility], [facility] Provider results Social History Tobacco Use [...] st Contact Info) Description 04/17/2024 11:00 AM DIPLOMATIC INTERPRETER/TRANSLATOR Office Visit [facility] - [address], [address] [place] [address] Rebecca Berg MD [address] [place] [address] 06/25/2024 11:20 AM CDT Office Visit [facility] - [facility] [address] [facility], [address] [place] [address] Peggy Urbina NP [address] [facility] [address] [place] [address] 07/02/2024 10:30 AM CDT Office Visit [facility] [address] [place] [address] Joe Herrera MD 3 [facility] [address] [place] [phone] documented as of this encounter Visit Diagnoses Not on filedocumented in this encounter Additional Health Concerns Assessment Noted Time PHQ-9 Depression Total Score: 0 04/15/19 22 2:24 PM DIPLOMATIC INTERPRETER/TRANSLATOR documented as of this encounter Care Teams Lokie Driver Relationship Specialty Start Date End Date Medardo Ellington MD [address] [place] [address] PCP - General FAMILY PRACTICE 08/24/18 documented as of this encounter
--- NOTE | 2024-04-03 10:20 | WPDHPUPDATE1 ---
History and Physical Update Update Date/Time: 04/03/24 10:20 History and Physical has been reviewed, including an updated exam of the patient. There are NO changes in the patient's condition. Risks, benefits, and alternatives have been discussed and questions answered. Patient agrees to proceed with procedure.
[2024-04-03] MEDS: LACTATED RINGERS 1,000 ML 30 ML IV CONT ×3 (10:30→14:07)
[2024-04-03] MEDS: ACETAMINOPHEN 500 MG TABLET 1000 MG PO (10:36)
[2024-04-03] MEDS: KETOROLAC 15 MG/ML VIAL (*BKC) IV PUSH (10:37)
[2024-04-03 10:53] LABS: BEDSIDEPREGUCG Negative (Negative)
--- NOTE | 2024-04-03 11:50 | P.PNAN_ITS ---
Anes - Initial Pre Proc Eval Procedure: Operation Date: 04/03/24 12:00 Proposed Procedures p Laparoscopic Cholecystectomy - Constanza Ho MD Date/Time: 04/03/24 11:50 Surgeon: Constanza Ho MD Pre Op Diagnosis: chronic cholecystitis Patient Data Age: 43 Gender: F Height: 1.78 m Weight: 92.95 kg Last Vital Signs Temp 36.1 C L 04/03/24 10:00 Pulse 99 04/03/24 10:00 Resp 18 04/03/24 10:00 BP 138/77 04/03/24 10:00 Pulse Ox 100 04/03/24 10:00 O2 Del Method Room Air 04/03/24 10:00 Allergies Allergy/AdvReac Type Severity Reaction Status Date / Time No Known Allergies Allergy Verified 04/03/24 10:34 Home Medications ?Medication ?Instructions ?Recorded ?Confirmed ?Type atogepant 60 mg tablet (Qulipta) 60 mg PO DAILY 03/12/24 04/03/24 History atomoxetine 60 mg capsule 60 mg PO BID 03/12/24 03/21/24 History (Strattera) celecoxib 200 mg capsule (Celebrex) 200 mg PO BID 03/12/24 04/03/24 History clonazepam 0.5 mg tablet 0.5 mg PO QHS PRN anxiety 03/12/24 03/21/24 History esomeprazole magnesium 20 mg 20 mg PO DAILY 03/12/24 03/21/24 History capsule,delayed release (Nexium) linaclotide 290 mcg capsule 290 mcg PO DAILY 03/12/24 04/03/24 History (Linzess) ondansetron HCl 4 mg tablet 4 mg PO Q8H PRN nausea and vomiting 03/12/24 03/21/24 History rizatriptan 10 mg tablet (Maxalt) 10 mg PO ONCE PRN migraine headache 03/12/24 04/03/24 History ubrogepant 100 mg tablet (Ubrelvy) 100 mg PO ONCE PRN migraine 03/12/24 03/21/24 History headache Laboratory Tests 04/03/24 10:08 POC Urine HCG, Qual Negative (Negative) Patient hx anesthesia problems: none Family hx anesthesia problems: none Results Review: All pre-operative results and documents have been reviewed as part of the pre- operative evaluation. REPLACED BY [facility] Past Medical History Medical History Irritable bowel syndrome Headache GERD (gastroesophageal reflux disease) Gallbladder disorder Arthritis Anxiety Anemia Surgical History Surgical History H/O inguinal hernia repair 1988 Previous section 2006 2011 Family History Family History Mother Cancer Grandparent Cancer Diabetes mellitus Hypertension Heart disease Father Depression Sibling Depression Social History Social History Years smoked: 15 Smoking status: Former smoker Tobacco type: cigarettes Substance use: never Do You Feel Safe in your Home?: Yes Lack of Transportation: No Lack of Food: Never True Current Housing: I Have Housing Concerned About Future Housing: No Difficulty Paying Gas/Electric Bills: No Difficulty Paying for Meds: No Currently Unemployed: No Education: Associate Degree Difficulty w/ Childcare or Family Care: No Living arrangements: with family Spiritual care concerns: No Anes - Eval Final PreProcedure Day of Procedure 04/03/24 11:50 Patient weight: overweight Heart: regular rate and rhythm Lungs: clear to auscultation Airway: Mallampati scale class II Neurological: alert and oriented Last oral intake: >/= 8 hours ASA classification: III Emergent: no Anesthetic plan: proceed Anesthesia type and monitoring: general ETT and standard monitoring Results Review: All pre-operative results and documents have been reviewed as part of the pre- operative evaluation. Informed Consent: The patient's anesthetic plan and its attendant risks and benefits were discussed with the patient/family/POA. Questions were solicited and answers provided to the satisfaction of the patient/family/POA.
[2024-04-03] MEDS: ceFAZolin 2 GM/D5W 50 ML 2 GM/50 ML BAG IVPB (12:00)
[2024-04-03] MEDS: BUPIVACAINE/EPINEPHRINE 0.5% 30 ML VIAL INFILTRATE (12:24)
--- NOTE | 2024-04-03 13:10 | W.PM.PROC2 ---
Procedure Note - Detailed Date of Procedure 04/03/24 Pre-op Diagnosis chronic cholecystitis Post-op Diagnosis Same Procedure Performed Laparoscopic cholecystectomy Surgeon Constanza Ho MD Anesthesia General Indications 43-year-old female presented to the office complaining of postprandial right upper quadrant abdominal pain associated with nausea and vomiting. Workup including imaging significant for chronic cholecystitis. Findings Moderate cholecystitis Description of Procedure The patient was taken to the operating room placed in the supine position. After adequate induction of general anesthesia, the patient was prepped and draped in normal sterile fashion. A time-out was then performed to verify the patient's identity as well as the procedure being performed. I then made a 5 mm incision in the infraumbilical region. Through this, a Veress needle was placed into the peritoneal cavity and CO2 gas was then insufflated. After adequate pneumoperitoneum was achieved, the Veress needle was removed and a 5 mm optiview trocar was placed through this incision under direct visualization. I then placed the laparoscope through this trocar site and under direct visualization placed a further 12 mm subxiphoid port as well as 2 additional 5 mm ports in the right upper abdomen. The gallbladder was then identified and was noted to be moderately inflamed and distended. I was able to place a grasper at the dome of the gallbladder and this was retracted anterior and cephalad up over the liver. A 2nd retractor was then placed at the infundibulum and retracted laterally, this allowed visualization of the triangle of Calot. I then was able to visualize the cystic duct in its entirety from its proximal insertion into the gallbladder, to its distal junction with the common hepatic/common bile duct junction. At this point, I carefully skeletonized the proximal cystic duct with the [place] dissector. I then clipped and transected the proximal cystic duct. Next I visualized the cystic artery. Again the artery was skeletonized, clipped, and transected. I then used the Bovie cautery to take down the peritoneal attachments of the gallbladder off the liver bed. This was somewhat difficult given the amount of inflammation in the posterior space. Once the gallbladder specimen was completely detached, an endo-pouch was placed through the 12 mm port site. I then placed the gallbladder specimen into the Endo pouch and removed the endo-pouch from the 12 mm port site. The specimen will now be sent to pathology for further review. I then copiously irrigated the right upper quadrant. Some mild oozing was noted in the liver bed and this was controlled with the bovie cautery. I then placed some hemostatic powder in the liver bed. Hemostasis was noted in the liver bed, the clips were noted to be in good position on both the cystic duct stump and the cystic artery stump. No other pathology was noted in the right upper quadrant. I then moved the laparoscope to the subxiphoid port. No iatrogenic injury or other pathology was noted in the lower abdomen. I then closed the 12 mm trocar site under direct visualization using the Iban cone and 0 Vicryl suture. At this point, the abdomen was desufflated and all ports removed. All port sites were then closed with 4.O Monocryl subcuticular sutures. Dermabond was placed on each incision. The patient tolerated the procedure well, was extubated in the operating room postoperative and will be transferred to the recovery room in stable condition Estimated Blood Loss 100 Drains No Packing No Pathology Yes Complications No immediate complications Condition Stable Disposition PACU [facility] Billing Surgery - Charge Forward: Surgery Billing
[2024-04-03] MEDS: ONDANSETRON INJ 4 MG/2 ML VIAL IV PUSH (13:16)
[2024-04-03] MEDS: fentaNYL CITRATE INJ (*CRX) 100 MCG/2 ML VIAL 25 MCG IV PUSH ×6 (13:20→14:30)
[2024-04-03] MEDS: diphenhydrAMINE HCl INJ 50 MG/ML VIAL 25 MG IV PUSH (13:46)
[2024-04-03] MEDS: SCOPOLAMINE 1 MG PATCH 1 PATCH TRANSDERM (13:48)
[2024-04-03] MEDS: oxyCODONE HCL (*CRX) 5 MG TAB IR PO (15:09)
== END 2024-04-03 16:10 | disposition home or self-care (01) ==
PROVIDERS: PCP Family Medicine; Visit Provider Surgery
PROC: 0FT44ZZ Resection of Gallbladder, Percutaneous Endoscopic Approach (ICD-10-PCS; CPT 47562; principal; 2024-04-03 12:00)
DX: K82.4 Cholesterolosis of gallbladder (principal); Z87.891 Personal history of nicotine dependence
CPT/HCPCS: 47562; 88304; A9270; J0690; J1100; J1200; J1885; J2250; J2405; J2704; J3010; J7030; J7120

== ENCOUNTER 2025-01-09 10:30 | Outpatient (CLI) | payer OTHER, SELFPAY ==
--- OUTSIDE RECORDS SUMMARY | 2025-01-09 10:00 | XMS_ITS | Encounter Summary ---
Author Organization [facility] Address [address] [place] [address] Care Team Providers Care Grizzly Worker Name Role Phone Ambika Nguyen MD Primary Care Provider [phone] Encounter Details Date Type Department Care Team (Late st Contact Info) Description 01/09/2025 10:00 AM MANAGEMENT DEPARTMENT CHAIR Office Visit [facility] Oncology and Hematology - [place] [address] [place] [address] Camilla Rodríguez MD [address] [place] [address] Erythrocytosis (Primary Dx) Social History Tobacco Use Types Packs/Day Years Used Date Smoking Tobacco: Former Cigarettes 1 17 0 02/27/1997 - 02/27/2014 Smokeless Tobacco: Never Tobacco Cessation:Counseling Given: Not Answered Alcohol Use Standard Drinks/Week Comments Yes 0 (1 standard drink = 0.6 oz pur e alcohol) Occasionally Comments Unknown Sex and Gender Information Value Date Recorded Sex Assigned at Not on file Legal Sex Female 3:59 PM CDT Gender Identity Not on file Sexual Orientation Not on file documented as of this encounter Last Filed Vital Signs Vital Sign Reading Time Taken Comments Blood Pressure 135/88 01/09/2025 9:58 AM MANAGEMENT DEPARTMENT CHAIR Pulse 85 01/09/2025 9:58 AM MANAGEMENT DEPARTMENT CHAIR Temperature 36.2 C (97.1 F) 01/09/2025 9:58 AM MANAGEMENT DEPARTMENT CHAIR Respiratory Rate 15 01/09/2025 9:58 AM MANAGEMENT DEPARTMENT CHAIR Oxygen Saturation 98% 01/09/2025 9:58 AM MANAGEMENT DEPARTMENT CHAIR Inhaled Oxygen Concentration - - Weight 93.8 kg (206 lb 12.8 oz) 01/09/2025 9:58 AM MANAGEMENT DEPARTMENT CHAIR Height 175.3 cm (5' 9) 01/09/2025 9:58 AM MANAGEMENT DEPARTMENT CHAIR Body Mass Index 30.54 01/09/2025 9:58 AM MANAGEMENT DEPARTMENT CHAIR documented in this encounter Plan of Treatment Upcoming Encounters Date Type Department Care Team (Late st Contact Info) Description 01/30/2025 4:30 PM MANAGEMENT DEPARTMENT CHAIR Telephone Check Up [facility] Oncology and Hematology - [place] [address] [facility] [address] [place] [address] Shakeel Pierson MD [address] [facility] [address] [place] [address] Scheduled Orders Name Type Priority Associated Diagnoses Orde r Schedule CBC WITH DIFFERENTIAL Lab Stat Erythrocytosis Expected: 01/09/2025, Expires: 01/09/2026 COMPREHENSIVE METABOLIC PANEL Lab Routine Erythrocytosis Ordered: 01/09/2025 IRON, TIBC, AND PERCENT SATURATION Lab Routine Erythrocytosis Ordered: 01/09/2025 FERRITIN Lab Routine Erythrocytosis Expected: 01/09/2025, Expires: 01/09/2026 RETICULOCYTES Lab Routine Erythrocytosis Ordered: 01/09/2025 ERYTHROPOIETIN LEVEL Lab Routine Erythrocytosis Ordered: 01/09/2025 documented as of this encounter Visit Diagnoses Diagnosis Erythrocytosis- Primary Reserved for inherently not codable concepts WITHOUT codable children documented in this encounter Care Teams Grizzly Worker Relationship Specialty Start Date End Date Ambika Nguyen MD [address] [place] [phone] PCP - General Internal Medicine 09/24/24 documented as of this encounter
[2025-01-09 10:51] LABS: Hematocrit 41.6 % (37.0-47.0); Hemoglobin 13.5 g/dL (12.0-15.0); Immature Granulocyte Percent A 0.4 % (0-0.5); Immature Reticulocyte Fraction 8.9 % (3.0-15.9); Lymphocytes Absolute Auto 2.18 K/mm3 (0.9-3.2); Mean Corpuscular HGB Conc 32.5 g/dl (32-36); Mean Corpuscular Hemoglobin 28.0 pg (26-34); Mean Corpuscular Volume 86.3 fl (80-100); Nucleated Red Blood Cells Absolute Auto 0.000 K/mm3 (0.0-0.012); Nucleated Red Blood Cells Perc 0.0 % (0.0-0.2); Platelet Count Result 326 k/mm3 (150-375); Red Blood Count 4.82 M/mm3 (4.2-5.4); Reticulocyte Hemoglobin Conten 32.0 pg (28.2-36.6); Reticulocytes Absolute 0.05 10^6/uL (0.02-0.10); White Blood Count 10.8 K/mm3 (4.5-10.0)
--- OUTSIDE RECORDS SUMMARY | 2025-01-09 11:26 | XMS_ITS | Encounter Summary ---
Author Organization [facility] Healthcare Address [address] [place] [address] Care Team Providers Care Type Copy Examiner Name Role Phone Medardo Ellington MD Primary Care Provider [phone] Javier Webster MD, Joe Nolasco Unavailable [phone] Sly Hdez MD Unavailable [phone] Encounter Details Date Type Department Care Team (Late st Contact Info) Description 01/01/2025 Results Follow-Up [facility] Obstetrical Gynecology [address] [address] Sly Hdez MD [address] [address] Surgical pathology Social History Tobacco Use Types Packs/Day Years Used Date Smoking Tobacco: Former Cigarettes S tarted: 08/2024 Vaping Alcohol Use Standard Drinks/Week Comments Never 0 (1 standard drink = 0.6 oz pur e alcohol) AUDIT-C Answer Date Recorded Q1: How often do you have a drink containing alcohol? Never 12/30/2024 Q2: How many drinks containi ng alcohol do you have on a typical day when you are drinking? Patient does not drink Q3: How often do you have si x or more drinks on one occasion? Never 12/30/2024 Personal Safety Answer Date Recorded Have you ever been in or are you currently in a harmful physical or emotional relationship or is someone making you feel afraid or unsafe? 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 Gender Identity Not on file Sexual Orientation Not on file documented as of this encounter Plan of Treatment Not on file documented as of this encounter Visit Diagnoses Not on filedocumented in this encounter Care Teams Type Copy Examiner Relationship Specialty Start Date End Date Medardo Ellington MD [address] [place] [address] PCP - General Family Practice 03/17/22 Joe Herrera Jr., MD [address] [facility] [address] [place], [place] [id number] Referring Physician Cardiology 12/13/24 Sly Hdez MD [address] [place] [address] [address] [place], [place] [id number] Consulting Physician Obstetrics and Gynecology 12/30/24 documented as of this encounter
--- OUTSIDE RECORDS SUMMARY | 2025-01-09 11:26 | XMS_ITS | Clinical Summary ---
Author Organization [facility] Alonso Address [address] [place] [address] Care Team Providers Care Hone Operator Name Role Phone Ambika Nguyen MD Primary Care Provider [phone] Allergies No known active allergies Medications atogepant (QULIPTA) 60 mg Tablet Take 60 mg by mouth daily. 06/25/2024 Active atomoxetine (STRATTERA) 60 mg capsule Take 60 mg by mouth 2 times daily. 07/24/2024 Active carvediloL (COREG) 12.5 mg tablet Take 12.5 mg by mouth 2 times daily. 07/23/2024 Active celecoxib (CeleBREX) 200 mg capsule Take 200 mg by mouth 2 times daily. 07/25/2024 Active Magnesium 200 mg Tablet 210 mg. Active rizatriptan (MAXALT) 10 mg Tablet Take 10 mg by mouth 1 time daily as needed. 04/25/2024 Active ubrogepant (UBRELVY) 100 mg tablet Take 100 mg by mouth 2 times daily as needed. 07/30/2024 Active esomeprazole (NexIUM) 20 mg Capsule, Delayed Release(E.C.) Take 20 mg by mouth daily before breakfast. Active mv-min/FA/vit K/lutein/zeaxant (VITEYES AREDS 2 PLUS MULTIVIT ORAL) Take by mouth. Active CALCIUM CARB-VITAMIN D3-VIT K2 ORAL Take by mouth. Active multivitamin (DAILY-ESHA) tablet Take 1 Tablet by mouth daily. Active Encounters Date Type Department Care Team Description 01/09/2025 10:00 AM NET ARCHITECT Office Visit [facility] Oncology and Hematology - [place] [address] [place] [address] Camilla Rodríguez MD Erythrocytosis (Primary Dx) from Last 3 Months Family History Medical History Relation Name Comments No Known Problems Brother No Known Problems Child 1 No Known Problems Child 2 Heart Disease Father Kidney Cancer Mother renal cell car cinoma Relation Name Status Comments Brother Alive Child 1 Alive Child 2 Alive Father Alive Mother Alive Social History Tobacco Use Types Packs/Day Years [...] Comments Blood Pressure 135/88 01/09/2025 9:58 AM NET ARCHITECT Pulse 85 01/09/2025 9:58 AM NET ARCHITECT Temperature 36.2 C (97.1 F) 01/09/2025 9:58 AM NET ARCHITECT Respiratory Rate 15 01/09/2025 9:58 AM NET ARCHITECT Oxygen Saturation 98% 01/09/2025 9:58 AM NET ARCHITECT Inhaled Oxygen Concentration - - Weight 93.8 kg (206 lb 12.8 oz) 01/09/2025 9:58 AM NET ARCHITECT Height 175.3 cm (5' 9) 01/09/2025 9:58 AM NET ARCHITECT Body Mass Index 30.54 01/09/2025 9:58 AM NET ARCHITECT Plan of Treatment Upcoming Encounters Date Type Department Care Team (Late st Contact Info) Description 01/30/2025 4:30 PM NET ARCHITECT Telephone Check Up [facility] Oncology and Hematology - [place] [address] [place] [address] Shakeel Pierson MD [address] [facility] [address] [place] [address] Health Maintenance Due Date Last Done Comments HPV/Cotest (21-29) 2002 HPV VACCINES (1 - 3-dose SCDM series) 2008 CERVICAL CANCER SCREENING 08/28/2011 HPV/Cotest (30-65) 08/28/2011 PAP SMEAR 08/28/2011 Preventative Visit- Commercial 02/28/2024 BREAST CANCER SCREENING 06/07/2024 06/08/19 24, 06/08/2023, 12/31/2018 INFLUENZA VACCINE (#1) 2024 12/30/2019 COVID-19 Vaccine ( season) 2024 03/29/2021, 03/24/2020, 02/25/2020 DTAP/TDAP/TD VACCINES (4 - T d or Tdap) 01/18/2034 01/19/2024, 08/26/2009, 03/12/2008 HEPATITIS B VACCINES Completed 03/09/2004, 10/08/2003, 09/08/2003 Insurance [facility] [id number] Care Teams Hone Operator Relationship Specialty Start Date End Date Ambika Nguyen MD [address] [place] [address] PCP - General Internal Medicine 09/24/24
--- OUTSIDE RECORDS SUMMARY | 2025-01-09 11:26 | XMS_ITS | Clinical Summary ---
Author Organization [facility] [address] Address [address] [place] [address] Care Team Providers Care Ore Puncher Name Role Phone Unavailable Primary Care Provider Unavailabl e Source Comments [facility],non-owned Affiliates and Associated Physician Practices is amultiple site organization consisting of ambulatory clinics and hospital sitesin [place], [place] and [place]. This disclosure is being madepursuant to the Care Everywhere program and may not contain all information available regarding this patient. Last updated 17.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 Gender Identity Not on file Sexual Orientation Not on file Plan of Treatment Health Maintenance Due Date Last Done Comments LIPID TESTING 1981 MAMMOGRAM 1981 HIV SCREENING 1996 HEPATITIS C SCREENING 08/23/1999 DTAP/TDAP/TD VACCINES (1 - Tdap) 2000 HEPATITIS B VACCINE (1 of 3 - 19+ 3-dose series) 2000 PAP SMEAR 2002 HPV VACCINE (1 - 3-dose SCDM series) 2008 DEPRESSION SCREENING 02/28/2024 COVID-19 VACCINE ( - 2023-2 5 season) 2024 INFLUENZA VACCINE (#1) 2024 ZOSTER VACCINE (1 of 2) 08/28/2031 HIB VACCINE Aged Out No longer eligi ble based on patient's age to complete this topic MENINGOCOCCAL (Group B) VACC INE SHARED DECISION-MAKING Aged Out No longer eligibl e based on patient's age to complete this topic MENINGOCOCCAL GROUPS A/C/Y/W VACCINE Aged Out No longer eligible b ased on patient's age to complete this topic PNEUMOCOCCAL VACCINE Aged Out No long er eligible based on patient's age to complete this topic Insurance SELF PAY NO INSURANCE Member Subscriber Plan / Payer (Ef fective for All Dates) Name:Cara Corral Member ID:Not on file Relation to Subscriber:Not on file Name:CARA CORRAL Subscriber ID:Not on file (Home) Address: [address] [place] [address] Payer ID:Not on file Group ID:Not on file Type:Self Pay Address: [facility]
--- OUTSIDE RECORDS SUMMARY | 2025-01-09 11:26 | XMS_ITS | Clinical Summary ---
Author Organization [facility] Address [address] [place] [address] Care Team Providers Care Airborne Sensor Specialist Name Role Phone Medardo Ellington MD Primary Care Provider [phone] Javier Webster MD, Joe Johnson. Unavailable [phone] Sly Hdez MD Unavailable [phone] Allergies Active Allergy Reactions Criticality Noted Date Comments Other Headache Low 01/20/2021 And sausages cause left sided headaches Sulfamethoxazole-Tr imethoprim Other (See comments) 07/19/2009 States medication did not work for her and MD put down as an allergy. Pt denies any reaction. Medications traMADoL (ULTRAM) 50 mg tablet Take 1 tablet (50 mg total) by mouth every 6 (six) hours 10 tablet 02/23/20 24 Active Additional Information Patient not taking.Reported on 09/17/2024 atogepant 60 mg tablet Take 60 mg by mouth daily Qulipta 06/26/19 25 026 Active atomoxetine (STRATTERA) 60 mg capsule Take 1 capsule (60 mg total) by mouth collections assistant before breakfast 07/25/19 25 Active carvediloL (COREG) 12.5 mg tablet Take 1 tablet (12.5 mg total) by mouth 2 (two) times a day 07/24/19 25 Active carvediloL (COREG) 6.25 mg tablet 07/03/19 25 Active celecoxib (CeleBREX) 200 mg capsule Take 1 capsule (200 mg total) by mouth 2 (two) times a day 07/26/19 25 Active clonazePAM (KlonoPIN) 0.5 mg tablet Take 1 tablet (0.5 mg total) by mouth 2 (two) times a day as needed 08/30/[address] (NexIUM) 20 mg capsule Take 1 capsule (20 mg total) by mouth daily 12/29/19 17 Active linaCLOtide (LINZESS) 290 mcg capsule Take on empty stomach at least 30 minutes prior to first meal of the day. Swallow whole. Do not open capsule or chew. 09/12/19 25 Active ondansetron ODT (ZOFRAN-ODT) 4 mg disintegrating tablet Take 1 tablet (4 mg total) by mouth every 6 (six) hours as needed for nausea Active rizatriptan (MAXALT) 10 mg tablet TAKE 1 TABLET (10 MG TOTAL) BY MOUTH DAILY NEEDED FOR MIGRAINE. 04/25/19 25 Active tranexamic acid (LYSTEDA) 650 mg tablet 07/02/19 25 Active Ubrelvy 100 mg tablet TAKE 1 TABLET (100 MG) BY MOUTH 2 (TWO) TIMES DAILY NEEDED. MAX 2 TABLETS (200 MG) IN 24 HOURS Active magnesium gluconate 200 mg tabletIndications: hypomagnesemia 1.05 tablets (210 mg total) Active vit C/E/Zn/coppr/lutei n/zeaxan (EYE HEALTH AREDS-2 ORAL) Take by mouth 2 (two) times a day Active calc/D3/mag cit,ox/K2/elxq276 (ALIVE CALCIUM-VITAMIN D3-K2 ORAL) Take 10,000 Units by mouth daily Active acetaminophen (TylenoL) 325 mg tablet Take 2 tablets (650 mg total) by mouth every 6 (six) hours as needed for pain 30 tablet 1 12/31/19 25 Active ibuprofen (ADVIL,MOTRIN) 600 mg tablet Take 1 tablet (600 mg total) by mouth every 6 (six) hours as needed for pain 30 tablet 1 12/31/19 25 Active polyethylene glycol (MIRALAX) 17 gram/dose bulk powder Take 17 g by mouth daily 238 g 12/31/19 25 Active oxyCODONE (ROXICODONE) 5 mg immediate release tabletIndications: Pain Take 1 tablet (5 mg total) by mouth every 4 (four) hours as needed for pain (for severe pain (8-10)) 20 tablet 12/31/19 25 Active metroNIDAZOLE (FLAGYL) 500 mg tablet Take 1 tablet (500 mg total) by mouth 2 (two) times a day for 7 days 14 tablet 12/31/19 25 025 Active Problems Problem Noted Date Diagnosed Date Right ovarian cyst 10/15/2024 Menorrhagia with regular cycle 09/17/2024 Primary hypertension 07/02/2024 Encounters Date Type Department Care Team Description 01/01/2025 Results Follow-Up [facility] Obstetrical Gynecology [address] [place] [phone] Sly Hdez MD Surgical pathology 12/30/2024 10:35 AM INBOUND CUSTOMER SERVICE REPRESENTATIVE - 12/30/2024 1:40 PM INBOUND CUSTOMER SERVICE REPRESENTATIVE Surgery [facility] OR [address] [place] [phone] Sly Hdez MD ROBOTIC ASSISTED LAPAROSCOPIC HYSTERECTOMY, BILATERAL SALPINGECTOMY 12/30/2024 10:22 AM INBOUND CUSTOMER SERVICE REPRESENTATIVE Anesthesia Event [facility] OR [address] [place] [id number] Galina Chan MD [place], Matthew Edward, MD 12/30/2024 8:26 AM INBOUND CUSTOMER SERVICE REPRESENTATIVE - 12/30/2024 2:35 PM INBOUND CUSTOMER SERVICE REPRESENTATIVE Hospital Encounter [facility] OR [address] [place] [phone] Sly Hdez MD Menorrhagia with regular cycle (Primary Dx); Right ovarian cyst Discharge Disposition: Discharge to home or self care 12/24/2024 11:20 AM CDT Pre-Admission Testing [facility] Pre Admit Testing [address] [place] [phone] Pre-op testing; Menorrhagia with regular cycle; Right ovarian cyst 12/24/2024 Results Follow-Up [facility] Obstetrical Gynecology [address] [place] [phone] Sly Hdez MD CBC with auto differential, ABO/Rh, Antibody screen, Differential, auto 12/24/2024 Orders Only [facility] Pre Admit Testing [address] [place] [phone] Mejia Roper MD Pre-op testing (Primary Dx) 10/15/2024 11:45 AM CDT Office Visit [facility] Obstetrical Gynecology [address] [place] [phone] Sly Hdez MD Menorrhagia with regular cycle (Primary Dx); Right ovarian cyst 10/15/2024 11:00 AM CDT Ancillary Procedure [facility] Obstetrical Gynecology [address] [place] [phone] Menorrhagia with regular cycle from Last 3 Months Surgical History Surgery Date Site/Laterality Comments CHOLECYSTECTOMY SECTION x2 TUBAL LIGATION EYE SURGERY x 3 for a lazy eyes LASIK Medical History Medical History Date Comments Irritable bowel syndrome (IBS) Migraines Anxiety Adhd Arthritis right thumb Hypertension Arrhythmia sinus tachycardi a - on carvediol managed GERD (gastroesophageal reflux disease) Family History Medical History Relation Name Comments Breast cancer Cousin Hypertension Father's Brother Breast cancer Father's Sister Hypertension Father's Sister Kidney cancer Mother Breast cancer Mother's Sister Colon cancer Paternal Grandmother Ovarian cancer Neg Hx Uterine cancer Neg Hx Relation Name Status Comments Cousin Father's Brother Father's Sister Mother Mother's Sister Paternal Grandmother Social History Tobacco Use Types Packs/Day Years Used Date Smoking Tobacco: Former Cigarettes S tarted: 08/2024 Vaping Tobacco Cessation:Counseling Given: Not Answered Alcohol Use Standard Drinks/Week Comments Never 0 [...] on file Legal Sex Female 6:09 PM INBOUND CUSTOMER SERVICE REPRESENTATIVE Gender Identity Not on file Sexual Orientation Not on file Obstetrics History Para Term AB IAB SAB Ectopic Multiple Livin g Live Births 2 2 2 2 Date Outcome GA Total Labor Labor/2nd/3rd Weight Sex Type Anes PTL Monica A1 A5 Name Clin Term Term Last Filed Vital Signs Vital Sign Reading Time Taken Comments Blood Pressure 131/76 12/30/2024 2:05 PM INBOUND CUSTOMER SERVICE REPRESENTATIVE Pulse 85 12/30/2024 2:05 PM INBOUND CUSTOMER SERVICE REPRESENTATIVE Temperature 36.2 C (97.1 F) 12/30/2024 1:35 PM INBOUND CUSTOMER SERVICE REPRESENTATIVE Respiratory Rate 19 12/30/2024 1:30 PM INBOUND CUSTOMER SERVICE REPRESENTATIVE Oxygen Saturation 100% 12/30/2024 2:05 PM INBOUND CUSTOMER SERVICE REPRESENTATIVE Inhaled Oxygen Concentration - - Weight 92.3 kg (203 lb 6.4 oz) 12/30/2024 8:34 A M INBOUND CUSTOMER SERVICE REPRESENTATIVE Height 175.3 cm (5' 9) 12/30/2024 8:34 AM INBOUND CUSTOMER SERVICE REPRESENTATIVE Body Mass Index 30.04 12/30/2024 8:34 AM INBOUND CUSTOMER SERVICE REPRESENTATIVE Plan of Treatment Health Maintenance Due Date Last Done Comments Cervical Cancer Screening 1980 Depression Screening 1980 Hepatitis C Screening 1980 Regular Well Visit/Exam 18-64 08/28/1999 HPV Vaccines (1 - 3-dose SCDM series) 2008 Breast Cancer Screening-Mammogram 06/07/2024 06/08/2023, 06/08/2023, 12/31/2018 Covid-19 Vaccine ( season) 2024 03/29/2021, 03/24/2020, 02/25/2020 DTaP/Tdap/Td Vaccine (4 - Td or Tdap) 01/18/2034 01/19/2024, 08/26/2009, 03/12/2008 Varicella Vaccines Completed 10/12/1992, 12/02/1982 Hepatitis B Screening Completed 03/09/2004 , 10/08/2003, 09/08/2003 Influenza Vaccine Completed 12/19/2024, , 12/04/2020, Additional history exists Pneumococcal vaccine <65 Aged Out No longer eligible based on patient's age to complete this topic Procedures Procedure Name Priority Date/Time Associated Diagnosis Comments SURGICAL PATHOLOGY Routine 12/30/2024 11 :40 AM INBOUND CUSTOMER SERVICE REPRESENTATIVE Menorrhagia with regular cycle Right ovarian cyst KS AN PROCEDURE PLACEHOLDER Routine 12/30/2024 10:43 AM INBOUND CUSTOMER SERVICE REPRESENTATIVE KS AN ELECTIVE ENDOTRACHEAL AIRWAY Routine 12/30/2024 10:43 AM INBOUND CUSTOMER SERVICE REPRESENTATIVE XI HYSTERECTOMY - LAPAROSCOPIC ROBOTIC ASSISTED 12/30/2024 10:22 AM INBOUND CUSTOMER SERVICE REPRESENTATIVE Menorrhagia with regular cycle Right ovarian cyst POCT HCG, URINE Routine 12/30/2024 9:09 AM INBOUND CUSTOMER SERVICE REPRESENTATIVE B ABO / RH CONFIRMATION TESTING STAT 12/30/2024 8:56 AM INBOUND CUSTOMER SERVICE REPRESENTATIVE EGFR Routine 12/24/2024 11:37 AM CDT Pre-op testing DIFFERENTIAL AUTO Routine 12/24/2024 11: 37 AM CDT Menorrhagia with regular cycle Right ovarian cyst ANTIBODY SCREEN Routine 12/24/2024 11:37 AM CDT Menorrhagia with regular cycle Right ovarian cyst ABO/RH Routine 12/24/2024 11:37 AM CDT Menorrhagia with regular cycle Right ovarian cyst CBC WITH AUTO DIFFERENTIAL Routine 12/24/2024 11:37 AM CDT Menorrhagia with regular cycle Right ovarian cyst TYPE AND SCREEN 14 DAY Routine 12/24/2024 11:37 AM CDT Menorrhagia with regular cycle Right ovarian cyst BASIC METABOLIC PANEL Routine 12/24/2024 11:37 AM CDT Pre-op testing US PELVIS W ENDOVAGINAL Schedule Routine, Read Routine (OP Routine) 10/15/2024 10:55 AM CDT Menorrhagia with regular cycle from Last 3 Months Results * Surgical pathology (12/30/2024 11:40 AM INBOUND CUSTOMER SERVICE REPRESENTATIVE) Tissue (Uterus with/without tubes & ovaries, Non-neoplastic) 12/30/2024 11:40 AM INBOUND CUSTOMER SERVICE REPRESENTATIVE Narrative PATHOLOGY [facility] - 12/31/2024 5:58 PM INBOUND CUSTOMER SERVICE REPRESENTATIVE [facility] Department of Pathology [address] [place] [address] Note to Patients: This report may contain a detailed description of human tissue sent by a health care provider to the laboratory for pathologic evaluation. The content of this report is essential for diagnosis and may provide important critical findings. This information may be unfamiliar to patients to review without a medical professional present. It is advised that the patient review this report in the presence of a health care provider who can answer questions and explain the details. Final Report Patient Name: CARA CERDA : 1980 (Age: 44) Gender: F Address: [address] [place] [id number] Hospital #: [id number] Service: Surgery Location: Patient Type: [facility] OUTPATIENT Taken: 12/30/2024 Received: 12/30/2024 Accessioned: 12/30/2024 Reported: 12/31/2024 Physician(s): Tamara Mix M.D. Diagnosis: Uterus, cervix, bilateral fallopian tubes, hysterectomy and bilateral salpingectomy - Proliferative pattern endometrium - Myometrium with no histopathologic abnormality - Cervix with no histopathologic abnormality - Fallopian tubes with tubal ligation clips - No evidence of dysplasia, hyperplasia, or malignancy Karol Chavarria MD PhD Report Electronically Reviewed and Signed Out By Karol Chavarria MD PhD 12/31/2024 17:58:53 Specimen(s) Received: A: uterus, cervix, bilateral tubes Microscopic Description: Unless gross-only is specified, the final diagnosis for each specimen is based on a microscopic examination of each tissue sample. Clinical History: The patient is a 44-year-old woman with menorrhagia with a regular cycle and a right ovarian cyst. Operative procedure: Robotic assisted laparoscopic hysterectomy with bilateral salpingectomy. Gross Description Received in formalin, labeled with the patient s identifiers and uterus, cervix, bilateral tubes and consists of an intact uterus and cervix (162 g, 10.5 cm SI x 7.0 cm RL x 4.5 cm AP) with attached bilateral fimbriated fallopian tubes. The serosa is romano-pink and glistening with a single subserosal nodule located on the anterior aspect, measuring 0.5 cm. The cervix (3.5 x 3.1 cm) has a gaping os and romano-pink, glistening ectocervical mucosa. The endocervical canal is romano-red and corrugated with scattered cysts filled with gelatinous fluid, ranging from 0.2-0.5 cm. The endometrium (0.6 cm in thickness) is romano-red, focally hemorrhagic and lush. The myometrium (2.2 cm in thickness) is romano-pink and coarsely trabeculated. No intramural nodules are grossly identified. Both fallopian tubes (right- 10.2 cm in length x 0.7 cm in diameter, left- 8.4 cm in length x 0.8 cm in diameter) have attached Filshie clips located near the cornua. The serosa of both tubes is dark red and glistening. Sectioning reveals stellate lumina, and grossly unremarkable fimbriae. Felt Hooker sections are submitted as follows: A1 Subserosal nodule and anterior cervix A2 Posterior cervix A3 Anterior endomyometrium A4 Posterior endomyometrium A5 Right fallopian tube (fimbriae, bisected) A6 Left fallopian tube (fimbriae, bisected). Elisa Arizmendi jjmhb/12/30/2024 14:41 ARUN Harding PA ([facility]) Microscopic slide review and interpretation for this case was performed at [facility], Department of Surgical Pathology, [address] [facility], [place] [id number], [place] [address] IA # [id number] Sly Hdez MD LAB PATHOLOGY ORDERABLES Final Result PATHOLOGY [facility] * KS AN ELECTIVE ENDOTRACHEAL AIRWAY, KS AN PROCEDURE PLACEHOLDER (12/30/2024 10:43 AM INBOUND CUSTOMER SERVICE REPRESENTATIVE) Zeeshan Madden CRNA - 12/30/2024 10:43 AM INBOUND CUSTOMER SERVICE REPRESENTATIVE Zeeshan Don CRNA 12/30/2024 10:43 AM Airway Patient location: OR Urgency: elective Indications for airway management: anesthesia Difficult airway: no Staff: Placed by: ENVIRONMENTAL STUDIES DEPARTMENT CHAIR: Zeeshan Don CRNA Emergent airway documentation: Risks and benefits discussed: yes Consent obtained: yes Consent given by: patient Airway prep: Preoxygenated: yes Patient position: sniffing Mask difficulty assessment: 2 - vent by mask + OA or adjuvant Spontaneous ventilation during airway: absent Sedation level during airway: deep Final airway details: Final airway type: endotracheal airway Tube type: ETT ETT size: 7.0 mm Cuffed: yes Technique used for successful ETT placement: direct laryngoscopy Devices/Methods used in placement: intubating stylet Insertion site: oral Blade type: Sindy Blade size: 3 Cormack-Lehane (direct): grade I - full view of glottis Cuff inflated with: air ETT to lips: 22 cm Placement verified by: auscultation and CO2 detection Airway secured with: other (pink tape) Number of attempts: 1 us Galina Chan MD ANESTHESIA ORDERABLES Final Resu lt * POCT hCG, urine (12/30/2024 9:09 AM INBOUND CUSTOMER SERVICE REPRESENTATIVE) HCG, ur, POC Negative Negative Comment:Testing performed by : [address] [address] Urine 12/30/2024 9:09 AM INBOUND CUSTOMER SERVICE REPRESENTATIVE 12/30/2024 9:09 AM INBOUND CUSTOMER SERVICE REPRESENTATIVE us Sly Hdez MD LAB POCT ORDERABLES - DE VICE Final Result Performing Organization Address [facility] Co de Phone Number [facility] [phone] [facility] Department [place] [address] * ABO / Rh Confirmation Testing (12/30/2024 8:56 AM INBOUND CUSTOMER SERVICE REPRESENTATIVE) ABO/Rh Confirmation B Positive MHB Comment:Testing performed by : [address] [address] Blood 12/30/2024 8:56 AM INBOUND CUSTOMER SERVICE REPRESENTATIVE 12/30/2024 9:05 AM INBOUND CUSTOMER SERVICE REPRESENTATIVE us Sly Hdez MD LAB BLOOD ORDERABLES Fin al Result Performing Organization Address [facility] de Phone Number MADELAINE [facility] [place] [address] MHB * eGFR (12/24/2024 11:37 AM CDT) eGFR >90 >=60 mL/min/1. 73 m2 Comment: Interpretive Data Reference Interval Normal >/= 90 mL/min/1.73m2 Mildly decreased* 60 - 89 mL/min/1.73m2 Mildly to moderately decreased 45 - 59 mL/min/1.73m2 Moderately to severely decreased 30 - 44 mL/min/1.73m2 Severely decreased 15 - 29 mL/min/1.73m2 Kidney Failure < 15 mL/min/1.73m2 *Relative to young adult level Estimated glomerular filtration rate is determined by the 2020 CKD-EPI equation recommended by the National Kidney Foundation (A Unifying Approach to GFR Estimation: Recommendations of the NKF-ASK Task Force on Reassessing the Inclusion of Race in Diagnosing Kidney Disease, JASN 2020). The CKD-EPI equation should not be used for patients with unstable renal function and has not been validated in children and those over 70. Current interpretive data was last reviewed 2020. Testing performed by: [address] [address] Blood 12/24/2024 11:3 7 AM CDT 12/24/2024 11:49 AM CDT Mejia Roper MD LAB BLOOD ORDERABL ES Final Result Performing Organization Address [facility] Co de Phone Number MADELAINE [address] [facility] Department [place] [address] * Differential, auto (12/24/2024 11:37 AM CDT) Neutrophil abs 4.92 1.50 - 6.50 K/cumm Comment:Testing performed by : [address] [address] Imm gran abs 0.02 0.00 - 0.10 K/cumm MADELAINE Comment:Testing performed by : [address] [address] Lymphocyte abs 1.38 0.80 - 3.30 K/cumm CERNER Comment:Testing performed by : [address], [place]., [address] Monocyte abs 0.31 0.20 - 0.80 K/cumm [facility] Comment:Testing performed by : [address], [place]., [address] Eosinophil abs 0.08 0.00 - 0.50 K/cumm [facility] Comment:Testing performed by : [address], [place]., [address] Basophil abs 0.03 0.00 - 0.10 K/cumm [facility] Comment:Testing performed by : [address] [address] Neutrophil pct 73.0 % [facility] Comment: Interpretive Data Percent cell count reference ranges are not reported, since discordance with absolute values may lead to misinterpretation of CBC data. Current Interpretive Data was last revised on 2017. Testing performed by: [address] [address] Imm gran pct 0.3 % [facility] Comment: Interpretive Data Percent cell count reference ranges are not reported, since discordance with absolute values may lead to misinterpretation of CBC data. Current Interpretive Data was last revised on 2017. Testing performed by: [address] [address] Lymphocyte pct 20.5 % [facility] Comment: Interpretive Data Percent cell count reference ranges are not reported, since discordance with absolute values may lead to misinterpretation of CBC data. Current Interpretive Data was last revised on 2017. Testing performed by: [address] [address] Monocyte pct 4.6 % [facility] Comment: Interpretive Data Percent cell count reference ranges are not reported, since discordance with absolute values may lead to misinterpretation of CBC data. Current Interpretive Data was last revised on 2017. Testing performed by: [address] [address] Eosinophil pct 1.2 % CERNER Comment: Interpretive Data Percent cell count reference ranges are not reported, since discordance with absolute values may lead to misinterpretation of CBC data. Current Interpretive Data was last revised on 2017. Testing performed by: [address] [address] Basophil pct 0.4 % MADELAINE JENKINS Comment: Interpretive Data Percent cell count reference ranges are not reported, since discordance with absolute values may lead to misinterpretation of CBC data. Current Interpretive Data was last revised on 2017. Testing performed by: [address] [address] Blood 12/24/2024 11:3 7 AM CDT 12/24/2024 11:49 AM CDT us Sly Hdez MD LAB BLOOD ORDERABLES Fin al Result MADELAINE [address] [facility] Department [place] [address] * CBC with auto differential (12/24/2024 11:37 AM CDT) WBC 6.74 3.80 - 9.90 K/cumm Comment:Testing performed by : [address] [address] Hgb 13.4 11.9 - 15.5 g/dL MADELAINE JENKINS Comment:Testing performed by : [address] [address] Hct 40.6 35.6 - 45.5 % MADELAINE JENKINS Comment:Testing performed by : [address] [address] Plt 224 150 - 400 K/cumm MADELAINE JENKINS Comment:Testing performed by : [address] [address] MPV 9.7 9.1 - 12.3 fL MADELAINE JENKINS Comment:Testing performed by : [address] [address] RBC 4.77 3.90 - 5.20 M/cumm MADELAINE JENKINS Comment:Testing performed by : [address] [address] MCV 85.1 81.3 - 96.4 fL MADELAINE JENKINS Comment:Testing performed by : [address] [address] MCH 28.1 27.1 - 33.3 pg MADELAINE JENKINS Comment:Testing performed by : [address] [address] MCHC 33.0 32.3 - 35.7 g/dL MADELAINE JENKINS Comment:Testing performed by : [address] [address] RDW CV 14.6 11.1 - 14.9 % MADELAINE Comment:Testing performed by : [address] [address] RDW SD 45.6 35.7 - 48.1 fL MADELAINE Comment:Testing performed by : [address] [address] NRBC abs 0.00 0.00 - 0.01 K/cumm MADELAINE Comment:Testing performed by : [address] [address] Blood 12/24/2024 11:3 7 AM CDT 12/24/2024 11:49 AM CDT Sly Hdez MD LAB BLOOD ORDERABLES Fin al Result Performing Organization Address City/State/[facility] Co de Phone Number MADELAINE [address] [facility] Department [place] [address] * ABO/Rh (12/24/2024 11:37 AM CDT) ABO/Rh B Positive Comment:Testing performed by : [address] [address] Blood 12/24/2024 11:3 7 AM CDT 12/24/2024 11:49 AM CDT Narrative MADELAINE - 12/24/2024 12:25 PM CDT Is this test being ordered in advance for a procedure?->Yes Expected date of procedure:->12/30/24 Has the patient been transfused in the past 3 months?->No Has the patient been in the past 3 months?->No Sly Hdez MD LAB BLOOD BANK TEST ORDDavid FLOWERS Final Result Performing Organization Address [facility] de Phone Number [address] [address] * Antibody screen (12/24/2024 11:37 AM CDT) [facility] Leigh Ann, indirect, Gel Interpretation Negative ABSC Comment:Testing performed by : [address] [address] Blood 12/24/2024 11:3 7 AM CDT 12/24/2024 11:49 AM CDT Narrative MADELAINE - 12/24/2024 12:29 PM CDT Is this test being ordered in advance for a procedure?->Yes Expected date of procedure:->12/30/24 Has the patient been transfused in the past 3 months?->No Has the patient been in the past 3 months?->No Sly Hdez MD LAB BLOOD BANK TEST ORDDavid FLOWERS Final Result Performing Organization Address [facility] de Phone Number [address] [address] * (ABNORMAL) Basic metabolic panel (12/24/2024 11:37 AM CDT) [facility] Sodium 132(L) 135 - 145 mmol/L Comment:Testing performed by : [address] [address] Potassium, pl 4.2 3.3 - 4.9 mmol/L MADELAINE Comment:Testing performed by : [address] [address] Chloride 98 97 - 110 mmol/L MADELAINE Comment:Testing performed by : [address] [address] CO2 26 22 - 32 mmol/L MADELAINE JENKINS Comment:Testing performed by : [address] [address] Anion gap 8 2 - 15 mmol/L MADELAINE Comment:Testing performed by : [address] [address] BUN 15 6 - 25 mg/dL MADELAINE Comment:Testing performed by : [address] [address] Creatinine 0.62 0.60 - 1.10 mg/dL MADELAINE Comment:Testing performed by : [address] [address] Glucose 85 70 - 199 mg/dL MADELAINE Comment: Interpretive Data Fasting glucose >/= 126 mg/dl is diagnostic for diabetes. Fasting is defined as no caloric intake [...] classification and Diagnosis of Diabetes Diabetes Care 202; 46: S19-S40. Current interpretive data was last revised 2022. Testing performed by: [address] [address] Calcium 9.0 8.5 - 10.3 mg/dL MADELAINE Comment:Testing performed by : [address] [address] Blood 12/24/2024 11:3 7 AM CDT 12/24/2024 11:49 AM CDT [facility]ative [facility] 12/24/2024 12:15 PM CDT PRE SURGICAL TESTING ONLY--* No surgery found *-* Cannot find OR case *-* Surgery not found *- us Mejia Roper MD LAB BLOOD ORDERABL ES Final Result MADELAINE [address] [facility] Department of Laboratories [place], [place] [id number] * US Pelvis W Endovaginal (10/15/2024 10:55 AM CDT) Cul de Sac Free fluid visualized VIEWPOINT Left Follicle Mean 11.5 mm&millim eters VIEWPOINT Left Follicle Mean 11.3 mm&millim eters VIEWPOINT Endometrial Thickness 12.1 mm&millim eters VIEWPOINT Anatomical Region Laterality Modality Pelvis N/A Ultrasound 10/15/2024 11:0 0 AM CDT Impressions 10/15/2024 11:59 AM CDT The uterus is retroverted and normal in size and arcuate morphology The endometrial thickness measured 12.1 mm Left ovary - normal with dominant follicles present <2cm Right ovary - 4.2cm simple cyst present There was moderate free fluid in the pelvis Narrative Procedure Note Sly Hdez MD - 10/15/2024 IMPRESSION: The uterus is retroverted and normal in size and arcuate morphology The endometrial thickness measured 12.1 mm Left ovary - normal with dominant follicles present <2cm Right ovary - 4.2cm simple cyst present There was moderate free fluid in the pelvis us Sly Hdez MD IMG US PROCEDURES Final Result from Last 3 Months Insurance [facility]O Address: [place] [address] [facility] HMO/PPO Address: [facility] [id number] [place] [address] Care Teams Airborne Sensor Specialist Relationship Specialty Start Date End Date Medardo Ellington MD [address] [place] [address] PCP - General Family Practice 03/17/22 Joe Herrera Jr., MD [id number] [place], [place] [id number] Referring Physician Cardiology 12/13/24 Sly Hdez MD [address] [place] [address] [address] [place] [address] Consulting Physician Obstetrics and Gynecology 12/30/24
--- OUTSIDE RECORDS SUMMARY | 2025-01-09 11:26 | XMS_ITS | Clinical Summary ---
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
--- OUTSIDE RECORDS SUMMARY | 2025-01-09 11:26 | XMS_ITS | Encounter Summary ---
Author Organization [facility] Healthcare Address [address] [place] [address] Care Team Providers Care Space Planner Name Role Phone Medardo Ellington MD Primary Care Provider + [phone] Javier Webster MD, Joe Nolasco Unavailable [phone] Sly Hdez MD Unavailable [phone] Encounter Details Date Type Department Care Team (Latest Contact Info) Description 12/24/2024 Results Follow-Up [facility] Medical Group Obstetrical Gynecology [address] [phone] Sly Hdez MD [address] [place] [id number] CBC with auto differential, ABO/Rh, Antibody screen, Differential, auto Social History Tobacco Use Types Packs/Day Years Used Date Smoking Tobacco: Every Day Cigarettes Vaping Alcohol Use Standard Drinks/Week Comments Never 0 (1 standard drink = 0.6 oz pur e alcohol) AUDIT-C Answer Date Recorded Q1: How often do you have a drink containing alcohol? Never 12/24/2024 Q2: How many drinks containi ng alcohol do you have on a typical day when you are drinking? Patient does not drink Q3: How often do you have si x or more drinks on one occasion? Never 12/24/2024 Personal Safety Answer Date Recorded Have you ever been in or are you currently in a harmful physical or emotional relationship or is someone making you feel afraid or unsafe? 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 Gender Identity Not on file Sexual Orientation Not on file documented as of this encounter Functional Status * Powell Fall Risk Question Answer Date of Assessment Author History of Falling 0 12/24/2024 10:35 AM Marisela Napier RN Secondary Diagnosis 15 12/24/2024 10:35 AM C Marisela Fajardo RN Ambulatory Aids 0 12/24/2024 10:35 AM CDT H Marisela bowman RN Intravenous Therapy/Heparin/Saline Lock 0 12/24/2024 10:35 AM Marisela An RN Gait/Transferring 0 12/24/2024 10:35 AM Marisela An RN Mental Status 0 12/24/2024 10:35 AM CDMarisela Lunsford RN Powell Fall Risk Score (Score >= 45 places fall precaution order) 15 12/24/2024 10:35 AM Marisela An RN Prior Fall Event (Autopopulated from EMR) None found 12/24/2024 10:35 AM Parish RN * AUDIT-C Score Answer Date of Assessment Author 0 12/24/2024 10:53 AM Marisela An RN * Alcohol Use Question Answer Date of Assessment Author Q1: How often do you have a drink containing alcohol? Never 12/24/2024 10:53 AM Marisela An RN Q2: How many drinks containing alcohol do you have on a typical day when you are drinking? Patient does not drink 12/24/2024 10:53 AM Marisela An RN Q3: How often do you have six or more drinks on one occasion? Never 12/24/2024 10:53 AM Marisela An RN documented as of this encounter Plan of Treatment Not on file documented as of this encounter Visit Diagnoses Not on filedocumented in this encounter Care Teams Space Planner Relationship Specialty Start Date End Date Medardo Ellington MD [address] [place] [address] PCP - General Family Practice 03/17/22 Joe Herrera Jr., MD [address] [place] [address] Referring Physician Cardiology 12/13/24 Sly Hdez MD [address] [place] [phone] Consulting Physician Obstetrics and Gynecology 12/30/24 documented as of this encounter
[2025-01-09 13:54] LABS: Iron 46 ug/dL (37-170)
[2025-01-09 13:56] LABS: Alanine Aminotransferase 23 U/L (6-35); Albumin Level 4.0 g/dL (3.5-5.1); Alkaline Phosphatase 74 U/L (38-126); Anion Gap 6 mmol/L (4-12); Aspartate Amino Transferase 20 U/L (14-36); Bilirubin,Total 0.3 mg/dL (0.2-1.3); Blood Urea Nitrogen 16 mg/dL (7-17); Calcium 8.9 mg/dL (8.4-10.2); Carbon Dioxide 30 mmol/L (22-30); Chloride 97 mmol/L (98-107); Estimated Glomerular Filt Rate > 60; Glucose 86 mg/dL (65-110); Potassium 4.6 mmol/L (3.4-5.0); Sodium 133 mmol/L (137-145); Total Protein 7.2 g/dL (6.3-8.2)
[2025-01-09 14:18] LABS: Percent Iron Saturation 15 % (20-50)
[2025-01-09 14:35] LABS: Ferritin 14.10 ng/mL (6.24-137)
== END 2025-01-09 10:31 | disposition home or self-care (01) ==
LOC: ANHLAB 10:31
PROVIDERS: PCP Family Medicine; Visit Provider Internal Medicine Hematology & Oncology
DX: D75.1 Secondary polycythemia (principal); D50.9 Iron deficiency anemia, unspecified
CPT/HCPCS: 36415; 80053; 82668; 82728; 83540; 83550; 85025; 85046